=== PATIENT | male | born 1940 | race Caucasian/White ===

== ENCOUNTER 2017-05-05 13:58 | Inpatient (IN) | payer MEDICARE ==
[2017-05-05] MEDS ORDERED: NS 0.9% 1000 ML* 1,000 ML IV ONE (14:25)
[2017-05-05 14:56] LABS: Urine Bilirubin Negative (Negative); Urine Glucose Negative (Negative); Urine Nitrite Negative (Negative)
--- NOTE | 2017-05-05 15:01 | RAD ---
INDICATION: Dizziness, CHF. COMPARISON: Comparison is made with a prior study from July 19, 2016. TECHNIQUE: A portable view of the chest was obtained. FINDINGS: The heart appears mildly enlarged and unchanged. The lungs appear hyperinflated and grossly clear. No pleural effusion is seen. IMPRESSION: NO EVIDENCE FOR ACUTE FINDING.
[2017-05-05] MEDS ORDERED: diPHENhydraMINE IV* 50 MG/ML 1 ml VIAL (BENADRYL) IV ONE (15:12)
[2017-05-05 15:56] LABS: Hematocrit 41 % (42-52); Hemoglobin 13.8 g/dl (14.0-18.0); Mean Corpuscular HGB Conc 33 g/dl (31-36); Mean Corpuscular Hemoglobin 31 pg (27-31); Mean Corpuscular Volume 94 fL (80-94); Mean Platelet Volume 7 um3 (7.4-10.4); Red Blood Count 4.41 10^6/ul (4.0-5.4); Red Cell Distribution Width 14 % (10.5-15); White Blood Count 11.6 10^3/ul (3.5-10.8)
[2017-05-05 16:06] LABS: Comments Flag Yes
[2017-05-05 16:08] LABS: Add Diff/Slide Review? Slide Review Added
[2017-05-05 16:16] LABS: Troponin I 0.02 ng/mL (<0.04)
[2017-05-05 16:18] LABS: Albumin 3.8 g/dL (3.2-5.2); C Reactive Protein 2.75 mg/L (< 5.00); Calcium 9.4 mg/dL (8.6-10.3); EGFR African American 103.4 (>60); EGFR Non-African American 80.4 (>60); Globulin 2.7 g/dL (2-4); Magnesium 2.2 mg/dL (1.9-2.7); Potassium 3.7 mmol/L (3.5-5.0); Total Bilirubin 0.6 mg/dL (0.2-1.0); Total Protein 6.5 g/dL (6.4-8.9)
[2017-05-05 16:22] LABS: TSH (Thyroid Stimulating Horm) 1.72 mcIU/mL (0.34-5.60)
[2017-05-05] MEDS ORDERED: Acetaminophen TAB* 325 MG PO PRN (17:51)
[2017-05-05] MEDS ORDERED: Ondansetron INJ* 2 MG/ML VIAL IV PRN (17:54)
[2017-05-05] MEDS ORDERED: NS 0.9% 1000 ML* 1,000 ML IV SCH (18:00)
[2017-05-05] MEDS ORDERED: Albuterol 2.5 MG/3 ML NEB.SOL* (0.083%) INH PRN (18:06)
[2017-05-05] MEDS ORDERED: Dextrose 50% Syringe 50 ML* 25 GM/50 ML SYRINGE IV PUSH PRN (18:08)
[2017-05-05] MEDS ORDERED: Potassium Chlor TAB* 20 MEQ TAB.ER PO ONE (18:11)
[2017-05-05] MEDS: NS 0.9% 1000 ML* 2,000 ML IV ONE ×2 (18:19→18:20)
--- NOTE | 2017-05-05 20:19 | ED ---
Karla Cuba Alok, scribed for Ruiz Ornelas MD on 05/05/17 at 1522 . Shortness of Breath - HPI Summary HPI Summary: 76M presents to the ED BIBA for SOB accompanied by dizziness. Pt states that his dizziness has been on and off for the past 2 months, worsening today, and is described as a room-spinning. Pt states that his dizziness has improved significantly since EMS administered 20 mg Cardiosom. His dizziness worsens with standing and improves while in supine position. Pt also notes a chest discomfort since this morning as well as nausea and unsteady gait. Pt also notes a rash on his abd for the last 2 months with pruritus. Pt also notes diplopia of the left eye with h/o a left eye cataract. Pt denies GREENE. PMHx includes arthritis and DM. Pt denies anti-coagulant use. - History of Current Complaint Chief Complaint: EDShortnessOfBreath Time Seen by Provider: 05/05/17 14:02 Hx Obtained From: Patient Onset/Duration: Lasting Weeks, Still Present, Worse Since - This morning Current Severity: Moderate Dyspnea At: Exertion Associated Signs & Symptoms: Chest Pain Unrelated to Cough, Diaphoresis, Dizzy - Allergy/Home Medications Allergies/Adverse Reactions: Allergies Allergy/AdvReac Type Severity Reaction Status Date / Time Horse Allergy Allergy Difficulty Verified 07/20/16 14:12 Breathing/Wheezing Peanut-derived Allergy Difficulty Verified 02/05/16 17:05 Breathing/Wheezing Penicillins [PCN] Allergy Difficulty Verified 02/05/16 17:05 Breathing/Wheezing HORSE HAIR Allergy Difficulty Uncoded 02/05/16 17:05 Breathing/Wheezing Home Medications: Home Medications Chlorhexidine MOUTHWASH 0.12%* [Peridex Mouth Wash 0.12%*] 15 ml PO BID [History Confirmed 05/05/17] Lisinopril TAB* [Prinivil TAB*] 10 mg PO DAILY 05/05/17 [History Confirmed 05/05] PMH/Surg Hx/FS Hx/Imm Hx Endocrine/Hematology History: Reports: Hx Diabetes Cardiovascular History: Reports: Hx Hypertension Denies: Hx Congestive Heart Failure, Hx Pacemaker/ICD Respiratory History: Reports: Hx Asthma, Hx Chronic Obstructive Pulmonary Disease (COPD), Hx Sleep Apnea - bipap at night GI History: Reports: Hx Gastroesophageal Reflux Disease History: Reports: Other Problems/Disorders - urinary retention & turp Denies: Hx Renal Disease Sensory History: Reports: Hx Contacts or Glasses - for reading Denies: Hx Hearing Aid Opthamlomology History: Reports: Hx Contacts or Glasses - for reading Neurological History: Reports: Other Neuro Impairments/Disorders - le neuropathy Psychiatric History: Denies: Hx Panic Disorder - Surgical History Surgery Procedure, Year, and Place: turp @ [facility] [place]; cataract right eye - Immunization History Date of Tetanus Vaccine: Within 10 years Date of Influenza Vaccine: 2011 Infectious Disease History: No Infectious Disease History: Reports: Hx Clostridium Difficile, Hx of Known/ Suspected MRSA - 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, not active, Hx Shingles - not active Denies: Traveled Outside the [place] in Last 30 Days - Family History Known Family History: Negative: Cardiac Disease, Diabetes Family History: R& n/C - Social History Occupation: Retired Lives: With Family Alcohol Use: None Hx Substance Use: No Substance Use Type: Reports: None Hx Tobacco Use: Yes Smoking Status (MU): Former Smoker Review of Systems Negative: Fever Positive: Diplopia Positive: Chest Pain Positive: Shortness Of Breath Positive: Nausea Positive: Rash Neurological: Other - Dizziness, unsteady gait Negative: Headache All Other Systems Reviewed And Are Negative: Yes Physical Exam - Summary Physical Exam Summary: The patient is well-nourished in no acute distress and in no acute pain. Patient has no symptoms when sitting up. The skin is warm and dry and skin color reflects adequate perfusion. Maculopapular rash on trunk and upper extremities which looks to represent hives. HEENT: There is a horizontal nystagmus evident.The head is normocephalic and atraumatic. The pupils are equal and reactive. The conjunctivae are clear and without drainage. Nares are patent and without drainage. Mouth reveals moist mucous membranes and the throat is without erythema and exudate. The external ears are intact. The ear canals are patent and without drainage. The tympanic membranes are intact. Neck is supple with full range of motion and non-tender. There are no carotid bruits. There is no neck vein distension. Respiratory: Chest is non-tender. Lungs are clear to auscultation and breath sounds are symmetrical and equal. Cardiovascular: Heart is irregular but controlled. There is no murmur or rub auscultated. There is no peripheral edema and pulses are symmetrical and equal. Abdomen: The abdomen is obese, soft and non-tender. There are normal bowel sounds heard in all four quadrants and there is no organomegaly palpated. Musculoskeletal: There is no back pain noted. Extremities are non-tender with full range of motion. There is good capillary refill. There is no peripheral edema or calf tenderness elicited. No motor weakness. Neurological: Patient is alert and oriented to person, place and time. The patient has symmetrical motor strength in all four extremities. Cranial nerves are grossly intact. Deep tendon reflexes are symmetrical and equal in all four extremities. Psychiatric: The patient has an appropriate affect and does not exhibit any anxiety or depression. Triage Information Reviewed: Yes Vital Signs On Initial Exam: Initial Vitals Temp Pulse Resp BP Pulse Ox 98.3 F 69 22 148/88 100 05/05/17 14:04 05/05/17 14:04 05/05/17 14:04 05/05/17 14:04 05/05/17 14:04 Vital Signs Reviewed: Yes - [place] Coma Scale Coma Scale Total: 15 Diagnostics - Vital Signs Vital Signs Temp Pulse Resp BP Pulse Ox 05/05/17 14:10 10 05/05/17 14:09 148/88 05/05/17 14:04 98.3 F 69 22 148/88 100 - Laboratory Lab Results: Lab Results 05/05/17 Range/Units 14:28 Urine Color Yellow Urine Appearance Clear Urine pH 7.0 (5-9) Ur Specific [place] 1.006 L (1.010-1.030) Urine Protein Negative (Negative) Urine Ketones Negative (Negative) Urine Blood Negative (Negative) Urine Nitrate Negative (Negative) Urine Bilirubin Negative (Negative) Urine Urobilinogen Negative (Negative) Ur Leukocyte Esterase Negative (Negative) Urine Glucose Negative (Negative) Result Diagrams: 05/05/17 15:35 05/05/17 15:35 Lab Statement: Any lab studies that have been ordered have been reviewed, and results considered in the medical decision making process. - Radiology CXR Xray Interpretation: Positive (See Comments) - IMPRESSION: NO EVIDENCE FOR ACUTE FINDING. Radiology Interpretation Completed By: Radiologist - EKG [id number] Cardiac Rate: NL - 72 bpm EKG Rhythm: Sinus Rhythm Ectopy: PACs EKG Interpretation: Poor R-wave progression. Left axis deviation Course/Dx - Diagnoses Differential Diagnosis/HQI/PQRI: Positive: DC, Pneumonia, Other - new onset atrial fibrillation Provider Diagnoses: Orthostatic hypertension, New onset a-fib - Physician Notifications Discussed Care of Patient With: Nazanin Hutchins - Will admit pt to [facility] [place] Time Discussed With Above Provider: 17:21 Discharge - Discharge Plan Condition: Stable Disposition: ADMITTED TO [facility] documentation as recorded by the Karla aiken Alok accurately reflects the service I personally performed and the decisions made by me, Ruiz Ornelas MD.
[2017-05-05] MEDS: Metoprolol Tartrate TAB* 25 MG PO SCH (20:49)
[2017-05-05] MEDS: Apixaban* 5 MG TAB PO SCH (20:49)
[2017-05-05] MEDS: Chlorhexidine MOUTHWASH 0.12%* 15 ML UDC SWISH SPIT SCH (20:51)
[2017-05-05] MEDS: diPHENhydraMINE PO* 25 MG PO PRN (20:54)
[2017-05-06] MEDS: Levothyroxine TAB* 112 MCG TAB PO SCH (05:59)
[2017-05-06] MEDS: diPHENhydraMINE PO* 25 MG PO PRN ×3 (06:02→20:55)
[2017-05-06 06:21] LABS: Hematocrit 40 % (42-52); Hemoglobin 13.3 g/dl (14.0-18.0); Mean Corpuscular HGB Conc 33 g/dl (31-36); Mean Corpuscular Hemoglobin 31 pg (27-31); Mean Corpuscular Volume 95 fL (80-94); Mean Platelet Volume 7 um3 (7.4-10.4); Red Blood Count 4.25 10^6/ul (4.0-5.4); Red Cell Distribution Width 14 % (10.5-15); White Blood Count 10.2 10^3/ul (3.5-10.8)
[2017-05-06 06:35] LABS: BUN/Creatinine Ratio 10.8 (8-20); Calcium 9.1 mg/dL (8.6-10.3); EGFR African American 102.1 (>60); EGFR Non-African American 79.4 (>60); Potassium 4.1 mmol/L (3.5-5.0)
[2017-05-06] MEDS ORDERED: Lisinopril TAB* 10 MG PO SCH (09:00)
[2017-05-06] MEDS: Chlorhexidine MOUTHWASH 0.12%* 15 ML UDC SWISH SPIT SCH ×2 (09:47→20:55)
[2017-05-06] MEDS: Insulin LISPRO* 1 UNITS UNIT SUBCUT SCH ×3 (09:47→17:32)
[2017-05-06] MEDS: Metoprolol Tartrate TAB* 25 MG PO SCH ×2 (09:48→20:55)
[2017-05-06] MEDS: Tamsulosin CAP* 0.4 MG PO SCH (09:48)
[2017-05-06] MEDS: Apixaban* 5 MG TAB PO SCH ×2 (09:48→20:55)
--- NOTE | 2017-05-06 10:54 | PN ---
Subjective Date of Service: 05/06/17 Interval History: This is a 76 yo gentleman with DM, ANTONIETA, HTN, morbid obesity and HLD who presented with h/o lightheadedness and nausea. Initial EMS strips were interpreted as afib with HR 170-200 bpm and patient was admitted for additional monitoring. Patient has been asx since admission. No changes on telemetry Objective Active Medications: Acetaminophen (Tylenol Tab*) 650 mg PO Q4H PRN PRN Reason: FEVER/PAIN Albuterol (Ventolin Hfa Inhaler*) 1 puff INH BID PRN PRN Reason: SHORTNESS OF BREATH Albuterol (Ventolin 2.5 Mg/3 Ml Neb.Sary*) 2.5 mg INH Q2H PRN PRN Reason: SOB/WHEEZING Last Admin: 05/05/17 22:04 Dose: 2.5 mg Apixaban (Eliquis*) 5 mg PO BID [facility] Last Admin: 05/06/17 09:48 Dose: 5 mg Chlorhexidine Gluconate (Peridex Mouth Wash 0.12%*) 15 ml SWISH SPIT BID [facility] Last Admin: 05/06/17 09:47 Dose: 15 ml Dextrose (D50w Syringe 50 Ml*) 12.5 gm IV PUSH .FOR FS < 60 - SS PRN PRN Reason: FS < 60 Diphenhydramine HCl (Benadryl Po*) 25 mg PO Q6H PRN PRN Reason: ITCHING Last Admin: 05/06/17 06:02 Dose: 25 mg Insulin Human Lispro (Humalog*) 0 units SUBCUT AC [facility] PRN Reason: Protocol Last Admin: 05/06/17 09:47 Dose: 2 units Levothyroxine Sodium (Synthroid Tab*) 112 mcg PO 0600 [facility] Last Admin: 05/06/17 05:59 Dose: 112 mcg Lisinopril (Prinivil Tab*) 10 mg PO DAILY [facility] Last Admin: 05/06/17 09:48 Dose: 10 mg Metoprolol Tartrate (Lopressor Tab*) 12.5 mg PO Q12HR [facility] Last Admin: 05/06/17 09:48 Dose: 12.5 mg Ondansetron HCl (Zofran Inj*) 4 mg IV Q6H PRN PRN Reason: NAUSEA Tamsulosin HCl (Flomax Cap*) 0.4 mg PO DAILY [facility] Last Admin: 05/06/17 09:48 Dose: 0.4 mg Vital Signs: Temp Pulse Resp BP Pulse Ox 98.8 F 65 16 205/78 99 05/06/17 07:47 05/06/17 08:11 05/06/17 08:02 05/06/17 08:11 05/06/17 07:47 Oxygen Devices in Use Now: Nasal Cannula Appearance: Well appearing and in NAD Respiratory: Symmetrical Chest Expansion and Respiratory Effort, Clear to Auscultation Cardiovascular: NL Sounds; No Murmurs; No JVD, RRR Abdominal: NL Sounds; No Tenderness; No Distention Extremities: No Edema Neurological: Alert and Oriented x 3 Result Diagrams: 05/06/17 06:13 05/06/17 06:13 Additional Lab and Data: . Diagnostic Imaging: EKG - sinus, 1st deg block CXR - NAD Assess/Plan/Problems-Billing Assessment: This a 76 yo gentleman with DM, ANTONIETA, morbid obesity, and HLD who presented with c/o lightheadedness and nausea. Admitted with possible new afib with RVR. - Patient Problems (1) Palpitations Comment: Patient had c/o lightheadedness and nausea, initial EMS strip interpreted as afib with rate 170-200 bpm Re-evaluated by funeral planning counselor, Dr La, who felt that intial strips demonstrating afib was more likely to be artifact Cont anticoagulation with Eliquis and BB Hold off on any antiarrythmics at this time Echo ordered for tomorrow (2) HTN (hypertension) Comment: Noted to be rather persistently hypertensive Increase lisinopril and add amlodipine (3) DM type 2 (diabetes mellitus, type 2) Comment: Cont SS Humalog coverage (4) ANTONIETA (obstructive sleep apnea) Comment: cont BIPAP at night Consider repeat sleep study as an outpatient Plan for continuous pulse ox tonight as his symptoms have been generally occurring in the am (5) Hypothyroidism Comment: TSH WNL Cont current levothyroxine dose (6) DVT prophylaxis Comment: Danitza (7) Full code status Status and Disposition: Transition to inpatient. Cont telemetry monitoring. Possible dc tomorrow
[2017-05-06] MEDS ORDERED: Lisinopril TAB* 10 MG PO ONE (11:06)
[2017-05-06] MEDS ORDERED: amLODIPine TAB* 5 MG PO ONE (11:06)
--- NOTE | 2017-05-06 12:01 | HP ---
CC: EUNICE Blackwell* HISTORY AND PHYSICAL: DATE OF ADMISSION: 05/05/17 PRIMARY CARE PROVIDER: EUNICE Blackwell. ATTENDING PHYSICIAN WHILE IN THE HOSPITAL: Rosendo Collins MD* (report is being dictated by Harsh Romero NP). CHIEF COMPLAINT: 1. Lightheadedness with position change. 2. Dizziness. 3. Nausea. HISTORY OF PRESENT ILLNESS: Mr. Pierce is a 76-year-old male patient with morbid obesity, history of diabetes, COPD, hypertension, hyperlipidemia, ANTONIETA, asthma, and history of osteomyelitis in the past. He comes in today stating that over the last couple of weeks to two weeks he has noticed particularly when he wakes up in the morning he feels lightheaded, he feels dizzy, he feels nauseated. Typically these symptoms resolve after he sits down for a while, but he noticed today that when he got up the symptoms did not resolve. He kept feeling dizzy, he kept feeling lightheaded. He denied having any palpitations or chest pain. He denied having any orthopnea. He denied feeling short of breath. He did admit having fullness in his chest but he was concerned because his symptoms were not going away like they used to. He called 911 around noon time and it was noted when he got into ambulance heart rate was in 200s, they gave him diltiazem and his heart rate got down into the 60s and 70s with this and he appeared to be in AFib which was new for him. He denied any recent fevers. No recent change in medications. Denies having any abdominal pain or any nausea, vomiting or diarrhea. He was evaluated in the ER, rate was controlled all time, however it was noted that he was appeared to be orthostatic , because of this the hospitalist service was asked to evaluate for admission. PAST MEDICAL HISTORY: Significant for: 1. Diabetes. 2. Obesity. 3. COPD. 4. Hypertension. 5. Hyperlipidemia. 6. ANTONIETA. 7. Asthma. 8. Osteomyelitis. PAST SURGICAL HISTORY: 1. He has had a heart catheterization. 2. Toe amputation. 3. Prostatectomy. HOME MEDICATIONS: Include: 1. Flomax 0.4 mg daily. 2. Singulair 10 mg daily. 3. Metformin 1500 mg p.o. daily. 4. Lisinopril 10 mg daily. 5. Synthroid 112 mcg daily. 6. Lasix 40 mg daily. 7. Peridex mouthwash 15 cc p.o. b.i.d. 8. Ventolin one puff inhaled b.i.d. as needed. 9. Tylenol 650 mg p.o. every 4 hours as needed. ALLERGIES TO MEDICATIONS: Include PENICILLIN. FAMILY HISTORY: Mother had a history of liver cancer. Father had a history of aneurysm. SOCIAL HISTORY: He is a former smoker. He does not drink alcohol. Surrogate decision maker is his . REVIEW OF SYSTEMS: There is no documented fever. He denied having any significant weight change. There was no double vision. There was no ear discharge. He denied having any rhinorrhea, no sore throat, no thyroid enlargement. He denies having any chest pain. There was no orthopnea. No nocturnal dyspnea. There was no abdominal pain. No nausea. No vomiting. No dysuria. No frequency. No loss of consciousness. No pruritus and no skin ulcerations. Review of 14 systems completed, all others negative. PHYSICAL EXAMINATION GENERAL: At this time, Mr. Pierce is a 76-year-old male patient. He is sitting in the ER stretcher. Does not appear to be in acute distress. VITAL SIGNS: Blood pressure 145/81, pulse 64, respirations 16, O2 saturation 100% on 2 L, temperature 98.3. HEENT: Head atraumatic, normocephalic. Eyes: EOMs are intact. Sclerae anicteric and not pale. Throat: Oral mucosa appears to be moist. No oropharyngeal erythema. NECK: Supple. HEART: Heart sounds S1 and S2. Irregularly irregular rate. No murmurs, rubs, or gallops. LUNGS: Clear to auscultation. No wheezes, rales, or rhonchi. ABDOMEN: Soft, flat, nontender. Bowel sounds present. EXTREMITIES: Pulses 2+ throughout. He is able to move all 4 extremities with 5 /5 strength. NEUROLOGIC: He is awake, alert, oriented x3. Tongue is midline. Rn Quality are equal. No gross focal deficits. SKIN: Intact. LABORATORY DATA/DIAGNOSTIC DATA: Today revealed, WBC 11.6, RBC 4.41, hemoglobin 13.8, hematocrit 41, platelet count 295. INR 0.98. Sodium 137, potassium 3.7, chloride 105, bicarbonate 25, BUN 12, creatinine 0.92, glucose 121, lactic 1.8, calcium 9.4, magnesium 2.2. Total bilirubin 0.6, AST 18, ALT 16, alk phos 35, CK 104, troponin 0.02. CRP at 2.75. BNP of 45. Albumin 3.8. TSH normal. Urine was negative. He did have a chest x-ray obtained today, which reveals no evidence for acute finding. He had an EKG obtained today, which showed atrial fibrillation, rate of 72, no ST elevation or T wave inversions were noted. Old medical records were reviewed. ASSESSMENT AND PLAN: Mr. Pierce is a 76-year-old male patient, coming in to the ER today with complaints of an irregular heartbeat and feeling dizzy and just not feeling well, feeling nauseated in the morning. On evaluation in the ambulance, it was noted that he appeared to be in AFib with RVR, heart rate in the 200s. He was given a dose of diltiazem, he broke down into atrial fibrillation. On evaluation in the ED he was noted that he appeared to be orthostatic, when he stood up heart rate was 60 to 117, in addition his systolic went from 117 to 150s. We were asked to evaluate for admission, he will be admitted under observation status for: 1. Atrial fibrillation, at this point his rate is controlled. I will place him on Eliquis. We will continue him on Lopressor per the recommendation of Dr. La on 12.5 b.i.d. and titrate to effect. We will also get an echo tomorrow. I will not as he is clearly not having any chest pain and for the time being we will go ahead and try to get his potassium right or near 4. I am going to give him 40 mEq of K. 2. ANTONIETA. We will go ahead and place him on CPAP. 3. Diabetes, place him on a sliding scale. 4. COPD, I have ordered p.r.n. albuterol. 5. Hyperlipidemia, continue medications as described. 6. Asthma, p.r.n. albuterol has been ordered. 7. DVT prophylaxis, he will be on Eliquis. 8. Code status. Full code. 9. Fluids, nutrition. He can have a heart-healthy diet. TIME SPENT: Time spent on the admission was approximately 60 minutes, greater than half the time was spent [id number] with the patient obtaining my history and physical; other half the time spent going over the plan of care with the patient and implementing plan of care. I did discuss the plan of care with my attending, Dr. Collins, he is in agreement. HARSH ROMERO, CINETECHNICIAN [id number]/[facility] #: [id number] [facility]
[2017-05-06] MEDS: Albuterol HFA INHALER* 8 gm MDI INH PRN (14:47)
--- NOTE | 2017-05-07 00:47 | CONS ---
CARDIOLOGY CONSULTATION: DATE OF CONSULT: 05/06/17. INDICATION FOR CONSULTATION: Tachycardia, lightheadedness. HISTORY OF PRESENT ILLNESS: The patient was transported to the hospital after having an episode of feeling lightheaded and dizzy and near syncopal at home. The patient states that for the past coupl e of months, he has had these episodes in the morning where he gets up in the morning, he feels unco mfortable and unsteady on his feet. He feels like he is going to pass out. He states he rests afte r breakfast and these symptoms resolve. He does not have those symptoms the rest of the day. The pa joaquin states that over the last couple of months, he has taken his heart rate and blood pressure dur ing these episodes. Occasionally, his blood pressure will be elevated, systolic blood pressures to the 170s, diastolic pressures in the 80s. His heart rates have generally been below 100 beats a tri te. Yesterday morning, the patient had another one of these episodes. He felt like he was going to pass out and called the ambulance. On arrival of the ambulance, the patient was in tachycardia, registered up 190 beats a minute. The patient was given IV diltiazem in the ambulance on his route to the hospital. On arrival to [facility], he was in normal sinus rhythm with normal blood pressure. Overnight, the patient was in norm al sinus rhythm. He was started on Eliquis here in the hospital. I personally reviewed the EKG strips from the ambulance run and did not see any episodes of atrial f ibrillation. There was a tremendous amount of artifact on the telemetry strips, but no clear eviden ce of atrial fibrillation or atrial flutter. Each of the rhythms that had a clear baseline were in n ormal sinus rhythm with frequent PACs. Overnight, the patient has had no symptoms. PAST MEDICAL HISTORY: Significant for diabetes, morbid obesity, asthma, COPD, hypertension, hyperl ipidemia, obstructive sleep apnea, he does wear a CPAP machine, BPH. OUTPATIENT MEDICATIONS: 1. Singulair 5 mg a day. 2. Lasix 40 mg a day. 3. Levothyroxine 112 mcg a day. 4. Flomax 0.4 mg a day. 5. Albuterol inhaler. 6. Metformin 1500 mg a day. 7. Lisinopril 10 mg a day. ALLERGIES: PENICILLIN, TETANUS, HORSE SERUM. FAMILY HISTORY: No family history of early coronary artery disease or arrhythmias. SOCIAL HISTORY: He has used tobacco in the past, but has quit many years ago. Rare alcohol intake. He lives with his . He is retired. He does not get any regular exercise. He has severe arthr itis. PHYSICAL EXAM: Height is 5 feet 11 inches, weight is 320 pounds, temperature 98.8, heart rate is 50 , blood pressure 148/65, respiratory rate is 16, oxygen saturation 99% on room air. Sclerae are ani cteric. Oropharynx is pink without erythema. Carotids are 2+ without bruits. JVD is normal. Thyro id is normal. Cardiac Exam: S1, S2, without any murmurs, rubs, or gallops. Lungs are clear to ausc ultation bilaterally. There is no dullness to percussion. Abdomen is obese, soft, nontender and no ndistended. Normoactive bowel sounds. Extremities show 1+ edema. He has 2+ pulses throughout. The patient is awake, alert, and oriented. He moves all four extremities equally. LABORATORY STUDIES: CBC within normal limits. His hemoglobin is 13, hematocrit 40, platelet count 282. Chemistries within normal limits. BUN 10, creatinine 0.93. Initial troponin level 0.02. TSH 1.72. AST and ALT are within normal limits. IMPRESSION: This is a 76-year-old gentleman who had the ambulance called to his house because of ne ar syncope. The patient was originally diagnosed with atrial fibrillation with rapid ventricular re sponse up to a heart rate of 193 beats per minute. In reviewing the strips from the ambulance run, I do not see any evidence of atrial fibrillation. There is a tremendous amount of the artifact on t he monitored strips. All the monitored strips with clear QRSs within normal sinus rhythm. I am not exactly sure what the cause of his overall symptoms are. It seems less likely that it was a significant arrhythmia causing his symptoms. It may be related to his blood pressure. For now, my recommendation is to observe him overnight again to see if there is any arrhythmias. Th e patient will get an echocardiogram in the morning. The patient will continue on Eliquis for now in case he has any true episodes of atrial fibrillation . I will reevaluate his anticoagulation in the morning. This was discussed with Jose Antonio Marzulla, nurse practitioner. [id number]/[facility] #: [id number]
[2017-05-07] MEDS: diPHENhydraMINE PO* 25 MG PO PRN (06:03)
[2017-05-07] MEDS: Levothyroxine TAB* 112 MCG TAB PO SCH (06:03)
[2017-05-07 08:13] VITALS: BP 164/82
[2017-05-07] MEDS: Tamsulosin CAP* 0.4 MG PO SCH (08:45)
[2017-05-07] MEDS: Apixaban* 5 MG TAB PO SCH (08:45)
[2017-05-07] MEDS: Chlorhexidine MOUTHWASH 0.12%* 15 ML UDC SWISH SPIT SCH (08:45)
[2017-05-07] MEDS: Insulin LISPRO* 1 UNITS UNIT SUBCUT SCH ×2 (08:46→13:24)
[2017-05-07] MEDS ORDERED: Lisinopril TAB* 10 MG PO SCH (09:00)
[2017-05-07] MEDS ORDERED: amLODIPine TAB* 5 MG PO SCH (09:00)
--- NOTE | 2017-05-07 09:34 | PN ---
Subjective Date of Service: 05/07/17 Interval History: Patient reports that he had 2 dizzy episodes yesterday afternoon that lasted less than 30 sec. He was seated at the time. He reports this was similar, but less severe than his similar episodes. Review of telemetry from that time was unremarkable. He also reports that he has poor vision out of the L eye and is wondering if that is contributing to his symptoms. Objective Active Medications: Acetaminophen (Tylenol Tab*) 650 mg PO Q4H PRN PRN Reason: FEVER/PAIN Albuterol (Ventolin Hfa Inhaler*) 1 puff INH BID PRN PRN Reason: SHORTNESS OF BREATH Last Admin: 05/06/17 14:47 Dose: 1 puff Albuterol (Ventolin 2.5 Mg/3 Ml Neb.Sary*) 2.5 mg INH Q2H PRN PRN Reason: SOB/WHEEZING Last Admin: 05/05/17 22:04 Dose: 2.5 mg Amlodipine Besylate (Norvasc Tab*) 5 mg PO DAILY [facility] Last Admin: 05/07/17 08:45 Dose: 5 mg Apixaban (Eliquis*) 5 mg PO BID [facility] Last Admin: 05/07/17 08:45 Dose: 5 mg Chlorhexidine Gluconate (Peridex Mouth Wash 0.12%*) 15 ml SWISH SPIT BID [facility] Last Admin: 05/07/17 08:45 Dose: 15 ml Dextrose (D50w Syringe 50 Ml*) 12.5 gm IV PUSH .FOR FS < 60 - SS PRN PRN Reason: FS < 60 Diphenhydramine HCl (Benadryl Po*) 25 mg PO Q6H PRN PRN Reason: ITCHING Last Admin: 05/07/17 06:03 Dose: 25 mg Insulin Human Lispro (Humalog*) 0 units SUBCUT AC [facility] PRN Reason: Protocol Last Admin: 05/07/17 08:46 Dose: 2 units Levothyroxine Sodium (Synthroid Tab*) 112 mcg PO 0600 [facility] Last Admin: 05/07/17 06:03 Dose: 112 mcg Lisinopril (Prinivil Tab*) 20 mg PO DAILY [facility] Last Admin: 05/07/17 08:45 Dose: 20 mg Ondansetron HCl (Zofran Inj*) 4 mg IV Q6H PRN PRN Reason: NAUSEA Tamsulosin HCl (Flomax Cap*) 0.4 mg PO DAILY [facility] Last Admin: 05/07/17 08:45 Dose: 0.4 mg Vital Signs: Temp Pulse Resp BP Pulse Ox 98.5 F 85 14 164/82 97 05/07/17 07:42 05/07/17 08:32 05/07/17 08:32 05/07/17 07:42 05/07/17 08:32 Oxygen Devices in Use Now: Nasal Cannula Appearance: Well appearing elderly gentleman in NAD, accompanied by his Respiratory: Symmetrical Chest Expansion and Respiratory Effort, Clear to Auscultation Cardiovascular: NL Sounds; No Murmurs; No JVD, RRR Abdominal: NL Sounds; No Tenderness; No Distention Extremities: - - trace edema Neurological: Alert and Oriented x 3 Result Diagrams: 05/06/17 06:13 05/06/17 06:13 Additional Lab and Data: . Diagnostic Imaging: EKG - sinus, 1st deg block CXR - NAD Overnight pulse ox - essential normal, one desaturation event to 86% for less than 10 sec Echo - pend Tele - sinus anastacio Assess/Plan/Problems-Billing Assessment: This a 76 yo gentleman with DM, ANTONIETA, morbid obesity, and HLD who presented with c/o lightheadedness and nausea. Admitted with possible new afib with RVR. - Patient Problems (1) Palpitations Comment: Patient had c/o lightheadedness and nausea, initial EMS strip interpreted as afib with rate 170-200 bpm and he reported symptomatic improvement with IV diltiazem EMS strips re-evaluated by legal entity controller, Dr La, who felt that intial strips demonstrating afib was more likely to be artifact Cont anticoagulation with Eliquis Noted persistent bradycardia so BB has been stopped Hold off on any antiarrythmics at this time Echo pending for today (2) HTN (hypertension) Comment: Noted to be rather persistently hypertensive Increased lisinopril and added amlodipine (3) DM type 2 (diabetes mellitus, type 2) Comment: Cont SS Humalog coverage (4) ANTONIETA (obstructive sleep apnea) Comment: cont BIPAP at night Cont pulse ox overnight shows good oxygenation, this is unlikely to be contributing to his acute symptoms (5) Hypothyroidism Comment: TSH WNL Cont current levothyroxine dose (6) DVT prophylaxis Comment: Eliquis (7) Full code status Status and Disposition: Inpatient. Pending echo, possible discharge later today.
[2017-05-07] MEDS: Albuterol HFA INHALER* 8 gm MDI INH PRN (14:08)
--- NOTE | 2017-05-07 14:28 | ECHO ---
Patient: TAVO MCKEON [facility] Rec#: [id number] : 1940 Date: 05/07/2017 Age: 76y Height: 180.3 cm / 71.0 in Weight: 145.2 kg / 320.0 lbs Sex: M BSA: 2.6 Room#: 435 Admit Date#: 05/06/2017 Type: Inpatient Referring: Harsh Romero NP Reading: Benjamín La MD Cleat Feeder: Damaris Santana RN RDCS CC: EUNICE Blackewll Transthoracic Echocardiogram Indication: A. fib, SOB BP: 149/69 HR: 56 Rhythm: Bradycardia Findings History: HTN, DM, HLD, ANTONIETA, COPD, former smoker, asthma, morbid obesity Technical Comments: The study quality is fair. The study is technically limited due to patient body habitus. The study is technically limited due to the patient's history of COPD. The study is technically limited due to the patient's smoking history. Completed at 1205. Left Ventricle: The left ventricular chamber size is mildly dilated. Moderate concentric left ventricular hypertrophy is observed. Global left ventricular wall motion and contractility are within normal limits. Left ventricular systolic function is at the lower limits of normal. The estimated ejection fraction is 50-55%. There is an E to A reversal in the mitral valve flow pattern suggestive of diastolic dysfunction. Left Atrium: The left atrium is mildly dilated. Right Ventricle: The right ventricular cavity size is normal. The right ventricular global systolic function is low normal. Right Atrium: The right atrium is mildly dilated. Aortic Valve: The aortic valve is trileaflet. The aortic valve leaflets are mildly thickened. There is no evidence of aortic regurgitation. There is no evidence of aortic stenosis. Mitral Valve: The mitral valve leaflets are mildly thickened. There is trace to mild mitral regurgitation. There is no evidence of mitral stenosis. Tricuspid Valve: The tricuspid valve leaflets are normal. There is trace to mild tricuspid regurgitation. No pulmonary hypertension is noted. Pulmonic Valve: The pulmonic valve structure is not well visualized. There is a trace pulmonic regurgitation. There is no pulmonic stenosis. Pericardium: There is no significant pericardial effusion. A pericardial fat pad is visualized. Aorta: There is mild dilatation of the ascending aorta. There is no dilatation of the aortic arch. There is mild dilatation of the aortic root. Pulmonary Artery: The main pulmonary artery is not well visualized. Venous: The inferior vena cava is not visualized. Conclusions Global left ventricular wall motion and contractility are within normal limits. Left ventricular systolic function is at the lower limits of normal. The estimated ejection fraction is 50-55%. The right ventricular global systolic function is low normal. There is no evidence of aortic stenosis. There is trace to mild mitral regurgitation. There is trace to mild tricuspid regurgitation. No pulmonary hypertension is noted. There is no significant pericardial effusion. Measurements Name Value Normal Range RVDdMajor (2D) 3.8 cm (2.2 - 4.4) RAd ISD 4CH 5.3 cm (3.4 - 4.9) RA (A4C)W 4.7 cm (2.9 - 4.6) IVSd (2D) 1.4 cm (0.6 - 1) LVPWd (2D) 1.4 cm (0.6 - 1) LVIDd (2D) 5.6 cm (3.6 - 5.4) LVIDs (2D) 4 cm - LV FS (2D) 29 % (25 - 45) Aortic Annulus 2.3 cm (1.4 - 2.6) Ao root diameter (2D) 3.7 cm (2.1 - 3.5) Ascending Ao 4.2 cm (2.1 - 3.4) Aortic arch 1.8 cm (1.8 - 3.4) LA dimension (AP) 2D 4 cm (2.3 - 3.8) LAd ISD 4CH 4.9 cm (2.9 - 5.3) LA ISD 4CH W 4.5 cm (2.5 - 4.5) Name Value Normal Range LA ESV SP 4CH (A/L) 46 ml - LA ESV SP 2CH (A/L) 51 ml - LA ESV BP (A/L) 51 ml - LA ESV BP (A/L) index 20 ml/m2 - LA ESV SP 4CH (MOD) 41 ml - LA ESV SP 2CH (MOD) 48 ml - Name Value Normal Range MV E-wave Vmax 0.67 m/sec - MV deceleration time 251 msec - MV A-wave Vmax 0.86 m/sec - MV E:A ratio 0.78 ratio - LV septal e' Vmax 0.1 m/sec - LV lateral e' Vmax 0.09 m/sec - LV E:e' septal ratio 6.7 ratio - LV E:e' lateral ratio 7.4 ratio - Name Value Normal Range AV Vmax 1.7 m/sec - AV VTI 37.9 cm - AV peak gradient 11 mmHg - AV mean gradient 7 mmHg - LVOT Vmax 1.3 m/sec - LVOT VTI 29.7 cm - LVOT peak gradient 7 mmHg - LVOT mean gradient 4 mmHg - ISAIAS Vmax 0.43 m/sec - Name Value Normal Range TR Vmax 2.5 m/sec - TR peak gradient 25 mmHg - RAP 8 mmHg - RVSP 33 mmHg - Name Value Normal Range PV Vmax 0.91 m/sec -
--- NOTE | 2017-05-08 09:05 | DS ---
CC: EUNICE Blackwell; Dr. Denny* DISCHARGE SUMMARY: DATE OF ADMISSION: 05/05/17 DATE OF DISCHARGE: 05/07/17 PRIMARY CARE PROVIDER: EUNICE Blackwell. CONSULTING SUPERINTENDENT OIL FIELD DRILLING: Dr. La. PRIMARY SUPERINTENDENT OIL FIELD DRILLING: Dr. Denny DISCHARGING PROVIDER: EUNICE Lew. SUPERVISING PHYSICIAN: Dr. Madelyn Hale* (dictated by EUNICE Lew) PRIMARY DISCHARGE DIAGNOSES: 1. Dizziness of unclear etiology. 2. Hypertension. SECONDARY DISCHARGE DIAGNOSES: 1. Obstructive sleep apnea - overnight pulse ox on his BiPAP machine does show good oxygenation. 2. Non-insulin dependent diabetes. 3. Hypothyroidism. DISCHARGE MEDICATIONS: 1. Albuterol inhaler 1 puff inhaled twice daily as needed for shortness of breath. 2. Chlorhexidine mouth wash 15 mL p.o. twice daily. 3. Lasix 40 mg p.o. daily. 4. Levothyroxine 112 mcg p.o. daily. 5. Lisinopril 20 mg p.o. daily. 6. Metformin 1500 mg p.o. daily. 7. Singulair 10 mg p.o. daily. 8. Flomax 0.4 mg p.o. daily. 9. Amlodipine 5 mg p.o. daily. Medication changes: 1. Increase lisinopril. 2. Start amlodipine. HOSPITAL IMAGIN. Chest x-ray shows no acute findings. 2. Transthoracic echocardiogram shows left ventricular ejection fraction of 50 % to 55%, mild reduced right ventricular function without valvular abnormalities. 3. Overnight pulse oximetry shows just one desaturation event to 86% lasting less than 10 seconds, but otherwise saturations remained above 90% overnight. HOSPITAL COURSE: This is a pleasant 76-year-old gentleman with history of diabetes, obstructive sleep apnea, morbid obesity, hypertension and hyperlipidemia, who presented to the emergency department with complaints of dizziness. The patient had been having similar symptoms for the last few weeks that occurred in the mornings, but resolved spontaneously. When his symptoms became persistent and more severe, he contacted EMS. EMS had telemetry strip that was initially interpreted as atrial fibrillation with a rapid ventricular rate and the patient was subsequently admitted for further evaluation and appropriate treatment. He was started on Eliquis and a beta-grupo. The patient was evaluated by Dr. La who reviewed initial EMS telemetry strips and felt that it likely represented artifact rather than atrial fibrillation with rapid rate. The patient did receive a bolus of diltiazem in the ambulance and states that he did respond positively to this. The patient was maintained on continuous telemetry during his hospital stay and did not have any significant dysrhythmias. He did become bradycardic with the beta- grupo, which was subsequently discontinued. Echocardiogram was completed, which was essentially normal. No significant reduced ejection fraction, wall motion abnormalities or valvular abnormalities that would explain his symptoms. Overnight pulse ox was also completed thinking that perhaps incompletely treated obstructive sleep apnea may explain some of his symptoms, but his overnight study was unremarkable showing saturations above 90 % for the majority of the night and one desaturation event lasting less than 10 seconds. The patient had 2 brief fleeting episodes of dizziness, that were similar, but less severe to have brought him in during his hospital stay and there was no associated changes on telemetry. He was noted to be hypertensive throughout the majority of his stay and his lisinopril is increased since he was also started on amlodipine with some positive effect. DISPOSITION AND FOLLOWUP PLAN: The patient is being discharged to home. Exact etiology of his presenting symptoms are not entirely clear. He does require additional followup with his primary care provider and if he remains symptomatic , could consider Holter monitoring or longer term event monitor if deemed appropriate. The patient has previously established care with Dr. Denny if he requires further cardiology followup. EUNICE LEW [id number]/[facility] #: [id number] CHAZ
== END 2017-05-07 15:25 | disposition home or self-care (01) | DRG 149 ==
LOC: ED 13:58 → MEDTELE 17:42 → OBSVTOIN 05-06 15:40
PROVIDERS: ADMIT Hospitalist; ATTEND Internal Medicine
DX: R42 Dizziness and giddiness (principal); J44.9 Chronic obstructive pulmonary disease, unspecified; Z68.41 Body mass index [BMI] 40.0-44.9, adult; R00.1 Bradycardia, unspecified; E11.9 Type 2 diabetes mellitus without complications; M19.90 Unspecified osteoarthritis, unspecified site; H53.2 Diplopia; Z88.0 Allergy status to penicillin; L29.8 Other pruritus; Z91.010 Allergy to peanuts; I10 Essential (primary) hypertension; K21.9 Gastro-esophageal reflux disease without esophagitis; Z98.41 Cataract extraction status, right eye; Z86.14 Personal history of Methicillin resistant Staphylococcus aureus infection; Z87.891 Personal history of nicotine dependence; E66.01 Morbid (severe) obesity due to excess calories; G47.33 Obstructive sleep apnea (adult) (pediatric); E78.5 Hyperlipidemia, unspecified; Z89.429 Acquired absence of other toe(s), unspecified side; Z90.79 Acquired absence of other genital organ(s); Z80.0 Family history of malignant neoplasm of digestive organs; Z82.49 Family history of ischemic heart disease and other diseases of the circulatory system; I95.1 Orthostatic hypotension; E03.9 Hypothyroidism, unspecified; N40.0 Benign prostatic hyperplasia without lower urinary tract symptoms; Z88.7 Allergy status to serum and vaccine; Z79.84 Long term (current) use of oral hypoglycemic drugs; T44.7X5A Adverse effect of beta-adrenoreceptor antagonists, initial encounter
CPT/HCPCS: 36415; 71010; 80048; 80053; 81003; 82550; 83605; 83735; 83880; 84443; 84484; 85025; 85379; 85610; 86140; 93005; 93306; 94640; 94760; 94762; A9270-GY; J1200

== ENCOUNTER → 2017-08-17 02:26 | Emergency (ER) | payer MEDICARE ==
[~2017-08-17 02:26] MED LIST: NS 0.9% 1000 ML* 1,000 ML IV SCH; methylPREDNISolone 125 MG* 2 ML VIAL IV ONE
[2017-08-17 04:38] LABS: Hematocrit 42 % (42-52); Mean Corpuscular HGB Conc 33 g/dl (31-36); Mean Corpuscular Hemoglobin 31 pg (27-31); Mean Corpuscular Volume 93 fL (80-94); Mean Platelet Volume 8 um3 (7.4-10.4); Red Blood Count 4.56 10^6/ul (4.0-5.4); Red Cell Distribution Width 15 % (10.5-15); White Blood Count 15.8 10^3/ul (3.5-10.8)
[2017-08-17 04:42] LABS: Comments Flag Yes
[2017-08-17 04:43] LABS: Add Diff/Slide Review? Slide Review Added
[2017-08-17 04:52] LABS: Albumin 3.9 g/dL (3.2-5.2); BUN/Creatinine Ratio 15.2 (8-20); C Reactive Protein 10.41 mg/L (< 5.00); Calcium 9.3 mg/dL (8.6-10.3); EGFR African American 88.6 (>60); EGFR Non-African American 68.9 (>60); Globulin 3.1 g/dL (2-4); Potassium 4.1 mmol/L (3.5-5.0); Total Bilirubin 0.4 mg/dL (0.2-1.0)
[2017-08-17 05:16] LABS: TSH (Thyroid Stimulating Horm) 1.92 mcIU/mL (0.34-5.60)
--- NOTE | 2017-08-17 07:35 | ED ---
Marcia Cuba Abhishek, scribed for Dev Collins MD on 08/17/17 at 0554 . Skin Complaint - HPI Summary HPI Summary: This patient is a 77 year old M presenting to [facility] with a chief complaint of rash since 3 months ago. The CC is described as constant. The patient rates the pain 8/10 in severity. Symptoms aggravated by nothing. Symptoms alleviated by palpitation. Patient reports back pain In the upper medial region, right pedal infection, right pedal numbness. Patient denies decreased appetite, and dehydration. Pt states the pedal infection oozes. - History of Current Complaint Chief Complaint: EDRashSkinAbscess Stated Complaint: RASH Hx Obtained From: Patient Onset/Duration: Started Weeks Ago - 3 months ago, Still Present Skin Exposure Onset/Duration: Weeks Ago - 3 months ago Timing: Constant Onset Severity: Severe Current Severity: Severe Pain Intensity: 8 Pain Scale Used: 0-10 Numeric Character: Pain Aggravating Symptom(s): Nothing Alleviating Symptom(s): Other: - Palpation Associated Signs & Symptoms: Drainage - Additional Pertinent History Primary Care Physician: BALA - Allergy/Home Medications Allergies/Adverse Reactions: Allergies Allergy/AdvReac Type Severity Reaction Status Date / Time Horse Allergy Allergy Difficulty Verified 07/20/16 14:12 Breathing/Wheezing Peanut-derived Allergy Difficulty Verified 02/05/16 17:05 Breathing/Wheezing Penicillins [PCN] Allergy Difficulty Verified 02/05/16 17:05 Breathing/Wheezing HORSE HAIR Allergy Difficulty Uncoded 02/05/16 17:05 Breathing/Wheezing PMH/Surg Hx/FS Hx/Imm Hx Endocrine/Hematology History: Reports: Hx Diabetes Cardiovascular History: Reports: Hx Hypertension Denies: Hx Congestive Heart Failure, Hx Pacemaker/ICD Respiratory History: Reports: Hx Asthma, Hx Chronic Obstructive Pulmonary Disease (COPD), Hx Sleep Apnea - bipap at night GI History: Reports: Hx Gastroesophageal Reflux Disease History: Reports: Other Problems/Disorders - urinary retention & turp Denies: Hx Renal Disease Sensory History: Reports: Hx Contacts or Glasses - for reading Denies: Hx Hearing Aid Opthamlomology History: Reports: Hx Contacts or Glasses - for reading Neurological History: Reports: Other Neuro Impairments/Disorders - le neuropathy Psychiatric History: Denies: Hx Panic Disorder - Surgical History Surgery Procedure, Year, and Place: turp @ [facility] – [place] 2013; cataract right eye - Immunization History Date of Tetanus Vaccine: Within 10 years Date of Influenza Vaccine: 2011 Infectious Disease History: No Infectious Disease History: Reports: Hx Clostridium Difficile, Hx of Known/ Suspected MRSA - 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, not active, Hx Shingles - not active Denies: Traveled Outside the [place] in Last 30 Days - Family History Known Family History: Negative: Cardiac Disease, Diabetes - Social History Alcohol Use: None Hx Substance Use: No Substance Use Type: Reports: None Hx Tobacco Use: Yes Smoking Status (MU): Former Smoker Review of Systems Constitutional: Negative Eyes: Negative ENT: Negative Cardiovascular: Negative Respiratory: Negative Positive: Other - Negative decreased appetite and dehydration Genitourinary: Negative Positive: Other - back pain in the upper medial region, right pedal numbness Positive: Other - right pedal infection Neurological: Negative Psychological: Normal All Other Systems Reviewed And Are Negative: Yes Physical Exam - Summary Physical Exam Summary: General: well-appearing, no pain distress Skin: Right great toe distal aspect open skin 2 cm by 2 cm no drainage, diffused flanking erythematous rash over his body contiguous in his upper back and lateral legs and arms. Head: normal Eyes: EOMI, JONATHON ENT: normal Neck: supple, nontender Respiratory: CTA, breath sounds present Cardiovascular: RRR Abdomen: soft, nontender Bowel: present Musculoskeletal: normal, strength/ROM intact Neurological: normal, sensory/motor intact, A&O x3 Psychological: affect/mood appropriate Triage Information Reviewed: Yes Vital Signs On Initial Exam: Initial Vitals Temp Pulse Resp BP Pulse Ox 97.7 F 64 20 142/49 100 08/17/17 02:31 08/17/17 02:31 08/17/17 02:31 08/17/17 02:31 08/17/17 02:31 Vital Signs Reviewed: Yes - Pollock Coma Scale Coma Scale Total: 15 Diagnostics - Vital Signs Vital Signs Temp Pulse Resp BP Pulse Ox 08/17/17 02:31 97.7 F 64 20 142/49 100 - Laboratory Lab Results: Lab Results 08/17/17 08/17/17 08/17/17 Range/Units 04:15 04:15 04:15 WBC 15.8 H (3.5-10.8) 10^3/ul RBC 4.56 (4.0-5.4) 10^6/ul Hgb 14.0 (14.0-18.0) g/dl Hct 42 (42-52) % MCV 93 (80-94) fL MCH 31 (27-31) pg MCHC 33 (31-36) g/dl RDW 15 (10.5-15) % Plt Count 352 (150-450) 10^3/ul MPV 8 (7.4-10.4) um3 Neut % (Auto) 70.3 (38-83) % Lymph % (Auto) 6.7 L (25-47) % Costilla % (Auto) 10.9 H (1-9) % Eos % (Auto) 11.3 H (0-6) % Baso % (Auto) 0.8 (0-2) % Absolute Neuts (auto) 11.1 H (1.5-7.7) 10^3/ul Absolute Lymphs (auto) 1.1 (1.0-4.8) 10^3/ul Absolute Monos (auto) 1.7 H (0-0.8) 10^3/ul Absolute Eos (auto) 1.8 H (0-0.6) 10^3/ul Absolute Basos (auto) 0.1 (0-0.2) 10^3/ul Absolute Nucleated RBC 0.01 10^3/ul Nucleated RBC % 0 INR (Anticoag Therapy) 0.91 (0.89-1.11) APTT 31.0 (26.0-36.3) seconds Sodium 135 (133-145) mmol/L Potassium 4.1 (3.5-5.0) mmol/L Chloride 103 (101-111) mmol/L Carbon Dioxide 23 (22-32) mmol/L Anion Gap 9 (2-11) mmol/L BUN 16 (6-24) mg/dL Creatinine 1.05 (0.67-1.17) mg/dL Est GFR ( Amer) 88.6 (>60) Est GFR (Non-Af Amer) 68.9 (>60) BUN/Creatinine Ratio 15.2 (8-20) Glucose 132 H (70-100) mg/dL Lactic Acid (0.5-2.0) mmol/L Calcium 9.3 (8.6-10.3) mg/dL Total Bilirubin 0.40 (0.2-1.0) mg/dL AST 25 (13-39) U/L ALT 22 (7-52) U/L Alkaline Phosphatase 49 (34-104) U/L C-Reactive Protein 10.41 H (< 5.00) mg/L Total Protein 7.0 (6.4-8.9) g/dL Albumin 3.9 (3.2-5.2) g/dL Globulin 3.1 (2-4) g/dL Albumin/Globulin Ratio 1.3 (1-3) TSH 1.92 (0.34-5.60) mcIU/mL 08/17/17 Range/Units 04:15 WBC (3.5-10.8) 10^3/ul RBC (4.0-5.4) 10^6/ul Hgb (14.0-18.0) g/dl Hct (42-52) % MCV (80-94) fL MCH (27-31) pg MCHC (31-36) g/dl RDW (10.5-15) % Plt Count (150-450) 10^3/ul MPV (7.4-10.4) um3 Neut % (Auto) (38-83) % Lymph % (Auto) (25-47) % Costilla % (Auto) (1-9) % Eos % (Auto) (0-6) % Baso % (Auto) (0-2) % Absolute Neuts (auto) (1.5-7.7) 10^3/ul Absolute Lymphs (auto) (1.0-4.8) 10^3/ul Absolute Monos (auto) (0-0.8) 10^3/ul Absolute Eos (auto) (0-0.6) 10^3/ul Absolute Basos (auto) (0-0.2) 10^3/ul Absolute Nucleated RBC 10^3/ul Nucleated RBC % INR (Anticoag Therapy) (0.89-1.11) APTT (26.0-36.3) seconds Sodium (133-145) mmol/L Potassium (3.5-5.0) mmol/L Chloride (101-111) mmol/L Carbon Dioxide (22-32) mmol/L Anion Gap (2-11) mmol/L BUN (6-24) mg/dL Creatinine (0.67-1.17) mg/dL Est GFR ( Amer) (>60) Est GFR (Non-Af Amer) (>60) BUN/Creatinine Ratio (8-20) Glucose (70-100) mg/dL Lactic Acid 3.0 H* (0.5-2.0) mmol/L Calcium (8.6-10.3) mg/dL Total Bilirubin (0.2-1.0) mg/dL AST (13-39) U/L ALT (7-52) U/L Alkaline Phosphatase (34-104) U/L C-Reactive Protein (< 5.00) mg/L Total Protein (6.4-8.9) g/dL Albumin (3.2-5.2) g/dL Globulin (2-4) g/dL Albumin/Globulin Ratio (1-3) TSH (0.34-5.60) mcIU/mL Result Diagrams: 08/17/17 04:15 08/17/17 04:15 Lab Statement: Any lab studies that have been ordered have been reviewed, and results considered in the medical decision making process. Course/Dx - Course Course Of Treatment: Allergies noted, medication reviewed and elevated blood pressure noted. RX PREDNISONE. F/U PMD. REFERRED TO DERM. RETURN IF WORSE. - Diagnoses Provider Diagnoses: Rash Discharge - Discharge Plan Condition: Stable Disposition: HOME Prescriptions: predniSONE TAB* [Deltasone TAB*] 40 mg PO DAILY #8 tab Patient Education Materials: Acute Rash (ED) Referrals: Amador Elliott MD [Medical Doctor] - Session Norbert CHAND [Primary Care Provider] - Additional Instructions: FOLLOW UP WITH YOUR PRIMARY CARE DOCTOR AND DERMATOLOGY, DR ELLIOTT. CALL TODAY FOR FOLLOW UP. RETURN TO THE EMERGENCY DEPARTMENT FOR ANY WORSENING OF YOUR CONDITION OR QUESTIONS OR CONCERNS. The documentation as recorded by the Marcia aiken Abhishek accurately reflects the service I personally performed and the decisions made by me, Dev Collins MD.
[2017-08-17 08:02] VITALS: BP 139/56
== END | disposition home or self-care (01) ==
LOC: ED 02:26
DX: R21 Rash and other nonspecific skin eruption (principal); M54.9 Dorsalgia, unspecified
CPT/HCPCS: 36415; 80053; 83605; 84443; 85025; 85610; 85730; 86140; 96374; 99282; J2930

== ENCOUNTER 2018-01-14 13:17 | Inpatient (IN) | payer MEDICARE ==
[2018-01-14 14:12] LABS: ABS Basophils 0.1 10^3/ul (0-0.2); ABS Eosinophils 1.6 10^3/ul (0-0.6); ABS Lymphocytes 1.5 10^3/ul (1.0-4.8); ABS Monocytes 1.9 10^3/ul (0-0.8); ABS Neutrophils 12.8 10^3/ul (1.5-7.7); ABS Nucleated RBC 0 10^3/ul; Eosinophil % 9.1 % (0-6); Hematocrit 43 % (42-52); Hemoglobin 14.2 g/dl (14.0-18.0); Lymphocyte % 8.6 % (25-47); Mean Corpuscular HGB Conc 33 g/dl (31-36); Mean Corpuscular Hemoglobin 30 pg (27-31); Mean Corpuscular Volume 91 fL (80-94); Mean Platelet Volume 7 um3 (7.4-10.4); Nucleated Red Blood Cells % 0.1; Platelet Count 423 10^3/ul (150-450); Red Blood Count 4.68 10^6/ul (4.0-5.4); Red Cell Distribution Width 16 % (10.5-15); White Blood Count 17.9 10^3/ul (3.5-10.8)
[2018-01-14 14:15] LABS: INR 0.99 (0.77-1.02)
--- NOTE | 2018-01-14 14:15 | RAD ---
HISTORY: Shortness of breath COMPARISONS: May 05, 2017 VIEWS: 1: frontal portable view of the chest at 1:50 PM FINDINGS: LINES AND TUBES: None. CARDIOMEDIASTINAL SILHOUETTE: The cardiomediastinal silhouette is normal for portable technique. PLEURA: The costophrenic angles are sharp. No pleural abnormalities are noted. LUNG PARENCHYMA: The lungs are clear. ABDOMEN: The upper abdomen is clear. There is no subphrenic gas. BONES AND SOFT TISSUES: No bone or soft tissue abnormalities are noted. IMPRESSION: NO ACTIVE CARDIOPULMONARY DISEASE.
[2018-01-14 14:25] LABS: EGFR Non-African American 74.6 (>60)
[2018-01-14] MEDS ORDERED: Iodixanol* (CONTRAST) 320 MG/ML 100 ML SDV IV ONE (14:41)
--- NOTE | 2018-01-14 15:17 | RAD ---
HISTORY: Shortness of breath COMPARISONS: November 08, 2015 TECHNIQUE: Multiple contiguous axial CT scans of the chest were obtained after the administration of nonionic intravenous contrast, timed to the pulmonary arterial phase of contrast enhancement.. Coronal and sagittal multiplanar reformations are also submitted for review. FINDINGS: Evaluation limited by suboptimal contrast opacification. Attenuation of the main pulmonary artery is between 200-150 Hounsfield units which is of diagnostic, but borderline quality for the detection of pulmonary embolism. NECK AND THYROID: The lower neck and thyroid are unremarkable. CHEST WALL: There is no lower cervical, axillary, or supraclavicular lymphadenopathy by size criteria. There are subcentimeter short axis axillary lymph nodes bilaterally. HEART AND PERICARDIUM: Coronary and valvular cardiac calcifications are noted. AORTA AND PULMONARY VASCULATURE: There is no pulmonary arterial filling defect to suggest pulmonary embolism. There is no linear filling defect within the aorta to suggest aortic dissection. There is stable mild ectasia of the ascending thoracic aorta. MEDIASTINUM: There is no mediastinal lymphadenopathy by size criteria. CAT: There is no hilar lymphadenopathy by size criteria. AIRWAY AND ESOPHAGUS: The airway is unremarkable, without endobronchial filling defect. The esophagus is grossly normal. LUNG PARENCHYMA: The lungs are clear. PLEURA: No pleural abnormalities are noted. UPPER ABDOMEN: Gallstones are noted. There is fatty infiltration of the liver. BONES AND SOFT TISSUES: Degenerative changes are noted of the spine OTHER: None. IMPRESSION: NO PULMONARY ARTERIAL FILLING DEFECT TO SUGGEST PULMONARY EMBOLISM.
[2018-01-14] MEDS ORDERED: Senna TAB PO PRN (15:58)
[2018-01-14] MEDS ORDERED: Docusate CAP* 100 MG PO PRN (15:58)
[2018-01-14] MEDS ORDERED: Al Hydrox/Mg Hydrox/Simet LIQ* 30 ML UDC PO PRN (15:58)
[2018-01-14] MEDS ORDERED: Ondansetron INJ* 2 MG/ML VIAL IV PRN (15:58)
[2018-01-14] MEDS ORDERED: oxyCODONE/Acetamin 5/325 MG* TAB PO PRN (15:58)
[2018-01-14] MEDS ORDERED: Vancomycin(*) 1,000 MG in NS 0.9% 250 ML* 250 ML IVPB ONE (16:06)
[2018-01-14] MEDS ORDERED: Dextrose 50% Syringe 50 ML* 25 GM/50 ML SYRINGE IV PUSH PRN (16:08)
[2018-01-14] MEDS ORDERED: Albuterol HFA INHALER* 8 gm MDI INH PRN (16:14)
[2018-01-14] MEDS ORDERED: Meclizine TAB* 12.5 MG PO PRN (16:33)
[2018-01-14] MEDS ORDERED: Vancomycin per Pharmacy* NOTE FOLLOW UP SCH (17:00)
[2018-01-14] MEDS ORDERED: Vancomycin 1500 MG IV - x ONCE IVPB ONE ×2 (17:00)
--- NOTE | 2018-01-14 18:16 | ED ---
Erica Cuba Jason, scribed for Francisco Bhatti MD on 01/14/18 at 1429 . Shortness of Breath - HPI Summary HPI Summary: This patient is a 77 year old M presenting to [facility] accompanied by with a chief complaint of SOB since this morning. The patient states that he was SOB, shivering and saw that his O2 Saturation was 88. Additionally, he states he has had a full body rash since several months ago. He has been itching on his skin for several months, and the skin looked like a case of hives and pimples. The patient had seen a health actuary and did not find a direct cause, and the rash was thought to be due to exposure to an outside agent. The patient rates the pain 0/10 in severity. Symptoms aggravated by nothing. Symptoms alleviated by nothing. Patient reports SOB, and chills. - History of Current Complaint Chief Complaint: EDShortnessOfBreath Time Seen by Provider: 01/14/18 13:35 Hx Obtained From: Patient, Family/Care Asst - Onset/Duration: Sudden Onset, Still Present Associated Signs & Symptoms: Chills - Allergy/Home Medications Allergies/Adverse Reactions: Allergies Allergy/AdvReac Type Severity Reaction Status Date / Time horse dander Allergy Difficulty Verified 01/14/18 16:44 Breathing/Wheezing Horse/Equine Containing Allergy Difficulty Verified 01/14/18 16:44 Products Breathing/Wheezing peanut Allergy Difficulty Verified 01/14/18 16:44 Breathing/Wheezing peanut oil Allergy Difficulty Verified 01/14/18 16:44 Breathing/Wheezing Penicillins Allergy Difficulty Verified 01/14/18 16:44 Breathing/Wheezing Home Medications: Home Medications Meclizine TAB* [Antivert 12.5 TAB*] 25 mg PO DAILY 01/14/18 [History Confirmed 01/14/18] diPHENhydraMINE PO* [Benadryl PO 25 MG TAB*] 25 mg PO DAILY PRN 01/14/18 [ History Confirmed 01/14/18] PMH/Surg Hx/FS Hx/Imm Hx Previously Healthy: No Endocrine/Hematology History: Reports: Hx Diabetes Cardiovascular History: Reports: Hx Hypertension Denies: Hx Congestive Heart Failure, Hx Pacemaker/ICD Respiratory History: Reports: Hx Asthma, Hx Chronic Obstructive Pulmonary Disease (COPD), Hx Sleep Apnea - bipap at night GI History: Reports: Hx Gastroesophageal Reflux Disease History: Reports: Other Problems/Disorders - urinary retention & turp Denies: Hx Renal Disease Sensory History: Reports: Hx Contacts or Glasses - for reading Denies: Hx Hearing Aid Opthamlomology History: Reports: Hx Contacts or Glasses - for reading Neurological History: Reports: Other Neuro Impairments/Disorders - le neuropathy Psychiatric History: Denies: Hx Panic Disorder - Surgical History Surgery Procedure, Year, and Place: turp @ [facility] [place] 2012; cataract right eye - Immunization History Date of Tetanus Vaccine: Within 10 years Date of Influenza Vaccine: 2011 Infectious Disease History: No Infectious Disease History: Reports: Hx Clostridium Difficile, Hx of Known/ Suspected MRSA - 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, not active, Hx Shingles - not active Denies: Traveled Outside the [place] in Last 30 Days - Family History Known Family History: Negative: Cardiac Disease, Diabetes Family History: R& n/C - Social History Alcohol Use: None Hx Substance Use: No Substance Use Type: Reports: None Hx Tobacco Use: Yes Smoking Status (MU): Former Smoker Review of Systems Positive: Chills Positive: Shortness Of Breath Positive: Rash - torso and legs and face All Other Systems Reviewed And Are Negative: Yes Physical Exam - Summary Physical Exam Summary: Appearance: The patient is Morbidly obese and in no acute distress and in no acute pain. Skin: Diffuse erythema confluent raised rash over torso and sparsely on legs and face. HEENT: ~The head is normocephalic and atraumatic. The pupils are equal and reactive. The conjunctivae are clear and without drainage. ~Nares are patent and without drainage. Mouth reveals moist mucous membranes and the throat is without erythema and exudate. The external ears are intact. The ear canals are patent and without drainage. The tympanic membranes are intact. Neck: the neck is supple with full range of motion and non-tender. There are no carotid bruits. ~There is no neck vein distension. Respiratory: Chest is non-tender. ~Lungs are clear to auscultation and breath sounds are symmetrical and equal. Cardiovascular: Heart is regular rate and rhythm. ~There is no murmur or rub auscultated. ~~There is no peripheral edema and pulses are symmetrical and equal. Abdomen: The abdomen is soft and non-tender. ~There are normal bowel sounds heard in all four quadrants and there is no organomegaly palpated. Musculoskeletal: There is no back tenderness noted. ~Extremities are non-tender with full range of motion. ~There is good capillary refill. There is no peripheral edema or calf tenderness elicited. Ulcer on his right great toe that is clean and looks non-infected Neurological: Patient is alert and oriented to person, place and time. ~The patient has symmetrical motor strength in all four extremities. ~Cranial nerves are grossly intact. Deep tendon reflexes are symmetrical and equal in all four extremities. Psychiatric: The patient has an appropriate affect and does not exhibit any anxiety or depression. Triage Information Reviewed: Yes Vital Signs On Initial Exam: Initial Vitals Temp Pulse Resp BP Pulse Ox 98.2 F 72 16 129/52 98 01/14/18 13:29 01/14/18 13:29 01/14/18 13:29 01/14/18 13:29 01/14/18 13:29 Vital Signs Reviewed: Yes Diagnostics - Vital Signs Vital Signs Temp Pulse Resp BP Pulse Ox 01/14/18 13:42 90 18 92 01/14/18 13:29 98.2 F 72 16 129/52 98 - Laboratory Lab Results: Lab Results 01/14/18 01/14/18 01/14/18 Range/Units 13:58 13:58 13:58 WBC 17.9 H (3.5-10.8) 10^3/ul RBC 4.68 (4.0-5.4) 10^6/ul Hgb 14.2 (14.0-18.0) g/dl Hct 43 (42-52) % MCV 91 (80-94) fL MCH 30 (27-31) pg MCHC 33 (31-36) g/dl RDW 16 H (10.5-15) % Plt Count 423 (150-450) 10^3/ul MPV 7 L (7.4-10.4) um3 Neut % (Auto) 71.2 (38-83) % Lymph % (Auto) 8.6 L (25-47) % Hubbard % (Auto) 10.5 H (0-7) % Eos % (Auto) 9.1 H (0-6) % Baso % (Auto) 0.6 (0-2) % Absolute Neuts (auto) 12.8 H (1.5-7.7) 10^3/ul Absolute Lymphs (auto) 1.5 (1.0-4.8) 10^3/ul Absolute Monos (auto) 1.9 H (0-0.8) 10^3/ul Absolute Eos (auto) 1.6 H (0-0.6) 10^3/ul Absolute Basos (auto) 0.1 (0-0.2) 10^3/ul Absolute Nucleated RBC 0 10^3/ul Nucleated RBC % 0.1 INR (Anticoag Therapy) 0.99 (0.77-1.02) D-Dimer, Quantitative 717 H (Less Than 230) ng/mL Sodium 138 (133-145) mmol/L Potassium 4.1 (3.5-5.0) mmol/L Chloride 107 (101-111) mmol/L Carbon Dioxide 22 (22-32) mmol/L Anion Gap 9 (2-11) mmol/L BUN 17 (6-24) mg/dL Creatinine 0.98 (0.67-1.17) mg/dL Est GFR ( Amer) 95.9 (>60) Est GFR (Non-Af Amer) 74.6 (>60) BUN/Creatinine Ratio 17.3 (8-20) Glucose 115 H (70-100) mg/dL Lactic Acid (0.5-2.0) mmol/L Calcium 9.5 (8.6-10.3) mg/dL Total Bilirubin 0.60 (0.2-1.0) mg/dL AST 19 (13-39) U/L ALT 16 (7-52) U/L Alkaline Phosphatase 54 (34-104) U/L Troponin I 0.01 (<0.04) ng/mL C-Reactive Protein 25.62 H (< 5.00) mg/L Total Protein 7.3 (6.4-8.9) g/dL Albumin 3.6 (3.2-5.2) g/dL Globulin 3.7 (2-4) g/dL Albumin/Globulin Ratio 1.0 (1-3) 01/14/18 Range/Units 13:58 WBC (3.5-10.8) 10^3/ul RBC (4.0-5.4) 10^6/ul Hgb (14.0-18.0) g/dl Hct (42-52) % MCV (80-94) fL MCH (27-31) pg MCHC (31-36) g/dl RDW (10.5-15) % Plt Count (150-450) 10^3/ul MPV (7.4-10.4) um3 Neut % (Auto) (38-83) % Lymph % (Auto) (25-47) % Hubbard % (Auto) (0-7) % Eos % (Auto) (0-6) % Baso % (Auto) (0-2) % Absolute Neuts (auto) (1.5-7.7) 10^3/ul Absolute Lymphs (auto) (1.0-4.8) 10^3/ul Absolute Monos (auto) (0-0.8) 10^3/ul Absolute Eos (auto) (0-0.6) 10^3/ul Absolute Basos (auto) (0-0.2) 10^3/ul Absolute Nucleated RBC 10^3/ul Nucleated RBC % INR (Anticoag Therapy) (0.77-1.02) D-Dimer, Quantitative (Less Than 230) ng/mL Sodium (133-145) mmol/L Potassium (3.5-5.0) mmol/L Chloride (101-111) mmol/L Carbon Dioxide (22-32) mmol/L Anion Gap (2-11) mmol/L BUN (6-24) mg/dL Creatinine (0.67-1.17) mg/dL Est GFR ( Amer) (>60) Est GFR (Non-Af Amer) (>60) BUN/Creatinine Ratio (8-20) Glucose (70-100) mg/dL Lactic Acid 2.4 H* (0.5-2.0) mmol/L Calcium (8.6-10.3) mg/dL Total Bilirubin (0.2-1.0) mg/dL AST (13-39) U/L ALT (7-52) U/L Alkaline Phosphatase (34-104) U/L Troponin I (<0.04) ng/mL C-Reactive Protein (< 5.00) mg/L Total Protein (6.4-8.9) g/dL Albumin (3.2-5.2) g/dL Globulin (2-4) g/dL Albumin/Globulin Ratio (1-3) Result Diagrams: 01/14/18 13:58 01/14/18 13:58 Lab Statement: Any lab studies that have been ordered have been reviewed, and results considered in the medical decision making process. - Radiology CXR Radiology Interpretation Completed By: Radiologist - CXR reveals, per radiologist, NO ACTIVE CARDIOPULMONARY DISEASE. ED physician has reviewed this radiology report. - CT chest CT Interpretation Completed By: Radiologist - NO PULMONARY ARTERIAL FILLING DEFECT TO SUGGEST PULMONARY EMBOLISM.ED physician has reviewed this radiology report. - EKG 1325 Cardiac Rate: NL EKG Interpretation: indeterminate rhythm with a left axis deviation Course/Dx - Course Course Of Treatment: Mr. Pierce presented with his with the C/O that he couldn't breathe. He was very erythematous diffusely with a confluent raised rash over most of his body. There was no desquamation. He had a leukocytosis of 17 with an elevated ANC. I'm not sure what the etiology is but am concerned for his safety. I have asked the hospitalist to seen him. - Diagnoses Provider Diagnoses: Dyspnea, Rash and nonspecific skin eruption Discharge - Discharge Plan Condition: Stable Disposition: ADMITTED TO [facility] documentation as recorded by the Erica aiken Jason accurately reflects the service I personally performed and the decisions made by me, Francisco Bhatti MD.
[2018-01-14] MEDS: Insulin LISPRO* 1 UNITS UNIT SUBCUT SCH (20:33)
[2018-01-14] MEDS: Heparin VIAL(*) 5000 UNITS/ML VIAL (FIVE THOUSAND) SUBCUT SCH (21:38)
--- NOTE | 2018-01-14 22:57 | HP ---
CC: EUNICE Blackwell * HISTORY AND PHYSICAL: DATE OF ADMISSION: 01/14/18 TIME OF EVALUATION: 1600. PRIMARY CARE PHYSICIAN: EUNICE Blackwell CHIEF COMPLAINT: Shaking and shortness of breath. HISTORY OF PRESENT ILLNESS: This is a 77-year-old male with a past medical history of diabetes, obstructive sleep apnea, has had ongoing issues with persistent pruritic rash who presents to the emergency room with frequent shaking spells. Today, he was having a cold spell. He states he has been getting these off and on for the past few weeks. When he gets the shaking spell , he gets short of breath. His blood pressure goes down to 90/60, oxygen saturation was 88%, and his temperature was low at 96.7. He came into the emergency room for further evaluation. He states he has had ongoing issues with this diffuse rash all over his body, pruritic scalp with redness. The and him think it started about a few months ago. It started off as hives and bumps and a few pimples on his back. He was seen by Dermatology, Dr. Dickersno through [place]. They did a culture, he states it was not cancer and it was not fungal and he has just been taking Benadryl up to 3 pills a day for it. He states he feels that the rash has improved, but still he has significant pruritus, dry skin, and peeling. His states he has also lost appetite. He has lost 50 pounds over the past 3 to 4 months. He denies any nausea, vomiting, diarrhea. No abdominal pain. No urinary symptoms. He states he has back pain that has been ongoing his entire back. No loss of bowel or bladder. Earlier today, he had some chest pressure, which has since resolved. He has not really had a cough or fever. Just as mentioned, a low temperature. In the emergency room, the patient had labs and imaging and was referred to the hospitalist service for further evaluation. PAST MEDICAL HISTORY: 1. History of staph aureus bacteremia in 2016. 2. History of obstructive sleep apnea. 3. Diabetes. 4. BPH. 5. Chronic back pain. 6. Arthritis. 7. Vertigo. 8. Hypertension. 9. Hypothyroidism. 10. Asthma. 11. BPH. 12. Diabetes. 13. Hypertension. 14. History of osteomyelitis. PAST SURGICAL HISTORY: 1. 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 2. History of prostatectomy. MEDICATIONS: 1. Benadryl as needed for itching. 2. Meclizine 25 mg p.o. daily in the morning as needed. 3. Singulair 10 mg p.o. daily. 4. Synthroid 112 mcg p.o. daily. 5. Chlorhexidine wash 15 mL p.o. b.i.d. as needed for tooth pain, has not needed it recently. 6. Flomax 0.4 mg p.o. daily. 7. Metformin 1500 mg p.o. daily. 8. Lisinopril 20 mg p.o. daily. 9. Lasix 40 mg p.o. daily. 10. Albuterol 1 puff inhaled b.i.d. as needed. ALLERGIES: HORSE allergy, PEANUT allergy, PENICILLIN, HORSE HAIR. FAMILY HISTORY: Mother from liver cancer. Father from a AAA. The patient states that he has been screened. SOCIAL HISTORY: The patient is independent of his ADLs. He ambulates with a cane. No history of tobacco, alcohol, or illicit drug use. His healthcare proxy is his , Dede. CODE STATUS: Full code. REVIEW OF SYSTEMS: A 14-point review of systems as mentioned in the HPI, otherwise negative. PHYSICAL EXAMINATION GENERAL: No acute distress, but he does have a resting tremor noted. His is at the bedside. VITAL SIGNS: Temp 98.2, pulse rate 80, respiratory rate is 15, oxygen saturation 99% on room air, and blood pressure 118/78. HEENT: Head is normocephalic. Pupils equal and reactive. Oropharynx, mucous membranes are dry. NECK: Supple. No lymphadenopathy. RESPIRATORY: Diminished breath sounds. No wheezes, rhonchi or rales. CARDIAC: Regular rate and rhythm with soft systolic murmur heard throughout. ABDOMEN: Soft, nontender, nondistended. EXTREMITIES: The patient with no edema, +1 DPs bilateral. DERM: The patient with a confluent erythematous rash mostly over his torso. It extends into his scalp. It spares his face. He has dry scaling scalp and then in his extremities, he has more of urticarial type lesions in his upper and lower extremities. He has prominent erythema in the right great toe with a necrotic wound. Per patient, that is improving. NEUROLOGIC: Alert and oriented x3. No focal neurologic deficits. DIAGNOSTIC STUDIES/LAB DATA: White count 17.9, hemoglobin 14, hematocrit 43, platelets 423. Eosinophils is 1.6. INR is 0.99. D-dimer is 717. Sodium 138, potassium 4.1, chloride 107, bicarb 22, BUN 17, creatinine 0.98, glucose 115, lactic acid 2.4. CRP 25. Urine is negative. RADIOGRAPHIC DATA: Chest CTA: No pulmonary or arterial filling defects to suggest pulmonary embolism. Chest x-ray: No active cardiopulmonary disease. EKG: Appears normal sinus with PACs, but a loss of artifact, so we will repeat this EKG. ASSESSMENT AND PLAN: This is a 77-year-old male with a past medical history of diabetes, history of bacteremia, hypertension, hyperlipidemia, who presents to the emergency room with shaking cold spells in the setting of a chronic rash. 1. Shaking cold spells with hypothermia. Assessment: Certainly concerning for systemic inflammatory response syndrome. He does have an elevated white count. He does have a history of Staph aureus bacteremia. It is possible that this rash is erysipelas cellulitis contributing to his presentation. There is also concern for possibility of osteomyelitis with his toe; although per patient, it is healing. Plan: We will order blood cultures, start him on vancomycin, and then follow up accordingly, repeat his labs. 2. Rash. Assessment. This appears to be chronic, but not improving and is quite significant with pruritus in appearance. He has been seen by Dermatology. He has been taking a lot of Benadryl, which may be contributing to part of his anticholinergic appearance of erythema, dry mouth, and per , he has had some episodes of disorientation. Plan: We will discontinue the Benadryl, order Atarax as needed. I suspect this is a drug reaction to one of his medications. I am going to hold his Lasix , metformin, and start from there. 3. Shortness of breath. Assessment: As above, I suspect this is related to possibility of rigors. His CTA was unremarkable. He does have some chest pressure. We will continue to trend his troponins. We will keep him on the monitor and repeat his EKG in the setting of an abnormal one initially with some artifact. CHRONIC MEDICAL PROBLEMS: 1. Vertigo. Continue his meclizine as needed. 2. Asthma. Continue his Singulair and albuterol as needed. 3. Hypothyroidism. Continue his Synthroid. 4. BPH. Continue his Flomax. 5. Diabetes. Holding metformin. We will order lispro. 6. Hypertension. Continue lisinopril, hold Lasix. 7. FEN. Placed the patient on a diabetic diet. 8. DVT prophylaxis. The patient scores moderate risk. We will place on heparin subcu t.i.d. 9. Code status. The patient is full code. PATIENT TIME: Greater than 60 minutes spent doing the history and physical, more than half time spent in direct [id number] contact. [id number]/CPS #: [id number] CHAZ
[2018-01-15] MEDS: hydrOXYzine HCL TAB* 25 MG PO PRN (00:37)
[2018-01-15] MEDS: Acetaminophen TAB* 325 MG PO PRN ×2 (00:37→21:40)
[2018-01-15] MEDS: CMCS:Melatonin (NF) 3 MG TAB PO PRN ×2 (00:39→21:40)
[2018-01-15] MEDS: Vancomycin(*) 1,000 MG in NS 0.9% 250 ML* 250 ML IVPB SCH ×3 (00:47→17:33)
[2018-01-15] MEDS: Heparin VIAL(*) 5000 UNITS/ML VIAL (FIVE THOUSAND) SUBCUT SCH ×3 (05:40→21:41)
[2018-01-15 06:11] LABS: Hematocrit 41 % (42-52); Hemoglobin 13.6 g/dl (14.0-18.0); Mean Corpuscular HGB Conc 33 g/dl (31-36); Mean Corpuscular Hemoglobin 30 pg (27-31); Mean Corpuscular Volume 92 fL (80-94); Mean Platelet Volume 7 um3 (7.4-10.4); Platelet Count 419 10^3/ul (150-450); Red Blood Count 4.47 10^6/ul (4.0-5.4); Red Cell Distribution Width 16 % (10.5-15); White Blood Count 13.7 10^3/ul (3.5-10.8)
[2018-01-15 06:13] LABS: ABS Basophils 0.1 10^3/ul (0-0.2); ABS Eosinophils 2.4 10^3/ul (0-0.6); ABS Lymphocytes 1.5 10^3/ul (1.0-4.8); ABS Monocytes 1.5 10^3/ul (0-0.8); ABS Neutrophils 8.2 10^3/ul (1.5-7.7); ABS Nucleated RBC 0 10^3/ul; Eosinophil % 17.6 % (0-6); Lymphocyte % 10.8 % (25-47); Nucleated Red Blood Cells % 0.1
[2018-01-15 06:26] LABS: EGFR Non-African American 77.3 (>60)
[2018-01-15] MEDS ORDERED: NS 0.9% 250 ML* 250 ML ONE (08:33)
[2018-01-15] MEDS: Insulin LISPRO* 1 UNITS UNIT SUBCUT SCH ×3 (08:37→17:33)
[2018-01-15] MEDS: Tamsulosin CAP* 0.4 MG PO SCH (08:38)
[2018-01-15] MEDS ORDERED: Lisinopril TAB* 10 MG PO SCH (09:00)
[2018-01-15] MEDS: Levothyroxine TAB* 112 MCG TAB PO SCH (09:51)
[2018-01-15] MEDS: Montelukast Sodium TAB* 5 MG PO SCH ×2 (09:51→14:04)
--- NOTE | 2018-01-15 11:44 | ECHO ---
Patient: TAVO MCKEON [facility] Rec#: [id number] : 1940 Date: 01/15/2018 Age: 77y Height: 180.34 cm / 71.0 in Weight: 136.08 kg / 299.9 lbs Sex: M BSA: 2.51 Room#: 440 Admit Date#: 01/14/2018 Type: Inpatient Referring: Madelyn Hale MD Reading: Benjamín La MD Right Of Way Man: Mague Terry,DEVINCS,RDMS CC: TavoEUNICE Downs Transthoracic Echocardiogram Indication: SOB BP: 145/66 HR: 71 Rhythm: NSR with PVCs Findings History: HTN, HLD, DM, ANTONIETA, COPD, bacteremia Technical Comments: The study quality is good. Left Ventricle: The left ventricular chamber size is mildly dilated. Mild to moderate concentric left ventricular hypertrophy is observed. Global left ventricular wall motion and contractility are within normal limits. There is normal left ventricular systolic function. The estimated ejection fraction is 55-60%. Abnormal left ventricular diastolic function is observed. Left Atrium: The left atrium is mild to moderately dilated. Right Ventricle: The right ventricular chamber size and systolic function are within normal limits. Right Atrium: The right atrium is mild to moderately dilated. Aortic Valve: The aortic valve is trileaflet. The aortic valve leaflets are mildly thickened. There is no evidence of aortic regurgitation. There is no evidence of aortic stenosis. Mitral Valve: There is mitral annular calcification. The mitral valve leaflets are mildly thickened. There is no evidence of mitral regurgitation. There is no evidence of mitral stenosis. Tricuspid Valve: The tricuspid valve leaflets are normal. There is trace tricuspid regurgitation. Unable to estimate the right ventricular systolic pressure. Pulmonic Valve: The pulmonic valve appears normal. There is a trace pulmonic regurgitation. Pericardium: There is no significant pericardial effusion. Aorta: There is mild dilatation of the ascending aorta. There is mild dilatation of the aortic arch. There is mild dilatation of the aortic root. Pulmonary Artery: The main pulmonary artery appears normal. Venous: The inferior vena cava appears normal. There is a greater than 50% respiratory change in the inferior vena cava dimension. Summary: There are no significant changes when compared to the previous study done on 05/07/17 Conclusions Global left ventricular wall motion and contractility are within normal limits. There is normal left ventricular systolic function. The estimated ejection fraction is 55-60%. The right ventricular chamber size and systolic function are within normal limits. There is no evidence of aortic stenosis. There is no evidence of mitral regurgitation. There is trace tricuspid regurgitation. Unable to estimate the right ventricular systolic pressure. There is no significant pericardial effusion. There are no significant changes when compared to the previous study done on 05/07/17 Image quality can not rule out valve vegetations If continued concern for endocarditis then ANTHONY might be helpful Measurements Name Value Normal Range RVIDd (AP) 2D 3.2 cm (0.9 - 2.6) RVDdMajor (2D) 3.7 cm (2.2 - 4.4) RAd ISD 4CH 6.3 cm (3.4 - 4.9) RA (A4C)W 4.9 cm (2.9 - 4.6) IVSd (2D) 1.4 cm (0.6 - 1) LVPWd (2D) 1.4 cm (0.6 - 1) LVIDd (2D) 5.5 cm (3.6 - 5.4) LVIDs (2D) 3.6 cm - LV FS (2D) 34 % (25 - 45) Aortic Annulus 2.5 cm (1.4 - 2.6) Ao root diameter (2D) 3.7 cm (2.1 - 3.5) Ascending Ao 4.1 cm (2.1 - 3.4) Aortic arch 3.6 cm (1.8 - 3.4) LA dimension (AP) 2D 3.6 cm (2.3 - 3.8) LAd ISD 4CH 6.8 cm (2.9 - 5.3) LA ISD 4CH W 5.3 cm (2.5 - 4.5) Name Value Normal Range LA ESV SP 4CH (A/L) 128.56 ml - LA ESV SP 2CH (A/L) 67.51 ml - LA ESV BP (A/L) 102.4 ml - LA ESV BP (A/L) index 41 ml/m2 - LA ESV SP 4CH (MOD) 116.53 ml - LA ESV SP 2CH (MOD) 65.67 ml - Name Value Normal Range MV E-wave Vmax 0.9 m/sec - MV deceleration time 202 msec - MV A-wave Vmax 0.6 m/sec - MV E:A ratio 1.5 ratio - LV septal e' Vmax 0.09 m/sec - LV lateral e' Vmax 0.08 m/sec - LV E:e' septal ratio 10 ratio - LV E:e' lateral ratio 11 ratio - Name Value Normal Range AV Vmax 1.7 m/sec - AV VTI 37 cm - AV peak gradient 10 mmHg - AV mean gradient 5.6 mmHg - LVOT Vmax 1.2 m/sec - LVOT VTI 27.1 cm - LVOT peak gradient 6 mmHg - LVOT mean gradient 3.9 mmHg - ISAIAS Vmax 0.5 m/sec - Name Value Normal Range RAP 8 mmHg - IVC diameter 1.8 cm - Name Value Normal Range PV Vmax 0.6 m/sec - PV peak gradient 1.4 mmHg -
--- NOTE | 2018-01-15 14:13 | CONS ---
CONSULTATION REPORT: DATE OF CONSULT: 01/15/18 REQUESTING PHYSICIAN: Dr. Hale. CONSULTING SERVICE: Infectious Disease. REASON FOR CONSULT: Elevated C-reactive protein and rash. IMPRESSION: 1. Six months of rash, now with chills and mildly elevated C-reactive protein. He has erythroderma. He had a biopsy as an outpatient which apparently was unrevealing. The differential includes a drug reaction which I think is most likely, psoriasis, cutaneous lymphoma which apparently was not seen by biopsy. 2. 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 3. Diabetes with ulceration, no associated cellulitis. 4. Morbid obesity. RECOMMENDATIONS: 1. Agree with removal of his medications and follow his rash symptoms. Consider biopsy if nothing is improving. 2. Vancomycin while awaiting his blood cultures; if they are negative, they can stop. 3. Wound clinic referral for the great toe wound which right now does not appear to be grossly infected. 4. Check urinalysis and urine culture. HISTORY OF PRESENT ILLNESS: This 77-year-old male with obesity and diabetes, admitted with a rash and chills. He has had the rash for 6 months, involves his whole body. It is itchy and painful. There are some more splotchy areas on his legs, otherwise it is pretty well distributed evenly he thinks. Nothing seems to help, but he has been taking a lot of Benadryl without much improvement. He had seen Dermatology as an outpatient, a biopsy he said showed no cancer. He is not sure if there are any new medications any time before the rash started. He has had a couple of days of cold sweats with a temperature that he felt was low in the 96 range, so he came to the hospital yesterday. He also had chest pain, he was admitted to telemetry unit, had serial troponins which are negative, a C-reactive protein of 25, lactic acid 2.5, hemoglobin A1c of 6.9. He had a low-grade fever of 37.8 degrees on admission, nothing since then. He was started on vancomycin. Blood cultures were sent as well as a chest x-ray which showed no active disease. A CT of the chest showed no pulmonary embolus. He has had no cough, abdominal pain, diarrhea, dysuria, urinary frequency. No headaches. His right great toe wound has been present for a couple of months. He is not exactly sure what is going on, whether he has not had it attended to. PAST MEDICAL HISTORY: 1. Diabetes with peripheral neuropathy. 2. Morbid obesity. 3. Obstructive sleep apnea. 4. Benign prostatic hypertrophy. 5. Chronic back pain. 6. Arthritis. 7. Vertigo. 8. Hypertension. 9. Hypothyroidism. 10. Asthma. 11. Osteomyelitis, right third toe, status post amputation. 12. Status post prostatectomy. MEDICATIONS: 1. Tylenol. 2. Albuterol. 3. Dextrose. 4. Heparin subcutaneous injection. 5. Hydroxyzine as needed. 6. Insulin lispro. 7. Levothyroxine. 8. Meclizine. 9. Melatonin. 10. Singulair. 11. Zofran. 12. Tamsulosin. 13. Vancomycin 1 g every 8 hours. ALLERGIES: PENICILLIN, HORSE HAIR, PEANUTS. FAMILY HISTORY: Mother from liver cancer, father from AAA rupture. SOCIAL HISTORY: Nonsmoker. No alcohol use. Lives with his outside of [place]. REVIEW OF SYSTEMS: A 14-point review of systems was negative except as noted above. PHYSICAL EXAM: Vital Signs: Temperature 37, heart rate 50, respiratory rate 16 , blood pressure 145/66, oxygen saturation 100% on room air. In general, he is awake, not in distress. Neurologic: He is oriented x3, follows all commands. Sensation is decreased to light touch in both feet. HEENT: There is no conjunctival hemorrhage. The teeth is in various states of disrepair. Neck: Supple without mass. Lymph Nodes: There is no cervical, supraclavicular, inguinal, axillary or epitrochlear lymphadenopathy. Heart: Regular rate and rhythm without murmurs, rubs or gallops. Lungs: Clear to auscultation bilaterally. Abdomen: Soft, nontender, nondistended. There are bowel sounds present. Skin: There is diffuse erythema with some superficial scaling. The erythema is blanching. It is more patchy on his legs and spares the face. Musculoskeletal: There is no spine tenderness to palpation of the right great toe. There is large callus medial elongated 3 mm wound with some bleeding. DIAGNOSTIC STUDIES/LAB DATA: Creatinine 0.9. White blood count 13, down from 18; hemoglobin 13; platelets 419,000. Please see impression and recommendations outlined above. Thank you for asking me to see Mr. Pierce in consultation. [id number]/[facility] #: [id number] CHAZ
--- NOTE | 2018-01-15 14:51 | PN ---
Subjective Date of Service: 01/15/18 Interval History: pt's rash had been going on x 6 months or so, Side Laster Staple from [place] "brushings", pt is unsure if bx was done. Had been treated for eczema In the past 2 weeks intermittent chills and temp at 95 noted at home. Objective Active Medications: Acetaminophen (Tylenol Tab*) 650 mg PO Q4H PRN PRN Reason: FEVER/PAIN Last Admin: 01/15/18 00:37 Dose: 650 mg Al Hydrox/Mg Hydrox/Simethicone (Maalox Plus*) 30 ml PO Q6H PRN PRN Reason: INDIGESTION Albuterol (Ventolin Hfa Inhaler*) 1 puff INH BID PRN PRN Reason: SHORTNESS OF BREATH Dextrose (D50w Syringe 50 Ml*) 12.5 gm IV PUSH .FOR FS < 60 - SS PRN PRN Reason: FS < 60 Docusate Sodium (Colace Cap*) 100 mg PO BID PRN PRN Reason: CONSTIPATION Heparin Sodium (Porcine) (Heparin Vial(*)) 5,000 units SUBCUT Q8HR [facility] Last Admin: 01/15/18 14:03 Dose: 5,000 units Hydroxyzine HCl (Atarax Tab*) 25 mg PO Q6H PRN PRN Reason: itching Last Admin: 01/15/18 00:37 Dose: 25 mg Vancomycin HCl 1,000 mg/ (Sodium Chloride) 250 mls @ 166.667 mls/hr IVPB Q8H [facility] Last Admin: 01/15/18 08:43 Dose: 166.667 mls/hr Insulin Human Lispro (Humalog*) 0 units SUBCUT AC [facility] PRN Reason: Protocol Last Admin: 01/15/18 12:27 Dose: 7 units Levothyroxine Sodium (Synthroid Tab*) 112 mcg PO DAILY [facility] Last Admin: 01/15/18 09:51 Dose: 112 mcg Meclizine HCl (Antivert Tab*) 25 mg PO DAILY PRN PRN Reason: VERTIGO Melatonin (Melatonin (Nf)) 3 mg PO BEDTIME PRN; Protocol PRN Reason: Sleep Last Admin: 01/15/18 00:39 Dose: 3 mg Montelukast Sodium (Singulair Tab*) 10 mg PO DAILY [facility] Ondansetron HCl (Zofran Inj*) 4 mg IV Q4H PRN PRN Reason: NAUSEA/VOMITING Oxycodone/Acetaminophen (Percocet 5/325 Tab*) 1 tab PO Q4H PRN PRN Reason: Pain Pharmacy Consult (Vancomycin Per Pharmacy*) 1 note FOLLOW UP .VANC PER PHARMACY [facility] Pharmacy Profile Note (Vancomycin Trough Check) 1 note FOLLOW UP .ENTER TIME ONE Stop: 01/16/18 08:31 Senna (Senokot Tab*) 1 tab PO BID PRN PRN Reason: CONSTIPATION Tamsulosin HCl (Flomax Cap*) 0.4 mg PO DAILY [facility] Last Admin: 01/15/18 08:38 Dose: 0.4 mg Vital Signs - 8 hr 01/15/18 01/15/18 01/15/18 07:31 08:00 11:25 Temperature 97.8 F 98.3 F Pulse Rate 35 63 Respiratory 16 18 16 Rate Blood Pressure 145/66 (mmHg) O2 Sat by Pulse 100 100 Oximetry 01/15/18 12:54 Temperature Pulse Rate Respiratory Rate Blood Pressure 126/54 (mmHg) O2 Sat by Pulse Oximetry Oxygen Devices in Use Now: None Appearance: 77 yo M in nAD, AAOx3 Eyes: No Scleral Icterus, PERRLA Ears/Nose/Mouth/Throat: NL Teeth, Lips, Gums, Mucous Membranes Moist Neck: NL Appearance and Movements; NL JVP, Trachea Midline Respiratory: Symmetrical Chest Expansion and Respiratory Effort, Clear to Auscultation Cardiovascular: NL Sounds; No Murmurs; No JVD, RRR Abdominal: NL Sounds; No Tenderness; No Distention, No Hepatosplenomegaly Lymphatic: No Cervical Adenopathy Extremities: No Edema, No Clubbing, Cyanosis, - - s/p remote R 3rd toe amputation Skin: - - confluent blanchable dry rash/erythrema on b/l UE's back and torso, patchy erythrema on b/l LE's. R great toe with ulceration on the tip at 2 cm in diam, not infected Neurological: Alert and Oriented x 3, NL Muscle Strength and Tone Result Diagrams: 01/15/18 05:59 01/15/18 05:59 Additional Lab and Data: Lab Results 01/14/18 01/14/18 01/14/18 Range/Units 13:58 13:58 13:58 WBC 17.9 H (3.5-10.8) 10^3/ul RBC 4.68 (4.0-5.4) 10^6/ul Hgb 14.2 (14.0-18.0) g/dl Hct 43 (42-52) % MCV 91 (80-94) fL MCH 30 (27-31) pg MCHC 33 (31-36) g/dl RDW 16 H (10.5-15) % Plt Count 423 (150-450) 10^3/ul MPV 7 L (7.4-10.4) um3 Neut % (Auto) 71.2 (38-83) % Lymph % (Auto) 8.6 L (25-47) % [place] % (Auto) 10.5 H (0-7) % Eos % (Auto) 9.1 H (0-6) % Baso % (Auto) 0.6 (0-2) % Absolute Neuts (auto) 12.8 H (1.5-7.7) 10^3/ul Absolute Lymphs (auto) 1.5 (1.0-4.8) 10^3/ul Absolute Monos (auto) 1.9 H (0-0.8) 10^3/ul Absolute Eos (auto) 1.6 H (0-0.6) 10^3/ul Absolute Basos (auto) 0.1 (0-0.2) 10^3/ul Absolute Nucleated RBC 0 10^3/ul Nucleated RBC % 0.1 INR (Anticoag Therapy) 0.99 (0.77-1.02) D-Dimer, Quantitative 717 H (Less Than 230) ng/mL Sodium 138 (133-145) mmol/L Potassium 4.1 (3.5-5.0) mmol/L Chloride 107 (101-111) mmol/L Carbon Dioxide 22 (22-32) mmol/L Anion Gap 9 (2-11) mmol/L BUN 17 (6-24) mg/dL Creatinine 0.98 (0.67-1.17) mg/dL Est GFR ( Amer) 95.9 (>60) Est GFR (Non-Af Amer) 74.6 (>60) BUN/Creatinine Ratio 17.3 (8-20) Glucose 115 H (70-100) mg/dL Lactic Acid (0.5-2.0) mmol/L Calcium 9.5 (8.6-10.3) mg/dL Total Bilirubin 0.60 (0.2-1.0) mg/dL AST 19 (13-39) U/L ALT 16 (7-52) U/L Alkaline Phosphatase 54 (34-104) U/L Troponin I 0.01 (<0.04) ng/mL C-Reactive Protein 25.62 H (< 5.00) mg/L Total Protein 7.3 (6.4-8.9) g/dL Albumin 3.6 (3.2-5.2) g/dL Globulin 3.7 (2-4) g/dL Albumin/Globulin Ratio 1.0 (1-3) 01/14/18 Range/Units 13:58 WBC (3.5-10.8) 10^3/ul RBC (4.0-5.4) 10^6/ul Hgb (14.0-18.0) g/dl Hct (42-52) % MCV (80-94) fL MCH (27-31) pg MCHC (31-36) g/dl RDW (10.5-15) % Plt Count (150-450) 10^3/ul MPV (7.4-10.4) um3 Neut % (Auto) (38-83) % Lymph % (Auto) (25-47) % [place] % (Auto) (0-7) % Eos % (Auto) (0-6) % Baso % (Auto) (0-2) % Absolute Neuts (auto) (1.5-7.7) 10^3/ul Absolute Lymphs (auto) (1.0-4.8) 10^3/ul Absolute Monos (auto) (0-0.8) 10^3/ul Absolute Eos (auto) (0-0.6) 10^3/ul Absolute Basos (auto) (0-0.2) 10^3/ul Absolute Nucleated RBC 10^3/ul Nucleated RBC % INR (Anticoag Therapy) (0.77-1.02) D-Dimer, Quantitative (Less Than 230) ng/mL Sodium (133-145) mmol/L Potassium (3.5-5.0) mmol/L Chloride (101-111) mmol/L Carbon Dioxide (22-32) mmol/L Anion Gap (2-11) mmol/L BUN (6-24) mg/dL Creatinine (0.67-1.17) mg/dL Est GFR ( Amer) (>60) Est GFR (Non-Af Amer) (>60) BUN/Creatinine Ratio (8-20) Glucose (70-100) mg/dL Lactic Acid 2.4 H* (0.5-2.0) mmol/L Calcium (8.6-10.3) mg/dL Total Bilirubin (0.2-1.0) mg/dL AST (13-39) U/L ALT (7-52) U/L Alkaline Phosphatase (34-104) U/L Troponin I (<0.04) ng/mL C-Reactive Protein (< 5.00) mg/L Total Protein (6.4-8.9) g/dL Albumin (3.2-5.2) g/dL Globulin (2-4) g/dL Albumin/Globulin Ratio (1-3) Microbiology and Other Data: Microbiology 01/14/18 19:53 Nasal Screen MRSA (PCR)([facility]) - Final Nasal Mrsa Detected Assess/Plan/Problems-Billing Assessment: 77 yo M with h/o prostate ca (prostatectomy), hypothyroidism, DM2, HTN, MSSA bacteremia x 2 in 2016 secondary to R 3rd toe oste(s/p amputation) presents with hypothermia documented at home, chills and rash (x6 mos) - Patient Problems (1) Rash Comment: Had "brushings" by a fitting room checker from [place]-requested medical records. Appears to be eczema like but aundrea to the duration will ask surgery for bx if possible. appreciate 's consult-cont Vancomycin till blood cx neg. (2) Toe ulcer Comment: appears not infected wound care consulted (3) BPH (benign prostatic hypertrophy) Comment: cont Flomax (4) DM type 2 (diabetes mellitus, type 2) Comment: Cont SS Humalog coverage (5) HTN (hypertension) Comment: controlled cont lisinopril , Lasix (6) Hypothyroidism Comment: Cont current levothyroxine dose (7) DVT prophylaxis Comment: heparin sc Status and Disposition: inpatient
[2018-01-16] MEDS: Vancomycin(*) 1,000 MG in NS 0.9% 250 ML* 250 ML IVPB SCH (00:43)
[2018-01-16] MEDS: Heparin VIAL(*) 5000 UNITS/ML VIAL (FIVE THOUSAND) SUBCUT SCH ×3 (05:44→20:32)
[2018-01-16 07:03] LABS: Hematocrit 41 % (42-52); Hemoglobin 13.4 g/dl (14.0-18.0); Mean Corpuscular HGB Conc 33 g/dl (31-36); Mean Corpuscular Hemoglobin 30 pg (27-31); Mean Corpuscular Volume 92 fL (80-94); Mean Platelet Volume 7 um3 (7.4-10.4); Platelet Count 404 10^3/ul (150-450); Red Blood Count 4.45 10^6/ul (4.0-5.4); Red Cell Distribution Width 15 % (10.5-15); White Blood Count 14.5 10^3/ul (3.5-10.8)
[2018-01-16 07:23] LABS: EGFR Non-African American 72.8 (>60)
[2018-01-16] MEDS ORDERED: Morphine INJ* 2 MG/ML 1 ML CARPUJECT IV PRN ×2 (08:05→08:08)
[2018-01-16] MEDS ORDERED: Vancomycin Trough Check NOTE FOLLOW UP ONE (08:30)
[2018-01-16] MEDS ORDERED: Al Hydrox/Mg Hydrox/Simet LIQ* 30 ML UDC PO ONE (08:36)
--- NOTE | 2018-01-16 08:41 | PN ---
Subjective Date of Service: 01/16/18 Interval History: pt developed CP, substernal after awakening, no SOB, diaphoresis, but actually feeling "cold". Pain radiating to the back of the neck, associated with some indigestion but not nausea, currently at 4/10, similar to previous episodes in the past 2 weeks Objective Active Medications: Acetaminophen (Tylenol Tab*) 650 mg PO Q4H PRN PRN Reason: FEVER/PAIN Last Admin: 01/15/18 21:40 Dose: 650 mg Al Hydrox/Mg Hydrox/Simethicone (Maalox Plus*) 30 ml PO Q6H PRN PRN Reason: INDIGESTION Albuterol (Ventolin Hfa Inhaler*) 1 puff INH BID PRN PRN Reason: SHORTNESS OF BREATH Dextrose (D50w Syringe 50 Ml*) 12.5 gm IV PUSH .FOR FS < 60 - SS PRN PRN Reason: FS < 60 Docusate Sodium (Colace Cap*) 100 mg PO BID PRN PRN Reason: CONSTIPATION Heparin Sodium (Porcine) (Heparin Vial(*)) 5,000 units SUBCUT Q8HR [facility] Last Admin: 01/16/18 05:44 Dose: 5,000 units Hydroxyzine HCl (Atarax Tab*) 25 mg PO Q6H PRN PRN Reason: itching Last Admin: 01/15/18 00:37 Dose: 25 mg Vancomycin HCl 1,000 mg/ (Sodium Chloride) 250 mls @ 166.667 mls/hr IVPB Q8H [facility] Last Admin: 01/16/18 00:43 Dose: 166.667 mls/hr Insulin Human Lispro (Humalog*) 0 units SUBCUT AC [facility] PRN Reason: Protocol Last Admin: 01/15/18 17:33 Dose: 7 units Levothyroxine Sodium (Synthroid Tab*) 112 mcg PO DAILY [facility] Last Admin: 01/15/18 09:51 Dose: 112 mcg Meclizine HCl (Antivert Tab*) 25 mg PO DAILY PRN PRN Reason: VERTIGO Melatonin (Melatonin (Nf)) 3 mg PO BEDTIME PRN; Protocol PRN Reason: Sleep Last Admin: 01/15/18 21:40 Dose: 3 mg Montelukast Sodium (Singulair Tab*) 10 mg PO DAILY [facility] Morphine Sulfate (Morphine Inj (Syringe)*) 2 mg IV Q4H PRN PRN Reason: PAIN Ondansetron HCl (Zofran Inj*) 4 mg IV Q4H PRN PRN Reason: NAUSEA/VOMITING Oxycodone/Acetaminophen (Percocet 5/325 Tab*) 1 tab PO Q4H PRN PRN Reason: Pain Pharmacy Consult (Vancomycin Per Pharmacy*) 1 note FOLLOW UP .VANC PER [facility]Y [facility] Senna (Senokot Tab*) 1 tab PO BID PRN PRN Reason: CONSTIPATION Tamsulosin HCl (Flomax Cap*) 0.4 mg PO DAILY [facility] Last Admin: 01/15/18 08:38 Dose: 0.4 mg Vital Signs - 8 hr 01/16/18 04:00 Temperature 98.7 F Pulse Rate 74 Respiratory 20 Rate Blood Pressure 137/56 (mmHg) O2 Sat by Pulse 99 Oximetry Oxygen Devices in Use Now: None, BiPAP Appearance: 77 yo M in NAD, AAOx3 Eyes: No Scleral Icterus, PERRLA Ears/Nose/Mouth/Throat: NL Teeth, Lips, Gums, Mucous Membranes Moist Neck: NL Appearance and Movements; NL JVP, Trachea Midline Respiratory: Symmetrical Chest Expansion and Respiratory Effort, Clear to Auscultation Cardiovascular: NL Sounds; No Murmurs; No JVD, RRR Abdominal: NL Sounds; No Tenderness; No Distention Lymphatic: No Cervical Adenopathy Extremities: No Clubbing, Cyanosis, - - trace pedal eedema b/l Skin: No Nodules or Sclerosis, - - generalized eczema like rash all over the body-unchanged from prior. R great toe ulcer at 2 cm -unchanged Neurological: Alert and Oriented x 3, NL Muscle Strength and Tone Result Diagrams: 01/16/18 06:51 01/16/18 06:51 Additional Lab and Data: Lab Results 01/14/18 01/14/18 01/14/18 Range/Units 13:58 13:58 13:58 WBC 17.9 H (3.5-10.8) 10^3/ul RBC 4.68 (4.0-5.4) 10^6/ul Hgb 14.2 (14.0-18.0) g/dl Hct 43 (42-52) % MCV 91 (80-94) fL MCH 30 (27-31) pg MCHC 33 (31-36) g/dl RDW 16 H (10.5-15) % Plt Count 423 (150-450) 10^3/ul MPV 7 L (7.4-10.4) um3 Neut % (Auto) 71.2 (38-83) % Lymph % (Auto) 8.6 L (25-47) % [place] % (Auto) 10.5 H (0-7) % Eos % (Auto) 9.1 H (0-6) % Baso % (Auto) 0.6 (0-2) % Absolute Neuts (auto) 12.8 H (1.5-7.7) 10^3/ul Absolute Lymphs (auto) 1.5 (1.0-4.8) 10^3/ul Absolute Monos (auto) 1.9 H (0-0.8) 10^3/ul Absolute Eos (auto) 1.6 H (0-0.6) 10^3/ul Absolute Basos (auto) 0.1 (0-0.2) 10^3/ul Absolute Nucleated RBC 0 10^3/ul Nucleated RBC % 0.1 INR (Anticoag Therapy) 0.99 (0.77-1.02) D-Dimer, Quantitative 717 H (Less Than 230) ng/mL Sodium 138 (133-145) mmol/L Potassium 4.1 (3.5-5.0) mmol/L Chloride 107 (101-111) mmol/L Carbon Dioxide 22 (22-32) mmol/L Anion Gap 9 (2-11) mmol/L BUN 17 (6-24) mg/dL Creatinine 0.98 (0.67-1.17) mg/dL Est GFR ( Amer) 95.9 (>60) Est GFR (Non-Af Amer) 74.6 (>60) BUN/Creatinine Ratio 17.3 (8-20) Glucose 115 H (70-100) mg/dL Lactic Acid (0.5-2.0) mmol/L Calcium 9.5 (8.6-10.3) mg/dL Total Bilirubin 0.60 (0.2-1.0) mg/dL AST 19 (13-39) U/L ALT 16 (7-52) U/L Alkaline Phosphatase 54 (34-104) U/L Troponin I 0.01 (<0.04) ng/mL C-Reactive Protein 25.62 H (< 5.00) mg/L Total Protein 7.3 (6.4-8.9) g/dL Albumin 3.6 (3.2-5.2) g/dL Globulin 3.7 (2-4) g/dL Albumin/Globulin Ratio 1.0 (1-3) /09/23 Range/Units 13:58 WBC (3.5-10.8) 10^3/ul RBC (4.0-5.4) 10^6/ul Hgb (14.0-18.0) g/dl Hct (42-52) % MCV (80-94) fL MCH (27-31) pg MCHC (31-36) g/dl RDW (10.5-15) % Plt Count (150-450) 10^3/ul MPV (7.4-10.4) um3 Neut % (Auto) (38-83) % Lymph % (Auto) (25-47) % [place] % (Auto) (0-7) % Eos % (Auto) (0-6) % Baso % (Auto) (0-2) % Absolute Neuts (auto) (1.5-7.7) 10^3/ul Absolute Lymphs (auto) (1.0-4.8) 10^3/ul Absolute Monos (auto) (0-0.8) 10^3/ul Absolute Eos (auto) (0-0.6) 10^3/ul Absolute Basos (auto) (0-0.2) 10^3/ul Absolute Nucleated RBC 10^3/ul Nucleated RBC % INR (Anticoag Therapy) (0.77-1.02) D-Dimer, Quantitative (Less Than 230) ng/mL Sodium (133-145) mmol/L Potassium (3.5-5.0) mmol/L Chloride (101-111) mmol/L Carbon Dioxide (22-32) mmol/L Anion Gap (2-11) mmol/L BUN (6-24) mg/dL Creatinine (0.67-1.17) mg/dL Est GFR ( Amer) (>60) Est GFR (Non-Af Amer) (>60) BUN/Creatinine Ratio (8-20) Glucose (70-100) mg/dL Lactic Acid 2.4 H* (0.5-2.0) mmol/L Calcium (8.6-10.3) mg/dL Total Bilirubin (0.2-1.0) mg/dL AST (13-39) U/L ALT (7-52) U/L Alkaline Phosphatase (34-104) U/L Troponin I (<0.04) ng/mL C-Reactive Protein (< 5.00) mg/L Total Protein (6.4-8.9) g/dL Albumin (3.2-5.2) g/dL Globulin (2-4) g/dL Albumin/Globulin Ratio (1-3) Microbiology and Other Data: Microbiology 01/14/18 19:53 Nasal Screen MRSA (PCR)([facility]) - Final Nasal Mrsa Detected Assess/Plan/Problems-Billing Assessment: 77 yo M with h/o prostate ca (prostatectomy), hypothyroidism, DM2, HTN, MSSA bacteremia x 2 in 2016 secondary to R 3rd toe osteo(s/p amputation) presents with hypothermia documented at home, chills and rash (x6 mos) - Patient Problems (1) Chest pain Comment: EKG with a lot of motion artifact, not in A. fib. Placed pt NPO, plan for pharmacologic stress test, pt could not do treadmill in the past. Last stress test in 2012 was intermediate troponin pending (2) Rash Comment: Had "brushings" by a broth setter from [place]-requested medical records. Appears to be eczema like but due to the duration surgery will bx today. appreciate 's consult-blood cx neg, will d/c Vancomycin (3) Toe ulcer Comment: appears not infected wound care consult appreciated (4) BPH (benign prostatic hypertrophy) Comment: cont Flomax (5) DM type 2 (diabetes mellitus, type 2) Comment: Cont SS Humalog coverage (6) HTN (hypertension) Comment: controlled cont lisinopril , Lasix (7) Hypothyroidism Comment: Cont current levothyroxine dose (8) Leukocytosis Comment: with episodes of chills, will check UA (9) DVT prophylaxis Comment: heparin sc Status and Disposition: inpatient
[2018-01-16] MEDS: Insulin LISPRO* 1 UNITS UNIT SUBCUT SCH ×3 (09:06→17:17)
[2018-01-16] MEDS: Montelukast Sodium TAB* 10 MG PO SCH (09:09)
[2018-01-16] MEDS: Levothyroxine TAB* 112 MCG TAB PO SCH (09:09)
[2018-01-16] MEDS: Tamsulosin CAP* 0.4 MG PO SCH (09:09)
[2018-01-16] MEDS: Furosemide TAB* 40 MG PO SCH (11:04)
--- NOTE | 2018-01-16 11:35 | PN ---
Progress Note - Progress Note Date of Service: 01/16/18 Note: Patient was seen and examined at bedside. Has chronic diffuse pruritic rash for past 6 month, not getting angelito better. Has been seen by a machine set up operator at [facility]; a shave bx was performed on his back, negative for malignancy per patient. Chest pain this AM, negative EKG; stress test scheduled per hospitalist On exam: diffuse erythema noted to both upper and lower extremities bilaterally , extending to trunk, face and scalp as well, covered with dry scales. Evidence of multiple skin abrasions at extremities and trunk due to itching. No evidence of secondary infection or cellulites. Discussed with patient getting a full thickness skin biopsies for histological evaluation, he agreed to proceed. Discussed with Dr. Lopez, will proceed with skin biopsy under local anesthetic in OR minor procedures room.
[2018-01-16 11:58] LABS: Urine Appearance Clear; Urine Blood Negative (Negative); Urine Color Yellow; Urine Ketones Trace (Negative); Urine Protein Negative (Negative); Urine Specific Gravity 1.027 (1.010-1.030); Urine Urobilinogen Negative (Negative)
[2018-01-16] MEDS ORDERED: Bupivacaine 0.25% SDV* 30 ML ONE (12:07)
[2018-01-16] MEDS ORDERED: Bupivacaine 0.5% SDV PF* 10-30ML VIAL ONE (12:07)
[2018-01-16] MEDS ORDERED: Lidocaine 1.5% EPI 1:200,000* 30 ML SDV ONE (12:07)
[2018-01-16] MEDS ORDERED: Regadenoson* 0.4 MG/5 ML SYRINGE ONE (13:06)
[2018-01-16] MEDS ORDERED: Insulin LISPRO* 1 UNITS UNIT SUBCUT SCH (17:37)
[2018-01-16] MEDS: CMCS:Melatonin (NF) 3 MG TAB PO PRN (20:40)
[2018-01-16] MEDS: hydrOXYzine HCL TAB* 25 MG PO PRN (20:49)
[2018-01-17] MEDS: Heparin VIAL(*) 5000 UNITS/ML VIAL (FIVE THOUSAND) SUBCUT SCH ×2 (05:28→14:25)
[2018-01-17 06:03] LABS: Hematocrit 38 % (42-52); Hemoglobin 12.5 g/dl (14.0-18.0); Mean Corpuscular HGB Conc 33 g/dl (31-36); Mean Corpuscular Hemoglobin 30 pg (27-31); Mean Corpuscular Volume 92 fL (80-94); Mean Platelet Volume 7 um3 (7.4-10.4); Platelet Count 402 10^3/ul (150-450); Red Blood Count 4.12 10^6/ul (4.0-5.4); Red Cell Distribution Width 15 % (10.5-15); White Blood Count 12.9 10^3/ul (3.5-10.8)
[2018-01-17 06:20] LABS: EGFR Non-African American 66.7 (>60)
[2018-01-17] MEDS: Insulin LISPRO* 1 UNITS UNIT SUBCUT SCH ×2 (08:20→12:30)
--- NOTE | 2018-01-17 08:46 | RAD ---
Edited for charges. INDICATION: Chest pain and shortness of breath in a patient with multiple cardiac risk factors COMPARISON: Similar examination May 18, 2013 no reported decreased perfusion at the inferior wall, a dilated left ventricle, hypokinesia as well as a low normal ejection fraction. TECHNIQUE: SPECT imaging was performed. On January 16, 2018 stress images were acquired following the intravenous injection of 25.8 millicuries of technetium 99m tetrofosmin at 1339. hours. On January 17, 2018 rest images were acquired following the intravenous administration of 25.6 millicuries of technetium 99m tetrofosmin. The patient received intravenous Lexiscan prior to the stress image acquisition. The patient's body habitus prevented CT imaging for the purpose of attenuation correction which limits diagnostic utility. FINDINGS: Along the inferior wall there is reduced uptake both on the rest images and the stress images. The stress images are slightly worse when compared to the rest. The cardiac chamber size is normal. There are no wall motion abnormalities. The ejection fraction is calculated at 57% during stress, previously 52%. IMPRESSION: 1. There is reduced uptake on the rest images with slight worsening on the stress images. This may simply be the consequence of lack of attenuation correction due to the patient's inability to undergo CT imaging. 2. The estimated ejection fraction is low normal, slightly increased when compared to the May 18, 2013 myocardial scan. 3. The appearance of dilated ventricle and incomplete contraction appears improved when compared to the previous myocardial scan. ASSESSMENT: Intermediate risk Based on imaging criteria from ACC/AHA 2002 Guideline Update for the Management of Patients With Chronic Stable Angina Table 23. Noninvasive Risk Stratification. MTDD
[2018-01-17] MEDS ORDERED: Polyethylene Glycol 3350* 17 GM PACKET PO SCH (09:00)
[2018-01-17] MEDS ORDERED: Mupirocin 2% OINT* TUBE TOPICAL SCH (09:00)
[2018-01-17] MEDS: Furosemide TAB* 40 MG PO SCH (10:23)
[2018-01-17] MEDS: Levothyroxine TAB* 112 MCG TAB PO SCH (10:23)
[2018-01-17] MEDS: Tamsulosin CAP* 0.4 MG PO SCH (10:23)
[2018-01-17] MEDS: Montelukast Sodium TAB* 10 MG PO SCH (10:23)
[2018-01-17 12:30] VITALS: BP 129/59
--- NOTE | 2018-01-17 12:55 | PRO ---
CC: EUNICE Blackwell PROCEDURE NOTE: DATE OF PROCEDURE: 01/16/18 PREPROCEDURE DIAGNOSIS: Rash. POSTPROCEDURE DIAGNOSIS: Rash. PROCEDURE: Skin biopsy, rash right arm. SURGEON: Sunny Lopez MD LEARNING AND DEVELOPMENT CONSULTANT: None. ANESTHESIA: 1% lidocaine with epinephrine used locally. SPECIMENS: Skin biopsy of right arm. DRAINS: None. COMPLICATIONS: None. PROCEDURE: The patient was brought to the procedure room. He was prepped and draped. Time-out was performed. Local anesthetic was infiltrated to the skin. An elliptical incision was created excising a ocean import representative portion of the skin full thickness. The wound was closed with 4-0 Prolene in interrupted fashion. Dressings were applied. The patient tolerated this well. [id number]/[facility] #: [id number] [facility]
--- NOTE | 2018-01-18 13:41 | DS ---
CC: EUNICE Blackwell; Dr. Gonzalez; Dr. La; Dr. Lopez.* DISCHARGE SUMMARY: DATE OF ADMISSION: 01/14/18 DATE OF DISCHARGE: 01/17/18 PRIMARY CARE PROVIDER: EUNICE Blackwell, from [facility]. DISCHARGE DIAGNOSES: 1. Chest pain with intermediate probability cardiac stress test. 2. Generalized rash for the past several months, likely eczema, status post a skin biopsy performed by Dr. Lopez during the hospital stay with pathology still pending. 3. Leukocytosis with no evidence of bacteremia and grossly negative infectious workup during the hospital stay. SECONDARY DIAGNOSES: 1. History of methicillin-sensitive Staphylococcus aureus bacteremia in 2016 x2. 2. History of obstructive sleep apnea on BiPAP at night. 3. Diabetes type 2. 4. Benign prostatic hyperplasia. 5. Morbid obesity. 6. Chronic back pain. 7. Arthritis. 8. Vertigo. 9. Hypertension. 10. Hypothyroidism. 11. History of asthma. 12. History of osteomyelitis, status post right third toe amputation for it. 13. History of prostatectomy. MEDICATIONS AT DISCHARGE: Include new medication which is Norvasc 5 mg p.o. daily and aspirin 81 mg daily. The remaining medications are unchanged and included: 1. Albuterol inhaler on a p.r.n. basis. 2. Benadryl on a p.r.n. basis. 3. Furosemide 40 mg daily. 4. Synthroid 112 mcg daily. 5. Lisinopril 20 mg daily. 6. Meclizine on a p.r.n. basis. 7. Metformin 1500 mg daily. 8. Singulair 10 mg daily. 9. Flomax 0.4 mg daily. CONSULTATIONS DURING THE HOSPITAL STAY: Included: Dr. Lopez from surgery for a skin biopsy. Dr. Aleman from Infectious Diseases due to history of MSSA bacteremia in the past and rash. LABORATORY DATA AND STUDIES PERFORMED DURING THE HOSPITAL STAY: Included: On 01/17/18 white blood cell count of 12.9, hemoglobin of 12.5, hematocrit of 38 , and platelets of 402. D-dimer was 717 at admission. Sodium was 137, potassium 4.1, chloride 107, carbon-dioxide 21, BUN 22, creatinine 1.08. Liver function tests were unremarkable on admission and on admission the patient's CRP was 25. Microbiology studies showed negative blood cultures and positive nasal swab for MRSA. CT angiogram of the chest obtained on admission. Impression: "No pulmonary arterial filling defects to suggest pulmonary embolism." Pathology report of the skin biopsy showed "subacute spongiotic dermatitis with eosinophils. Fungal staining was negative. Direct immunofluorescence microscopy was negative. The diagnosis includes a hypersensitivity reaction to medication or other internal agent and contact dermatitis." Nuclear medicine cardiac stress test documented on 01/17/18. Impression: "There is a reduced uptake on the rest images with slight worsening on the stress images. This may simply be because of lack of attenuation correction due to the patient's inability to undergo CT imaging. The estimated ejection fraction is low normal, slightly increased when compared to the May 2013 myocardial scan. The appearance of dilated ventricle and complete contraction appears improved when compared to the previous myocardial scan. It was assessed as intermediate risk. The EF was noted to be 57% during stress." Transthoracic echocardiogram obtained on 01/14/18 showed EF 55% to 60% with left ventricular wall motion and contractility within normal limits. Trace tricuspid regurgitation and normal LV function. HOSPITALIZATION COURSE: Norbert Pierce is a 77-year-old male who had been treated for dermatitis/eczema for the past several months during the winter season. He went to several dermatologists and apparently had an outpatient biopsy that was negative for malignancy or an infection. He came into the hospital complaining of chills, feeling unwell, as well as chest pain. Upon evaluation his CT angiogram was negative for a PE. His troponins continued to be negative and his echocardiogram was unremarkable. Unfortunately, he developed another episode of chest pain during his hospital stay. At that point it was early in the morning, he was sitting by the bedside awaiting for his breakfast to arrive. He complained of chest pain 4/10 and with substernal pressure, was not associated with diaphoresis or shortness of breath or exertion. Due to that and his risk factors that included diabetes, hypertension , hyperlipidemia, and morbid obesity with a BMI of 39, a cardiac stress test was obtained. He needed to undergo a 2-day cardiac stress test due to his obesity. Unfortunately, he did not tolerate CT correction for attenuation of the images. Likely due to that his cardiac stress test was documented at intermediate. I discussed the case with Dr. Gonzalez who noted that the patient' s inferior wall does appear to have slightly worsened, reduced uptake comparing from 2013. Nevertheless, the patient's echocardiogram shows no wall motion abnormality. His EKG is unremarkable and his troponin were negative. At this point, the patient was started on a mild vasodilator which was Norvasc. He was recommended not to over exert himself and to follow up with Dr. La who saw the patient for inpatient consultation less than a year ago for a followup. It is low probability that the patient's chest pain documented during the hospital stay was actually related to angina. Having said that once again the patient is likely a vasculopath due to his risk factors. 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 It did not appear to be acutely infected and Wound Care recommended triple antibiotic ointment with dressing changes daily which the patient was already doing at home. 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 Lopez was kind enough to do so on 01/16/18. The biopsy results were just reported as likely dermatitis whether it is a contact dermatitis or drug reaction. Having said that, for the past 2 days, the nursing staff was very good with putting ointments and moisturizers on patient's body and the rash greatly improved with just moisturizing treatment. The patient was initially placed on observation due to his chills and a history of MSSA bacteremia in the past. Dr. Aleman saw the patient in consultation and noted that the rash is likely related to allergy and not infectious disease. The patient's blood cultures were negative throughout his hospital stay and the initially stared vancomycin was stopped. There was no evidence of infection during his hospital stay. The patient's leukocytosis with mild eosinophilia is likely related to the patient's dermatitis. At discharge, we also discussed the use of aspirin. The patient stated that in the past he was worried of using aspirin since he "bleeds very easily." I did educate the patient about not excoriating his rash, but moisturizing it. He agreed to taking a baby aspirin on a daily basis. PHYSICAL EXAMINATION: At the time of discharge blood pressure 129/59, heart rate of 69 and regular, respiratory rate 16, oxygen saturation 100% on room air , and temperature 98.0. General Appearance: This is a very pleasant 77-year-old morbidly obese male who is in no acute distress. Alert, awake, and oriented x3. HEENT: Head atraumatic and normocephalic. Eyes; pupils are equal and reactive to light and accommodation. Oropharynx clear. Mucosa moist. Neck: Supple. No JVD, no bruits bilaterally. Cardiovascular: Regular, rate, and rhythm. No murmur. Respiratory: Clear to auscultation bilaterally. Abdomen: Soft and nontender. Bowel sounds are present in all 4 quadrants. Extremities: There is +1 pitting pedal edema bilaterally. Pulses are +2 bilaterally. There is no clubbing or cyanosis. On evaluation of the skin, the patient has confluent erythema surrounding bilateral upper extremities and the patient's trunk, front and back. The patient had patchy erythema on bilateral lower extremities which resolved during his hospital stay. He still has excoriations in bilateral lower extremities distally as well as a right tip of the first toe ulcer that is approximately 2 cm in diameter with clean margins and no evidence of infection. Neuro Evaluation: The patient has underlying baseline tremor which is of low amplitude and in the bilateral upper extremities and it is chronic as per patient. Otherwise, neuro exam unremarkable. Motor strength is 5/5 bilaterally and sensation grossly intact but diminished in bilateral feet due to peripheral neuropathy. The patient's case was discussed with the patient's primary care provider at discharge. He is to follow up with his primary care provider in approximately 4 to [address] Campuzano in approximately 1 to 2 weeks. He is not to overexert himself and continue on diabetic and cardiac diet. He was educated about how important it is to continue to moisturize his skin. Please note that this is a short summary of the patient's hospitalization, please refer to further medical records for details. TIME SPENT: Approximately 45 minutes was spent on the patient's discharge. [id number]/[facility] #: [id number] CHAZ
== END 2018-01-17 15:58 | disposition home or self-care (01) | DRG 607 ==
LOC: ED 13:17 → MEDTELE 15:58
PROVIDERS: ADMIT Pediatrics; ATTEND Internal Medicine
PROC: 4A12XM4 Monitoring of Cardiac Stress, External Approach (ICD-10-PCS; 2018-01-16)
PROC: 0HBBXZX Excision of Right Upper Arm Skin, External Approach, Diagnostic (ICD-10-PCS; principal; 2018-01-16 12:45)
DX: L25.1 Unspecified contact dermatitis due to drugs in contact with skin (principal); E11.42 Type 2 diabetes mellitus with diabetic polyneuropathy; D72.1 Eosinophilia; T68.XXXA Hypothermia, initial encounter; E11.621 Type 2 diabetes mellitus with foot ulcer; E66.01 Morbid (severe) obesity due to excess calories; I07.1 Rheumatic tricuspid insufficiency; T50.905A Adverse effect of unspecified drugs, medicaments and biological substances, initial encounter; L97.519 Non-pressure chronic ulcer of other part of right foot with unspecified severity; K21.9 Gastro-esophageal reflux disease without esophagitis; I10 Essential (primary) hypertension; G47.33 Obstructive sleep apnea (adult) (pediatric); N40.0 Benign prostatic hyperplasia without lower urinary tract symptoms; M19.90 Unspecified osteoarthritis, unspecified site; E03.9 Hypothyroidism, unspecified; J45.909 Unspecified asthma, uncomplicated; E78.5 Hyperlipidemia, unspecified; G89.29 Other chronic pain; M54.9 Dorsalgia, unspecified; S80.812A Abrasion, left lower leg, initial encounter; S80.811A Abrasion, right lower leg, initial encounter; L29.8 Other pruritus; J00 Acute nasopharyngitis [common cold]; X58.XXXA Exposure to other specified factors, initial encounter; R07.9 Chest pain, unspecified; R42 Dizziness and giddiness; Z79.82 Long term (current) use of aspirin; Z91.09 Other allergy status, other than to drugs and biological substances; Z98.41 Cataract extraction status, right eye; Z86.14 Personal history of Methicillin resistant Staphylococcus aureus infection; Z91.010 Allergy to peanuts; Z86.19 Personal history of other infectious and parasitic diseases; Z87.891 Personal history of nicotine dependence; Z88.0 Allergy status to penicillin; Z91.018 Allergy to other foods; Z68.39 Body mass index [BMI] 39.0-39.9, adult; Z89.421 Acquired absence of other right toe(s); Z90.79 Acquired absence of other genital organ(s); Z80.0 Family history of malignant neoplasm of digestive organs; Z82.49 Family history of ischemic heart disease and other diseases of the circulatory system; Z85.46 Personal history of malignant neoplasm of prostate; Y92.009 Unspecified place in unspecified non-institutional (private) residence as the place of occurrence of the external cause; Z79.84 Long term (current) use of oral hypoglycemic drugs
CPT/HCPCS: 36415; 71045; 71275; 78452; 80048; 80053; 81003; 83036; 83605; 83880; 84484; 85025; 85027; 85379; 85610; 86140; 87040; 87641; 88305; 88312; 88346; 88350; 93005; 93306; 99283; A9270-GY; A9502; J1644; J2270; J2405; J2785; J3370; Q9967

== ENCOUNTER 2018-02-21 15:38 | Emergency (ER) | payer MEDICARE ==
--- OUTSIDE RECORDS SUMMARY | 2018-02-21 16:35 | XMS REPORT ---
:1940 External Reference #:[id number] Author Organization [facility] Address [address] [address] Phone [phone] Care Team Providers Name Role Phone Tavo Ungre RPA-C Primary Care Physician Unavailable Payers Type Date Identification Numbers Payment Provider Subscriber Commercial Effective: Policy Number: [id number] [facility] Prog/Todays Tavo Lomaxnisreen 2017 Options PayID: [id number] [address] [address] Attn: [place] [address] Health Maintenance Effective: Policy Number: [employer] Medicare Tavo Bautista (HMO) 11/06/2010 [id number] Clemente Daminisreen Expires: 11/05/2017 Group Number: [id number] [address] [address] PayID: [id number] [place] [address] Problems Date Description Provider Status Onset: 08/05/2011 Diabetes mellitus Justin Denny M.D. Active Onset: 08/05/2011 Obstructive sleep apnea syndrome Justin Denny M.D. Active Onset: 08/05/2011 Chronic asthmatic bronchitis Justin Denny M.D. Active Onset: 08/05/2011 Benign essential hypertension Justin Denny M.D. Active Onset: 08/05/2011 Electrocardiogram abnormal Justin Denny M.D. Active Onset: 09/16/2011 Malignant essential hypertension Justin Denny M.D. Active Onset: 09/16/2011 Hyperlipidemia Justin Denny M.D. Active Onset: 09/16/2011 Dyspnea Justin Denny M.D. 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 ETOH Use Denies alcohol use Smoking Patient is a former smoker smoked for 5 years-quit at age 24 Recreational Drug Use Denies Drug Use Daily Caffeine Consumes on average 2 cups of occas "monster" drink decaff coffee per day Exercise Type/Frequency Does not exercise Allergies, Adverse Reactions, Alerts Date Description Reaction Status Severity Comments 08/05/2011 Penicillin active 08/05/2011 Feathers active 08/05/2011 Horse active 08/05/2011 Peanuts active Medications Medication Date Status Form Strength Qnty SIG Indications Ordering Provider Danitza 02/15 Active Tablets 5mg 60tab 1 by mouth I48.0 Benjamín /2017 s twice a day Brooks La M.D. Albuterol Active Aerosol 90mcg/Act 1unit 1 puff bid / s Levothyroxine Active Tablets 112mcg 90tab 1 po qd Unknown s Furosemide Active Tablets 20mg 30tab po qam Unknown / s Singulair Active Tablets 10mg 1 po qd Unknown Metformin HCL Active Tablets 500mg three tabs Unknown every day Tamsulosin HCL Active Capsules 0.4mg 1 by mouth Unknown every day Lisinopril Active Tablets 20mg 1 by mouth Unknown every day Acetaminophen ER Active Tablets 650mg 1 tab by /0000 ER mouth every 4 hours as needed pain Triamcinolone Active Cream 0.1% apply thin Unknown Acetonide / film twice daily Sulfamethoxazole/T Active Tablets 800-160mg 1 tab by Session, rimethoprim DS /0000 mouth twice Tavo, a day for RPA-C 10 days Meclizine HCL Active Tablets 25mg Take One Unknown Tablet By Mouth Three Times A Day as Needed Prednisone Active Tablets 5mg 1 daily Session, / Tavo, RPA-C Super C-500 Active Tablets 1 twice a Unknown Complex /0000 ER day Super Chelated Active 1 daily Unknown Multivitamin / Glucosamine Active Capsules 1500Com 2 by mouth Unknown Chondroitin 1500 /0000 every day Complex Multi Mineral Active Unknown / Chromium Active Capsules 200mcg 1 daily Unknown Picolinate Vitamin B Complex Active Tablets 1 by mouth Unknown twice a day Efa Superior Active 1000mg 1 daily Unknown Essential Fatty Acids Muscle Therapy Active as needed Unknown With Arnica Chlorhexidine Active Solution 0.12% swish and Unknown Gluconate spit 15 milliliters twice a day until resolution of symptoms Cephalexin 08/12 Hx Capsules 500mg 21cap take one M86.671 Satish s capsule by D. - mouth three Macqueen, 02/12 times a day M.D. /2017 Doxycycline Hx Capsules 100mg 14cap bid po Unknown Hyclate s - 08/05 Dexamethasone Hx Solution 10mg/cc 30ml Unknown Sodium Phosphate / - 08/02 Advair Diskus Hx Aerosol 100-50mcg 60uni 1 Unknown / /Dose ts inhalation - twice daily 02/12 Singulair Hx Chewtabs 5mg 180un 1 po bid Unknown / its - 09/16 Doxazosin Mesylate Hx Tablets 4mg 1 po qd Unknown / - 07/27 Hydrochlorothiazid Hx Tablets 50mg qam Unknown e / - 07/27 Glyberide Hx Tablets 5mg 90tab 1 po bid Unknown / s prn - 07/27 Multi-Vitamin Hx Tablets 1 po qd Unknown / - 08/03 Glucosamine-Chondr Hx Capsules 60cap Unknown oitin Complex / s Triple Strength - 08/03 Bactrim DS / Hx Tablets 800-160mg 14tab 1 po bid Unknown /0000 s for 7 days - 08/05 Flomax Hx Capsules 0.4mg 30cap 1 po qd Unknown /0000 s - 08/05 Proscar Hx Tablets 5mg 90tab 1 po qd Unknown /0000 s - 08/03 Ibuprofen Hx Tablets 200mg 90tab prn Unknown /0000 s - 08/03 Multiple Herbs, Hx scanned Unknown Vitamins And /0000 into chart Minerals - 08/03 Cefazolin Sodium Hx Solution 1gm 2 gm iv Unknown /0000 Rec every 8 - hours x 2 02/12 wks through [facility] Sodium Chloride Hx Solution 0.9% please use Unknown Flush /0000 15ml saline - flush 02/12 intratrache /2017 ally 3-4 times a day Triamcinolone Hx Unknown Diacetate /0000 - 02/12 Vital Signs Date Vital Result Comment 02/15/2018 Height 71 inches 5'11" Weight 248.00 lb with shoes Heart Rate 62 /min BP Systolic Sitting 140 mmHg Rue lrg cuff BP Diastolic Sitting 68 mmHg Rue lrg cuff BP Systolic Standing 146 mmHg Rue lrg cuff BP Diastolic Standing 76 mmHg Rue lrg cuff Respiratory Rate 18 /min BMI (Body Mass Index) 34.6 kg/m2 Ejection Fraction 55-60% 01/15/2018-echo 08/12/2016 Height 71 inches 5'11" Weight 313.00 lb Heart Rate 80 /min BP Systolic Sitting 150 mmHg BP Diastolic Sitting 76 mmHg Respiratory Rate 14 /min Body Temperature 97.9 F BMI (Body Mass Index) 43.6 kg/m2 08/12/2016 Height 71 inches 5'11" Heart Rate 64 /min BP Systolic 172 mmHg BP Diastolic 81 mmHg Pain Level 0 08/04/2016 Height 71 inches 5'11" Weight 300.00 lb Heart Rate 67 /min BP Systolic 152 mmHg BP Diastolic 80 mmHg BMI (Body Mass Index) 41.8 kg/m2 09/16/2011 Height 71 inches 5'11" Weight 344.00 lb Heart Rate 65 /min BP Systolic Sitting 140 mmHg L BP Diastolic Sitting 74 mmHg L BMI (Body Mass Index) 48.0 kg/m2 08/05/2011 Height 71 inches 5'11" Weight 345.00 lb Heart Rate 58 /min BP Systolic Sitting 164 mmHg L BP Diastolic Sitting 82 mmHg L BMI (Body Mass Index) 48.1 kg/m2 Results Test Date Test Result H/L Range Note Laboratory test 01/16/2018 Surgical Pathology SEE RESULT BELOW 1 finding 1 SEE RESULT BELOW Name: TAVO PIERCE : [address]: Madelyn Hale MD Acct: [id number] Unit: [id number] AGE: 77 Location: [place] [address] Re01/14/18 SEX: M Status: ADM IN SPEC: [id number] MEETA: 01/16/18-12[address] [facility] [address]: Sunny Lopez MD REQ: [id number] RECD: 01/16/18-1244 STATUS: SOUT _ ORDERED: LEVEL 4, SPEC STAIN ORG/2, DIF-FIRST AB, DIF-ADDL AB/4 FINAL DIAGNOSIS Skin, right arm, biopsy: -- Subacute spongiotic dermatitis with eosinophils; see comment. COMMENT: Direct immunofluorescence microscopy is negative. Fungal staining is negative. The histologic differential diagnosis includes a hypersensitivity reaction to a medication or other internal antigen and contact dermatitis. PRE-OPERATIVE DIAGNOSIS 6 month rash GROSS DESCRIPTION The specimen is received fresh labeled, Right Arm Skin Biopsy, and consists of a 1.3 x 0.5 cm [place]ledo-pink unoriented skin ellipse excised to a depth of 0.4 cm. The specimen is inked, serially sectioned and apparel trimmings sales representative sections are submitted for immunofluorescence microscopy. The remaining specimen is entirely submitted in one cassette. MICROSCOPIC DESCRIPTION Histologic sections show a punch biopsy of skin excised to include subcutaneous tissue. Confluent parakeratosis with loculated serum in the stratum corneum overlies epidermis with spongiosis. Fibrin is present in the spongiotic epidermis along with occasional necrotic keratinocytes. In the superficial to mid dermis a perivascular inflammatory infiltrate is present composed of lymphocytes and eosinophils. Deeper levels of sectioning show similar histologic features. GMS and PAS stains, with appropriately reacting controls, are negative for fungal organisms. Direct immunofluorescence microscopy, with appropriately reacting controls, was performed with the following results: Fibrinogen negative CONTINUED ON NEXT PAGE DEPARTMENT OF PATHOLOGY, [address] [place] [address] Antony Summers M.D. Director [facility] # [id number] RUN DATE: 01/17/18 [facility] LAB LIVE PAGE 2 Patient: TAVO PIERCE Lisha [id number] (Continued) MICROSCOPIC DESCRIPTION (Continued) MICROSCOPIC DESCRIPTION (Continued) C3 negative IgA negative IgM negative IgG negative Signed (signature on file) Marylou Gómez MD 1344 END OF REPORT DEPARTMENT OF PATHOLOGY, [address] [place] [address] Antony Summers M.D. Director [facility] # [id number] Procedures Date CPT Code Description Status 02/15/2018 09805 EKG Tracing & Interpretation Completed 01/16/2018 63117 Treadmill Interp/Report Only Completed 01/16/2018 76362 Stress Test Supervsn W/Out I/R Completed 01/16/2018 50378 Biopsy Skin Lesion Single Completed 01/15/2018 93215 ECHO Transthorasic Realtime 2D W Doppler & Color Completed [facility] 05/07/2017 33426 ECHO Transthorasic Realtime 2D W Doppler & Color Completed Flow [facility] 05/06/2017 53130 EKG, Interpretation Only Completed 05/06/2017 07421 EKG, Interpretation Only Completed 07/25/2016 17864 Amputation Toe MP JT Completed 07/25/2016 60715 Amputation Toe MP JT Completed 07/21/2016 23779 Color Flow Doppler/Interp & Reprt Completed 07/21/2016 53190 Pulse Wave/Continuous-Interp.RPT Completed 07/21/2016 47201 Echocardiography, Transesophageal, Real Time W/Image 2D Completed W/W/O M-M 07/19/2016 42694 EKG, Interpretation Only Completed 02/05/2016 93363 EKG, Interpretation Only Completed 11/10/2015 63965 Echocardiography, Transesophageal, Real Time W/Image 2D Completed W/W/O M-M 11/10/2015 66997 Pulse Wave/Continuous-Interp.RPT Completed 11/10/2015 65607 Color Flow Doppler/Interp & Reprt Completed 11/09/2015 04965 EKG, Interpretation Only Completed 05/17/2013 87228 Treadmill Interp/Report Only Completed 05/17/2013 57916 Stress Test Supervsn W/Out I/R Completed 05/17/2013 46054 EKG, Interpretation Only Completed 05/16/2013 77953 ECHO Transthoracic, Real-Time 2D With Doppler And Color Completed Flow 09/16/2011 14972 EKG Tracing & Interpretation Completed 09/01/2011 67471 Treadmill Interp/Report Only Completed 09/01/2011 08628 Stress Test Supervsn W/Out I/R Completed 08/15/2011 31031 ECHO Transthoracic, Real-Time 2D With Doppler And Color Completed Flow 08/05/2011 16571 EKG Tracing & Interpretation Completed 11/19/2007 27114 Color Flow Doppler/Interp & Reprt Completed 11/19/2007 23858 Pulse Wave/Continuous-Interp.RPT Completed 11/19/2007 85153 Pulse Wave/Continuous-Interp.RPT Completed 11/19/2007 07859 Echocardiogram Completed Encounters Type Date Location Provider CPT E/M Dx Office Visit 01/17/2018 [facility],kaykay Hale M.D. 18539 R21 11:03a Hospitalists R65.10 E11.52 E03.9 Office Visit [facility] 69533 R21 Hospitalists R65.10 E11.52 E03.9 Office Visit 01/15/2018 9:14a [facility] Satish Andrews, 70614 R21 Infectious Diseases Mark R68.83 R79.82 L53.9 E11.621 L97.519 Office Visit 01/15/2018 11:01a [facility] M.D. 25292 R21 Hospitalists R65.10 E11.52 E03.9 Office Visit 01/14/2018 11:00a [facility],[place] [address] R21 Hospitalists R65.10 E11.52 E03.9 Office Visit 05/07/2017 2:37p [facility] Jose Antonio Silva, 33487 I48.91 Assoc,kaykay [place] Hospitalists J44.9 G47.33 I95.1 Office Visit 05/06/2017 [facility] 42002 I48.91 Assoc, [place] Hospitalists J44.9 G47.33 I95.1 Office Visit 05/06/2017 2:19p [facility] Benjamín La, [address]37 R55 Johan Flores Office Visit 05/05/2017 2:35p [facility], Ten Nick, 26751 I48.91 Hospitalists N.PGodwin J44.9 G47.33 I95.1 Office Visit 08/12/2016 11:10a [facility] Satish Guy 78515 M86.671 Infectious Diseases Mark Andrews L03.115 K02.9 Office Visit 07/26/2016 1:13p [facility], Bailey Carlin, 22375 A41.9 Hospitalists MElisa E11.9 J44.9 E66.01 Office Visit 07/25/2016 1:13p [facility]lin, 90344 A41.9 Hospitalists MElisa E11.9 J44.9 Office Visit 07/24/2016 1:12p [facility] Bailey Carlin, 93970 A41.9 Hospitalists MElisa E11.9 J44.9 Office Visit 07/24/2016 10:19a [facility], 06901 L03.031 C.M.A. PA Office Visit 07/23/2016 10:18a [facility], 34003 L03.031 C.M.A. PA Office Visit 07/23/2016 1:09p [facility] Bailey Carlin, 81421 A41.9 Assoc,pc Hospitalists MGodwinDGodwin E11.9 J44.9 E66.01 Office Visit 07/22/2016 1:09p [facility], Bailey Carlin, 11270 A41.9 Hospitalists M.DGodwin E11.9 J44.9 Office Visit 07/21/2016 1:09p [facility], Bailey Carlin, 91654 A41.9 Hospitalists MGodwinDGodwin E11.9 J44.9 E66.01 Office Visit 07/20/2016 10:38a [facility] Satish Guy 37403 L03.115 Infectious Diseases Mark Andrews M86.671 E11.69 R78.81 Office Visit 07/20/2016 1:[facility]p [facility] [place] [address] A41.9 Hospitalists E11.9 J44.9 E66.01 Office Visit 07/19/2016 1:07p [facility], Filemon Adhikari M.D. 96921 A41.9 Hospitalists E11.9 J44.9 E66.01 Office Visit 07/19/2016 10:27a [facility] Satish Andrews, 76155 A41.2 Infectious Diseases Mark L03.031 F05 R10.84 M25.551 J44.9 Office Visit 02/05/2016 10:50a [facility], [place] [address] I10 Hospitalists R07.89 Office Visit 11/10/2015 8:18a [facility] Satish Andrews, 19951 R78.81 Infectious Diseases Mark K02.9 E66.9 Office Visit 11/10/2015 1:20p [facility], Madelyn Hale, 70676 R07.9 Hospitalists MElisa G47.33 A41.9 E11.9 Office Visit 11/09/2015 1:19p [facility], Madelyn Hale, 37730 R07.9 Hospitalists MGodwinDGodwin G47.33 A41.9 E11.9 Office Visit 11/09/2015 2:53p [facility] Satish Andrews, 46255 R78.81 Infectious Diseases M.DGodwin R50.9 R53.83 R06.00 K02.9 E11.9 Office Visit 11/08/2015 1:18p [facility], Madelyn Hale, 17023 R07.9 Hospitalists MGodwinDGodwin G47.33 R65.10 Office Visit 05/18/2013 8:53a [facility], Agapito Burt, 70881 786.51 Hospitalists N.P. 250.00 278.01 Office Visit 05/18/2013 9:28a [facility] [place], [address] 794.31 M.D. 786.50 272.4 401.1 Office Visit 05/16/2013 8:51a [facility], Amparo Junior, N.P. 64758 786.51 Hospitalists 250.00 278.01 Office Visit 09/16/2011 10:20a [facility]. [place]isha, 61262 794.31 M.D. 401.0 272.4 327.23 250.90 786.05 Office Visit 09/01/2011 10:30a [facility]. [place]isha, [address]10[address] 794.31 M.D. V72.81 272.4 401.0 Office Visit 08/05/2011 1:40p [facility] S. Ad, [address] 250.90 M.D. 327.23 493.20 401.1 794.31 V72.81 Plan of Care 02/15/2018 - Benjamín La M.D.I48.0 Paroxysmal atrial fibrillationNew Medication:Eliquis 5 mgFollow up:4 uvglmzW35.02 Shortness of breath
[2018-02-21 16:56] LABS: Hematocrit 43 % (42-52); Hemoglobin 13.8 g/dl (14.0-18.0); Mean Corpuscular HGB Conc 32 g/dl (31-36); Mean Corpuscular Hemoglobin 30 pg (27-31); Mean Corpuscular Volume 93 fL (80-94); Mean Platelet Volume 7.3 um3 (7.4-10.4); Platelet Count 304 10^3/ul (150-450); Red Blood Count 4.58 10^6/ul (4.0-5.4); Red Cell Distribution Width 17 % (10.5-15); White Blood Count 13.7 10^3/ul (3.5-10.8)
[2018-02-21] MEDS ORDERED: Aspirin 81 mg CHEW TAB* 81 MG TAB.CHEW PO ONE (17:04)
[2018-02-21 17:05] LABS: INR 1.09 (0.77-1.02)
[2018-02-21] MEDS ORDERED: Aspirin 81 mg CHEW TAB* 81 MG TAB.CHEW ONE (17:06)
[2018-02-21 17:14] LABS: EGFR Non-African American 61.4 (>60)
[2018-02-21 17:31] LABS: ABS Basophils 0.2 10^3/ul (0-0.2); ABS Eosinophils 1.7 10^3/ul (0-0.6); ABS Lymphocytes 1.1 10^3/ul (1.0-4.8); ABS Monocytes 1.4 10^3/ul (0-0.8); ABS Neutrophils 9.3 10^3/ul (1.5-7.7); ABS Nucleated RBC 0 10^3/ul; Eosinophil % 12.3 % (0-6); Lymphocyte % 8.3 % (25-47); Nucleated Red Blood Cells % 0
--- NOTE | 2018-02-21 18:19 | RAD ---
INDICATION: Shortness of breath. COMPARISON: Comparison is made with a prior chest x-ray study from January 14, 2018. TECHNIQUE: AP and lateral views of the chest were obtained. FINDINGS: The heart appears enlarged and unchanged from the prior study. The lungs are hyperinflated and clear with flattening of the diaphragms. No pleural effusion is seen. IMPRESSION: FINDINGS CONSISTENT WITH COPD, NO EVIDENCE FOR ACUTE FINDING.
--- NOTE | 2018-02-21 20:05 | ED ---
Joao [place] [facility] scribjose luis for Dev Collins MD on 02/21/18 at 1709 . Shortness of Breath - HPI Summary HPI Summary: This patient is a 77 year old M BIBA to [facility] with a chief complaint of SOB since this morning. Patient reports chills, CP, and irregular heart rate. Patient denies diarrhea, blood in stool, and edema. Hx CHF and Afib. Pt was concerned he might be in afib due to the SOB. - History of Current Complaint Chief Complaint: EDShortnessOfBreath Time Seen by Provider: 02/21/18 16:08 Hx Obtained From: Family/Home Health Rn Onset/Duration: Lasting Hours, Still Present Timing: Constant Current Severity: Moderate Dyspnea At: Exertion Associated Signs & Symptoms: Chills - Allergy/Home Medications Allergies/Adverse Reactions: Allergies Allergy/AdvReac Type Severity Reaction Status Date / Time horse dander Allergy Difficulty Verified 02/21/18 16:03 Breathing/Wheezing Horse/Equine Containing Allergy Difficulty Verified 02/21/18 16:03 Products Breathing/Wheezing peanut Allergy Difficulty Verified 02/21/18 16:03 Breathing/Wheezing peanut oil Allergy Difficulty Verified 02/21/18 16:03 Breathing/Wheezing Penicillins Allergy Difficulty Verified 02/21/18 16:03 Breathing/Wheezing Home Medications: Home Medications Aspirin EC TAB* [Ecotrin EC Low Dose 81 MG*] 81 mg PO DAILY 02/21/18 [History Confirmed 02/21/18] amLODIPine TAB* [Norvasc 5 mg TAB*] 5 mg PO DAILY 02/21/18 [History Confirmed ] PMH/Surg Hx/FS Hx/Imm Hx Endocrine/Hematology History: Reports: Hx Diabetes Cardiovascular History: Reports: Hx Angina, Hx Hypercholesterolemia, Hx Hypertension Denies: Hx Congestive Heart Failure, Hx Coronary Artery Disease, Hx Myocardial Infarction, Hx Pacemaker/ICD, Hx Valvular Heart Disease Respiratory History: Reports: Hx Asthma, Hx Chronic Obstructive Pulmonary Disease (COPD), Hx Sleep Apnea - bipap at night GI History: Reports: Hx Gastroesophageal Reflux Disease History: Reports: Other Problems/Disorders - urinary retention & turp Denies: Hx Renal Disease Sensory History: Reports: Hx Contacts or Glasses - for reading Denies: Hx Hearing Aid Opthamlomology History: Reports: Hx Contacts or Glasses - for reading Neurological History: Reports: Other Neuro Impairments/Disorders - le neuropathy Psychiatric History: Denies: Hx Panic Disorder - Surgical History Surgery Procedure, Year, and Place: turp @ [facility] [place] 2012; cataract right eye - Immunization History Date of Tetanus Vaccine: Within 10 years Date of Influenza Vaccine: 2011 Infectious Disease History: Yes Infectious Disease History: Reports: Hx Clostridium Difficile, Hx of Known/ Suspected MRSA - 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, not active, Hx Shingles - not active Denies: Traveled Outside the [place] in Last 30 Days - Family History Known Family History: Negative: Cardiac Disease, Diabetes - Social History Alcohol Use: None Hx Substance Use: No Substance Use Type: Reports: None Hx Tobacco Use: Yes Smoking Status (MU): Former Smoker Review of Systems Positive: Chills Positive: Chest Pain, Other - Irregular pain Negative: Diarrhea, Other - blood in stool Negative: Edema All Other Systems Reviewed And Are Negative: Yes Physical Exam - Summary Physical Exam Summary: General: well-appearing, no pain distress Skin: warm, there is a diffuse blanching erythematous rash Head: normal Eyes: EOMI, JONATHON ENT: normal Neck: supple, nontender Respiratory: CTA, breath sounds present Cardiovascular: RRR Abdomen: soft, nontender Bowel: present Musculoskeletal: normal, strength/ROM intact Neurological: normal, sensory/motor intact, A&O x3 Psychological: affect/mood appropriate Triage Information Reviewed: Yes Vital Signs On Initial Exam: Initial Vitals Temp Pulse Resp BP Pulse Ox 99 F 102 20 140/75 95 02/21/18 15:40 02/21/18 15:40 02/21/18 15:40 02/21/18 15:40 02/21/18 15:40 Vital Signs Reviewed: Yes Diagnostics - Vital Signs Vital Signs Temp Pulse Resp BP Pulse Ox 02/21/18 15:40 99 F 102 20 140/75 95 - Laboratory Lab Results: Lab Results 02/21/18 02/21/18 Range/Units 16:40 16:40 WBC 13.7 H (3.5-10.8) 10^3/ul RBC 4.58 (4.0-5.4) 10^6/ul Hgb 13.8 L (14.0-18.0) g/dl Hct 43 (42-52) % MCV 93 (80-94) fL MCH 30 (27-31) pg MCHC 32 (31-36) g/dl RDW 17 H (10.5-15) % Plt Count 304 (150-450) 10^3/ul MPV 7.3 L (7.4-10.4) um3 Neut % (Auto) Pending Lymph % (Auto) Pending Yell % (Auto) Pending Eos % (Auto) Pending Baso % (Auto) Pending Absolute Neuts (auto) Pending Absolute Lymphs (auto) Pending Absolute Monos (auto) Pending Absolute Eos (auto) Pending Absolute Basos (auto) Pending Absolute Nucleated RBC Pending Nucleated RBC % Pending INR (Anticoag Therapy) 1.09 H (0.77-1.02) APTT 30.9 (26.0-36.3) seconds D-Dimer, Quantitative < 200 (Less Than 230) ng/mL Result Diagrams: 02/21/18 16:40 02/21/18 16:40 Lab Statement: Any lab studies that have been ordered have been reviewed, and results considered in the medical decision making process. - Radiology CXR Xray Interpretation: No Acute Changes - IMPRESSION: FINDINGS CONSISTENT WITH COPD, NO EVIDENCE FOR ACUTE FINDING. Dr. Collins has reviewed this report. Radiology Interpretation Completed By: Radiologist - EKG 16:16 Cardiac Rate: NL EKG Rhythm: Sinus Rhythm Ectopy: None EKG Interpretation: wandered atrial pace maker at 93 BPM 17:06 Cardiac Rate: NL EKG Rhythm: Sinus Rhythm - at [address] Segment: Normal Ectopy: None EKG Interpretation: Multiple PACs Re-Evaluation - Re-Evaluation First Eval Re-Evaluation Time: 18:45 Change: Improved Comment: The patient feels better and would like to be discharged. Course/Dx - Course Course Of Treatment: HOSPITALIST SAW PATIENT IN ED. THE PATIENT AGREES TO A SECOND TROPONIN BUT, DOES NOT WISH TO BE ADMITTED IF IT IS NORMAL. F/U PMD; RETURN IF WORSE. - Diagnoses Provider Diagnoses: Chest pain, Dyspnea - Physician Notifications Discussed Care of Patient With: Bailey Carlin Time Discussed With Above Provider: 17:15 Instructed by Provider To: Other - Dr Carlin, hospitalist, came to evaluate the patient. The patient was feeling better and would like to be discharged, so the patient will be discharged after a 3-hour troponin that will be obtained at 19: 40. Discharge - Sign-Out/Discharge Documenting (check all that apply): Discharge - Discharge Plan Condition: Stable Disposition: HOME - Billing Disposition and Condition Condition: STABLE Disposition: HOME The documentation as recorded by the Joao aiken Gabriel accurately reflects the service I personally performed and the decisions made by me, Dev Collins MD.
[2018-02-21 20:56] VITALS: BP 128/72
--- NOTE | 2018-02-21 22:08 | CONS ---
HOSPITAL MEDICINE CONSULTATION REPORT: DATE OF CONSULT: 02/21/18 - EMERGENCY DEPT PROVIDER: Anayeli Brooke NP ATTENDING PHYSICIAN: Dr. Collins in the emergency room. CONSULTING PHYSICIAN: Dr. Madelyn Hale (dictated by Anayeli Brooke NP) REASON FOR CONSULTATION: Shortness of breath/chest pain. HISTORY OF PRESENT ILLNESS: Mr. Pierce is a 77-year-old gentleman with past medical history of atrial fibrillation, COPD, hypertension, MRSA, obstructive sleep apnea, diabetes type 2, BPH, morbid obesity, chronic back pain, arthritis , vertigo, hypothyroid, asthma, and prostatectomy, who presented to the emergency room today with complaints of shortness of breath. He states that approximately at 9 o'clock this morning, he developed some shortness of breath and chills. He reports he had some intermittent chest pain. He states that this episode was the same as all of his previous episodes. He was recently seen and treated and admitted to the hospital in January of 2018 and had a full cardiac workup. At that time, his nuclear stress test was intermediate risk. He has followed up with Dr. La. He did see Dr. La on 02/15/2018. At that time, he was told by Dr. La that his chest pain was related to his stomach hitting the bottom of his heart per the patient and that he also was in atrial fibrillation. On 02/15/2018, he was started on Eliquis 5 mg p.o. b.i.d. The patient states that he became nervous when he took his blood pressure several times in a row and each time that it was different, so he came to the emergency room for further evaluation. He became upset and nervous about his blood pressure fluctuating. He reports that when his blood pressure was high, he took hawthorn knight as well as his lisinopril. While in the emergency room, he had routine lab work done and a chest x-ray. The chest x-ray findings were consistent with COPD, no evidence of acute findings. His electrocardiogram showed AFib at a rate of 84. The patient denies any recent fever. He denies any nausea, vomiting, or recent ill contacts. He reports that these episodes are all similar to all of his prior episodes and there has been no change in any of the characteristics. PAST MEDICAL HISTORY: 1. MRSA bacteremia in 2016. 2. Obstructive sleep apnea, on BiPAP at night. 3. Diabetes. 4. BPH. 5. Morbid obesity. 6. Chronic back pain. 7. Arthritis. 8. Vertigo. 9. Hypertension. 10. Hypothyroidism. 11. Asthma. 12. Osteomyelitis, status post right third toe amputation. 13. Prostatectomy. HOME MEDICATIONS: 1. Lasix 20 mg p.o. daily. 2. Benadryl 25 mg p.o. p.r.n. 3. Synthroid 112 mcg p.o. daily. 4. Aspirin 81 mg p.o. daily. 5. Albuterol 1 puff b.i.d. p.r.n. 6. Amlodipine 5 mg p.o. daily. 7. Metformin 1500 mg p.o. daily. 8. Flomax 0.4 mg p.o. daily. 9. Eliquis 5 mg p.o. b.i.d. ALLERGIES: 1. HORSE DANDER. 2. HORSE/ EQUINE CONTAINING PRODUCTS. 3. PEANUTS. 4. PEANUT OIL. 5. PENICILLINS. FAMILY HISTORY: Mother of liver cancer. Father from [place]. The patient states that he has been screened. SOCIAL HISTORY: The patient is independent on his ADLs, ambulates with a cane. He does report that he smoked in his 20s for 5 years. Denies any alcohol or drug use. His healthcare proxy is his , Dede. His code status is full code. REVIEW OF SYSTEMS: General: He denies any fever. He does report intermittent chills that have been unchanged for 6 months. He denies any unintended weight loss. Cardiac: He does report some chest pain that is intermittent. No change from his previous pain stating that this has been going on for several months. Respiratory: Denies any cough or congestion. Denies any rhinorrhea. He did report shortness of breath prior to admission to the emergency room that has now subsided. Denies any nausea, vomiting or diarrhea. Denies any abdominal pain. Denies any dysuria or hematuria. Neuro: Denies any focal weakness or sensory loss. Eyes: No acute visual changes. ENT: No dysphagia. Musculoskeletal: No arthralgias or myalgias. Skin: He reports that he has had an entire body rash x1 year, but no change. Psych: Denies any depression or anxiety. PHYSICAL EXAM: Vital signs are as follows: Blood pressure 129/82, heart rate is 77, respirations are 16, O2 saturation is 96%. General: Mr. Pierce is sitting up in the bed. He is in no acute distress. Neuro: He is alert and oriented x3. He is able to move all extremities equally. There is no focal weakness. Extraocular movements are intact. Heart: S1, S2. No murmurs, rubs , or gallops. The rate is irregular. Lungs: Lungs are clear to auscultation bilaterally. There is no accessory muscle use. There is good aeration. Abdomen is obese, soft, nontender with bowel sounds are positive x4. Extremities: There is no cyanosis or edema. Skin: He has generalized erythema on his entire body with small scabbed area noted to his lower extremities that is chronic, it has been that way for over a year. LABORATORY DATA: WBCs were 13.7, he has had leukocytosis on 01/30/17, he has had leukocytosis over the range of 11.6 to 17.9. WBCs were 4.8, hemoglobin was 13.8, hematocrit was 43, platelet count was 304. INR was 1.09, APTT was 30.9. D-dimer was less than 200. Sodium was 140, potassium 4.2, chloride 107, carbon dioxide was 24, anion gap of 9, BUN was 20, creatinine 1.16, glucose was 132, lactic acid was 2.5. On his admission 01/14/18, his lactic acid was 2.4. C- reactive protein was 6.52. TSH was 3.10. His troponin was negative at 0.01. IMPRESSION AND PLAN: Mr. Pierce is a 77-year-old male with past medical history of MRSA in 2016, obstructive sleep apnea, diabetes, benign prostatic hypertrophy , chronic back pain, arthritis, vertigo, hypertension, hypothyroid, asthma, diabetes, and osteomyelitis, who presented to the emergency room with shortness of breath. At this time, Mr. Pierce's symptoms have all resolved. He recently was admitted to our facility in January of 2018 and had a full cardiac workup at that time and was discharged. He had a nuclear stress test that was intermediate risk. He did follow up with Dr. La on 02/15/18. At that time, he was found to be in atrial fibrillation and he was placed on Eliquis and was told that his chest pain could be related to his stomach pushing near his heart. Mr. Pierce reports that these symptoms that he had today are no different than the symptoms that he has had on all of the prior episodes he has had. He reports that everything has resolved and he would like to go home. My recommendation is to repeat his troponin in 3 hours. Pending that troponin, if it is negative, he may be discharged to home. 1. I recommend that he follow up with Dr. La and call his office. 2. I recommend that he stop taking hawthorn knight and continue his lisinopril at 20 mg for his hypertension control. 3. For his atrial fibrillation, I recommend that he continue his Eliquis. He is currently rate controlled right now. There is no RVR. His rate in the emergency room was 84. At this time, Mr. Pierce is stable for discharge home. He should follow up with Dr. La and his primary care provider. He was also instructed to return to the emergency room for any increased chest pain or shortness breath or any other concerning symptoms. TIME SPENT: Time spent on this consultation was approximately 45 minutes, more than half of that time spent with the patient at the bedside reviewing events leading up to his emergency room visit, performing physical exam, and reviewing my plan of care. I have discussed this plan with Dr. Hensley his Emergency room attending and he will discharge the patient pending second troponin level. I have discussed this plan of care with my attending, Dr. Madelyn Hale, and she is in agreement with my plan. ANAYELI BROOKE, BRIANA [id number]/[facility] #: [id number] CHAZ
== END 2018-02-21 21:01 | disposition home or self-care (01) ==
LOC: ED 15:38 → UNDOADMOB 17:21 → MEDTELE 17:21
DX: R07.9 Chest pain, unspecified (principal); R06.00 Dyspnea, unspecified; Z87.891 Personal history of nicotine dependence; Z88.0 Allergy status to penicillin
CPT/HCPCS: 36415; 71046; 80053; 82550; 82553; 83605; 83735; 83880; 84443; 84484; 85025; 85379; 85610; 85730; 86140; 93005; 99284; A9270-GY

== ENCOUNTER 2018-04-01 09:09 | Emergency (ER) | payer MEDICARE ==
[2018-04-01] MEDS ORDERED: traMADol TAB* 50 MG PO ONE (09:42)
--- NOTE | 2018-04-01 10:14 | RAD ---
INDICATION: Atraumatic right clavicular pain COMPARISON: None TECHNIQUE: AP views of the clavicle were obtained FINDINGS: There is no acute clavicular fracture. There is minor a.c. and glenohumeral osteoarthritis IMPRESSION: NO ACUTE FINDINGS.
--- NOTE | 2018-04-01 10:14 | RAD ---
INDICATION: Chest pain COMPARISON: February 21, 2018 TECHNIQUE: PA and lateral dual-energy views were obtained. FINDINGS: Bones/Soft Tissues: There are no acute bony findings. Cardiomediastinal: The cardiomediastinal silhouette is normal. Lungs: There are no infiltrates. There is hyperinflation. Pleura: There are no pleural effusions. Other: None IMPRESSION: HYPERINFLATION. NO ACTIVE DISEASE.
[2018-04-01 10:49] LABS: Hematocrit 37 % (42-52); Hemoglobin 12.3 g/dl (14.0-18.0); Mean Corpuscular HGB Conc 33 g/dl (31-36); Mean Corpuscular Hemoglobin 30 pg (27-31); Mean Corpuscular Volume 92 fL (80-94); Mean Platelet Volume 6.8 um3 (7.4-10.4); Platelet Count 516 10^3/ul (150-450); Red Blood Count 4.06 10^6/ul (4.0-5.4); Red Cell Distribution Width 15 % (10.5-15); White Blood Count 15.1 10^3/ul (3.5-10.8)
[2018-04-01 11:11] LABS: ABS Basophils 0.1 10^3/ul (0-0.2); ABS Eosinophils 2.1 10^3/ul (0-0.6); ABS Lymphocytes 1.4 10^3/ul (1.0-4.8); ABS Monocytes 1.4 10^3/ul (0-0.8); ABS Neutrophils 10.1 10^3/ul (1.5-7.7); ABS Nucleated RBC 0 10^3/ul; Eosinophil % 13.8 % (0-6); Lymphocyte % 9.3 % (25-47); Nucleated Red Blood Cells % 0
[2018-04-01 11:51] VITALS: BP 135/73
--- NOTE | 2018-04-01 11:59 | ED ---
Joao Cuba Gabriel, scribed for Rikki Dolan on 04/01/18 at 0942 . Upper Extremity Pain - HPI Summary HPI Summary: This patient is a 77 year old M presenting to [facility] with a chief complaint of left clavicular pain that has gotten worse today. The patient states he has a chronic lump that began due to cane use on that side but it is usually asymptomatic. The patient rates the pain 8/10 in severity. Patient denies ABD pain, fever, and cough. - History of Current Complaint Chief Complaint: EDShouldJanevicNa Stated Complaint: RT SHOULDER INJURY Time Seen by Provider: 04/01/18 09:23 Hx Obtained From: Patient Mechanism Of Injury: Other - walking with cane Onset/Duration: Still Present Timing: Constant Severity Initially: Moderate Severity Currently: Severe Associated Signs & Symptoms: Positive: Negative - ABD pain, fever, and cough. - Allergies/Home Medications Allergies/Adverse Reactions: Allergies Allergy/AdvReac Type Severity Reaction Status Date / Time feathers Allergy Difficulty Verified 04/01/18 09:27 Breathing/Wheezing horse dander Allergy Difficulty Verified 04/01/18 09:27 Breathing/Wheezing Horse/Equine Containing Allergy Difficulty Verified 04/01/18 09:27 Products Breathing/Wheezing peanut Allergy Difficulty Verified 04/01/18 09:27 Breathing/Wheezing peanut oil Allergy Difficulty Verified 04/01/18 09:27 Breathing/Wheezing Penicillins Allergy Difficulty Verified 04/01/18 09:27 Breathing/Wheezing Home Medications: Home Medications Apixaban* [Eliquis*] 5 mg PO BID 04/01/18 [History Confirmed 04/01/18] Lisinopril TAB* [Prinivil TAB*] 20 mg PO DAILY 04/01/18 [History Confirmed 04/01] Metoprolol Succinate XL TAB* [Toprol XL TAB*] 25 mg PO DAILY 04/01/18 [History Confirmed 04/01/18] Montelukast Sodium TAB* [Singulair TAB*] 10 mg PO DAILY 04/01/18 [History Confirmed 04/01/18] Sulfamethox/Trimethoprim DS* [Bactrim DS 800/160 TAB*] 1 tab PO BID 04/01/18 [ History Confirmed 04/01/18] PMH/Surg Hx/FS Hx/Imm Hx Endocrine/Hematology History: Reports: Hx Diabetes Cardiovascular History: Reports: Hx Angina, Hx Atrial Fibrillation, Hx Hypercholesterolemia, Hx Hypertension Denies: Hx Congestive Heart Failure, Hx Coronary Artery Disease, Hx Myocardial Infarction, Hx Pacemaker/ICD, Hx Valvular Heart Disease Respiratory History: Reports: Hx Asthma, Hx Chronic Obstructive Pulmonary Disease (COPD), Hx Sleep Apnea - bipap at night GI History: Reports: Hx Gastroesophageal Reflux Disease History: Reports: Other Problems/Disorders - urinary retention & turp Denies: Hx Renal Disease Sensory History: Reports: Hx Contacts or Glasses - for reading Denies: Hx Hearing Aid Opthamlomology History: Reports: Hx Contacts or Glasses - for reading Neurological History: Reports: Other Neuro Impairments/Disorders - le neuropathy Psychiatric History: Denies: Hx Panic Disorder - Surgical History Surgery Procedure, Year, and Place: turp @ [facility] [place] 2012; cataract right eye - Immunization History Date of Tetanus Vaccine: Within 10 years Date of Influenza Vaccine: 2011 Infectious Disease History: Yes Infectious Disease History: Reports: Hx Clostridium Difficile, Hx of Known/ Suspected MRSA - 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, not active, Hx Shingles - not active Denies: Traveled Outside the [place] in Last 30 Days - Family History Known Family History: Negative: Cardiac Disease, Diabetes Family History: R& n/C - Social History Alcohol Use: None Hx Substance Use: No Substance Use Type: Reports: None Hx Tobacco Use: Yes Smoking Status (MU): Former Smoker Review of Systems Negative: Fever Negative: Cough Negative: Abdominal Pain Positive: Other - left clav pain All Other Systems Reviewed And Are Negative: Yes Physical Exam - Summary Physical Exam Summary: Appearance: Well appearing, no pain distress Skin: warm, dry, reflects adequate perfusion Head/face: normal Eyes: EOMI, JONATHON ENT: normal Neck: supple, non-tender Respiratory: CTA, breath sounds present Cardiovascular: RRR, pulses symmetrical Abdomen: non-tender, soft Bowel: present Musculoskeletal: Tender over medial aspect of the clavicle Neuro: normal, sensory motor intact, A&Ox3 Triage Information Reviewed: Yes Vital Signs On Initial Exam: Initial Vitals Temp Pulse Resp BP Pulse Ox 97.4 F 68 22 163/66 98 04/01/18 09:27 04/01/18 09:27 04/01/18 09:27 04/01/18 09:27 04/01/18 09:27 Vital Signs Reviewed: Yes Diagnostics - Vital Signs Vital Signs Temp Pulse Resp BP Pulse Ox 04/01/18 09:27 97.4 F 68 22 163/66 98 - Laboratory Lab Results: Lab Results 04/01/18 04/01/18 Range/Units 10:38 10:38 WBC 15.1 H (3.5-10.8) 10^3/ul RBC 4.06 (4.0-5.4) 10^6/ul Hgb 12.3 L (14.0-18.0) g/dl Hct 37 L (42-52) % MCV 92 (80-94) fL MCH 30 (27-31) pg MCHC 33 (31-36) g/dl RDW 15 (10.5-15) % Plt Count 516 H (150-450) 10^3/ul MPV 6.8 L (7.4-10.4) um3 Neut % (Auto) 67.1 (38-83) % Lymph % (Auto) 9.3 L (25-47) % [place] % (Auto) 9.2 H (0-7) % Eos % (Auto) 13.8 H (0-6) % Baso % (Auto) 0.6 (0-2) % Absolute Neuts (auto) 10.1 H (1.5-7.7) 10^3/ul Absolute Lymphs (auto) 1.4 (1.0-4.8) 10^3/ul Absolute Monos (auto) 1.4 H (0-0.8) 10^3/ul Absolute Eos (auto) 2.1 H (0-0.6) 10^3/ul Absolute Basos (auto) 0.1 (0-0.2) 10^3/ul Absolute Nucleated RBC 0 10^3/ul Nucleated RBC % 0 Sodium 136 L (139-145) mmol/L Potassium 4.1 (3.5-5.0) mmol/L Chloride 106 (101-111) mmol/L Carbon Dioxide 21 L (22-32) mmol/L Anion Gap 9 (2-11) mmol/L BUN 19 (6-24) mg/dL Creatinine 1.20 H (0.67-1.17) mg/dL Est GFR ( Amer) 75.9 (>60) Est GFR (Non-Af Amer) 59.0 (>60) BUN/Creatinine Ratio 15.8 (8-20) Glucose 145 H (70-100) mg/dL Calcium 8.9 (8.6-10.3) mg/dL Total Bilirubin 0.30 (0.2-1.0) mg/dL AST 18 (13-39) U/L ALT 14 (7-52) U/L Alkaline Phosphatase 40 (34-104) U/L Troponin I 0.00 (<0.04) ng/mL Total Protein 7.1 (6.4-8.9) g/dL Albumin 3.2 (3.2-5.2) g/dL Globulin 3.9 (2-4) g/dL Albumin/Globulin Ratio 0.8 L (1-3) Result Diagrams: 04/01/18 10:38 04/01/18 10:38 Lab Statement: Any lab studies that have been ordered have been reviewed, and results considered in the medical decision making process. - Radiology CXR Radiology Interpretation Completed By: Radiologist - HYPERINFLATION. NO ACTIVE DISEASE. ED physician has reviewed this radiology report. clav xray Radiology Interpretation Completed By: Radiologist - NO ACUTE FINDINGS. ED physician has reviewed this radiology report. - EKG 1029 Cardiac Rate: NL EKG Rhythm: Sinus Rhythm - at 85 BPM EKG Interpretation: no acute changes Course/Dx - Course Assessment/Plan: This patient is a 77 year old M presenting to [facility] with a chief complaint of left clavicular pain that has gotten worse today. The patient states he has a chronic lump that began due to cane use on that side but it is usually asymptomatic. The patient rates the pain 8/10 in severity. Patient denies ABD pain, fever, and cough. An EKG reveals no acute changes. CXR reveals, per radiologist, HYPERINFLATION. NO ACTIVE DISEASE. Clavicle xray reveals, per radiologist, NO ACUTE FINDINGS. Bloodwork obtained. In the ED course the patient was given ultram. Dx clavicle pain and right sided CP. Patient will be discharged and follow up from PCP. The patient is agreeable with this plan. - Diagnoses Differential Diagnosis/HQI/PQRI: Positive: Bursitis, Contusion, Fracture (Closed ), Strain, Sprain Provider Diagnoses: Clavicle pain, Right-sided chest pain Discharge - Sign-Out/Discharge Documenting (check all that apply): Discharge/Admit/Transfer - Discharge Plan Condition: Stable Disposition: HOME Prescriptions: Tramadol HCl [Ultram] 50 mg PO TID #10 tablet MDD 3 Patient Education Materials: Musculoskeletal Pain (ED), Chest Wall Pain (ED) Referrals: Session Norbert CHAND [Primary Care Provider] - 3 Days Additional Instructions: RETURN TO THE ER FOR ANY NEW OR WORSENING SYMPTOMS - Billing Disposition and Condition Condition: STABLE Disposition: HOME The documentation as recorded by the Joao aiken Gabriel accurately reflects the service I personally performed and the decisions made by Magdaleno cisneros Emmanuel.
== END 2018-04-01 11:50 | disposition home or self-care (01) ==
LOC: ED 09:09
DX: M25.512 Pain in left shoulder (principal); R07.9 Chest pain, unspecified; R91.8 Other nonspecific abnormal finding of lung field; Z87.891 Personal history of nicotine dependence; Z88.0 Allergy status to penicillin
CPT/HCPCS: 36415; 71046; 80053; 84484; 85025; 93005; 99282; A9270-GY

== ENCOUNTER 2018-04-03 12:06 | Observation (INO) | payer MEDICARE ==
[2018-04-03 13:25] LABS: ABS Basophils 0.1 10^3/ul (0-0.2); ABS Eosinophils 1.9 10^3/ul (0-0.6); ABS Lymphocytes 1.5 10^3/ul (1.0-4.8); ABS Monocytes 1.4 10^3/ul (0-0.8); ABS Neutrophils 8.9 10^3/ul (1.5-7.7); ABS Nucleated RBC 0 10^3/ul; Eosinophil % 13.9 % (0-6); Hematocrit 39 % (42-52); Hemoglobin 12.9 g/dl (14.0-18.0); Lymphocyte % 10.6 % (25-47); Mean Corpuscular HGB Conc 33 g/dl (31-36); Mean Corpuscular Hemoglobin 30 pg (27-31); Mean Corpuscular Volume 93 fL (80-94); Nucleated Red Blood Cells % 0; Platelet Count 554 10^3/ul (150-450); Red Blood Count 4.23 10^6/ul (4.0-5.4); Red Cell Distribution Width 15 % (10.5-15); White Blood Count 13.8 10^3/ul (3.5-10.8)
--- NOTE | 2018-04-03 13:33 | RAD ---
INDICATION: Infection. TECHNIQUE: 3 views of the left foot were obtained. FINDINGS: There is diffuse soft tissue swelling which is most prominent along the dorsal aspect of the foot. No erosive change or periosteal reaction is noted. There is moderate osteoarthritic change in the first metatarsal-phalangeal joint. IMPRESSION: SOFT TISSUE SWELLING, NO SPECIFIC EVIDENCE FOR OSTEOMYELITIS. IF THERE IS A HIGH INDEX OF SUSPICION FOR OSTEOMYELITIS CONSIDER AN MRI OF THE FOOT WITHOUT CONTRAST OR A THREE-PHASE BONE SCAN.
[2018-04-03 13:36] LABS: EGFR Non-African American 61.4 (>60); Uric Acid 9.3 mg/dL (4.4-7.6)
[2018-04-03] MEDS ORDERED: Vancomycin(*) 1,500 MG in NS 0.9% 250 ML* 250 ML IVPB ONE (14:30)
[2018-04-03] MEDS ORDERED: Cefepime 2 GM in Dextrose(*) 2 GM/50 ML BAG IV ONE (14:37)
--- NOTE | 2018-04-03 14:41 | ED ---
Lower Extremity - HPI Summary HPI Summary: Patient is a 77-year-old now who presents emergency department for redness and swelling to his left third toe 2 days. Patient has a past medical history of diabetes, A. fib, obesity, cholesterol, hypertension, COPD, hypothyroidism. Patient states that he Is on his last day of Bactrim for infection to his left lower leg. He denies fever, chills, N/V, CP, SOB. Pt. also notes that he has had a "rash"/redness to his entire body for months. Symptoms are moderate in severity. No current modifying factors. 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 Pain Intensity: 0 - Allergies/Home Medications Allergies/Adverse Reactions: Allergies Allergy/AdvReac Type Severity Reaction Status Date / Time feathers Allergy Difficulty Verified 04/01/18 09:27 Breathing/Wheezing horse dander Allergy Difficulty Verified 04/01/18 09:27 Breathing/Wheezing Horse/Equine Containing Allergy Difficulty Verified 04/01/18 09:27 Products Breathing/Wheezing peanut Allergy Difficulty Verified 04/01/18 09:27 Breathing/Wheezing peanut oil Allergy Difficulty Verified 04/01/18 09:27 Breathing/Wheezing Penicillins Allergy Difficulty Verified 04/01/18 09:27 Breathing/Wheezing Home Medications: Home Medications hydrOXYzine HCL TAB* [Atarax 25 MG TAB*] 25 mg PO BID PRN 04/03/18 [History Confirmed 04/03/18] traMADol TAB* [Ultram*] 50 mg PO TID PRN MDD p 04/03/18 [History Confirmed 04/03] PMH/Surg Hx/FS Hx/Imm Hx Previously Healthy: No Endocrine/Hematology History: Reports: Hx Diabetes Cardiovascular History: Reports: Hx Angina, Hx Atrial Fibrillation, Hx Hypercholesterolemia, Hx Hypertension Denies: Hx Congestive Heart Failure, Hx Coronary Artery Disease, Hx Myocardial Infarction, Hx Pacemaker/ICD, Hx Valvular Heart Disease Respiratory History: Reports: Hx Asthma, Hx Chronic Obstructive Pulmonary Disease (COPD), Hx Sleep Apnea - bipap at night GI History: Reports: Hx Gastroesophageal Reflux Disease History: Reports: Other Problems/Disorders - urinary retention & turp Denies: Hx Renal Disease Sensory History: Reports: Hx Contacts or Glasses - for reading Denies: Hx Hearing Aid Opthamlomology History: Reports: Hx Contacts or Glasses - for reading Neurological History: Reports: Other Neuro Impairments/Disorders - le neuropathy Psychiatric History: Denies: Hx Panic Disorder - Surgical History Surgery Procedure, Year, and Place: turp @ [facility] [place] 2012; cataract right eye - Immunization History Date of Tetanus Vaccine: Within 10 years Date of Influenza Vaccine: 2011 Infectious Disease History: No Infectious Disease History: Reports: Hx Clostridium Difficile, Hx of Known/ Suspected MRSA - 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, not active, Hx Shingles - not active Denies: Traveled Outside the [place] in Last 30 Days - Family History Known Family History: Positive: None Negative: Cardiac Disease, Diabetes Family History: R& n/C - Social History Occupation: Retired Lives: With Family Alcohol Use: None Hx Substance Use: No Substance Use Type: Reports: None Hx Tobacco Use: Yes Smoking Status (MU): Former Smoker Review of Systems Constitutional: Negative Cardiovascular: Negative Respiratory: Negative Gastrointestinal: Negative Negative: Vomiting, Nausea Positive: Other - Swelling and redness to left lower leg Positive: Other Neurological: Negative All Other Systems Reviewed And Are Negative: Yes Physical Exam Triage Information Reviewed: Yes Vital Signs On Initial Exam: Initial Vitals Temp Pulse Resp BP Pulse Ox 98 F 71 18 126/81 97 04/03/18 12:24 04/03/18 12:24 04/03/18 12:24 04/03/18 12:24 04/03/18 12:24 Vital Signs Reviewed: Yes Appearance: Positive: No Pain Distress - Pt. sitting on side of bed in NAD. present. Skin: Positive: Warm Head/Face: Positive: Normal Head/Face Inspection Eyes: Positive: Normal Neck: Positive: Supple Musculoskeletal: Positive: Other - Circumferential erythema and edema noted to the third digit of the left foot. No wounds to foot noted. Mild erythema and edema extends to the dorsum of the left foot. Faint reddening of skin noted throughout. I cannot palpate a pedal pulse. Neurological: Positive: Normal, CN Intact II-III Psychiatric: Positive: Normal Diagnostics - Vital Signs Vital Signs Temp Pulse Resp BP Pulse Ox 04/03/18 12:24 98 F 71 18 126/81 97 - Laboratory Lab Results: Lab Results 04/03/18 04/03/18 04/03/18 Range/Units 12:54 12:55 12:56 WBC 13.8 H (3.5-10.8) 10^3/ul RBC 4.23 (4.0-5.4) 10^6/ul Hgb 12.9 L (14.0-18.0) g/dl Hct 39 L (42-52) % MCV 93 (80-94) fL MCH 30 (27-31) pg MCHC 33 (31-36) g/dl RDW 15 (10.5-15) % Plt Count 554 H (150-450) 10^3/ul MPV 7.0 L (7.4-10.4) um3 Neut % (Auto) 64.4 (38-83) % Lymph % (Auto) 10.6 L (25-47) % Hendry % (Auto) 10.3 H (0-7) % Eos % (Auto) 13.9 H (0-6) % Baso % (Auto) 0.8 (0-2) % Absolute Neuts (auto) 8.9 H (1.5-7.7) 10^3/ul Absolute Lymphs (auto) 1.5 (1.0-4.8) 10^3/ul Absolute Monos (auto) 1.4 H (0-0.8) 10^3/ul Absolute Eos (auto) 1.9 H (0-0.6) 10^3/ul Absolute Basos (auto) 0.1 (0-0.2) 10^3/ul Absolute Nucleated RBC 0 10^3/ul Nucleated RBC % 0 Sodium 134 L (139-145) mmol/L Potassium 4.5 (3.5-5.0) mmol/L Chloride 103 (101-111) mmol/L Carbon Dioxide 25 (22-32) mmol/L Anion Gap 6 (2-11) mmol/L BUN 15 (6-24) mg/dL Creatinine 1.16 (0.67-1.17) mg/dL Est GFR ( Amer) 78.9 (>60) Est GFR (Non-Af Amer) 61.4 (>60) BUN/Creatinine Ratio 12.9 (8-20) Glucose 119 H (70-100) mg/dL Lactic Acid 1.6 (0.5-2.0) mmol/L Uric Acid 9.3 H (4.4-7.6) mg/dL Calcium 8.7 (8.6-10.3) mg/dL Total Bilirubin 0.40 (0.2-1.0) mg/dL AST 20 (13-39) U/L ALT 13 (7-52) U/L Alkaline Phosphatase 50 (34-104) U/L C-Reactive Protein 32.08 H (< 5.00) mg/L Total Protein 7.4 (6.4-8.9) g/dL Albumin 3.4 (3.2-5.2) g/dL Globulin 4.0 (2-4) g/dL Albumin/Globulin Ratio 0.9 L (1-3) Result Diagrams: 04/03/18 12:56 04/03/18 12:54 Lab Statement: Any lab studies that have been ordered have been reviewed, and results considered in the medical decision making process. Lower Extremity Course/Dx - Course Course Of Treatment: Patient presenting for evaluation of infection to left third toe and lower extremity. He is afebrile stable vital signs. Labs and cultures were obtained as well as x-ray. CBC shows an elevated WBC of 13.8. Uric acid elevated at 9.3. CRP elevated at 32. Lactic acid is normal. Pending cultures. Foot x-ray shows soft tissue edema without definitive signs of osteomyelitis, per radiology. Patient was examined by Dr. Nix as well who recommends admission for IV antibiotics given his failure of outpatient oral antibiotics. IV vancomycin and cefepime ordered. I spoke with hospitalist, Dr. Hale, who has accepted pt. to her service. - Diagnoses Differential Diagnosis/HQI/PQRI: Positive: Cellulitis, Fracture (Closed), Gout, Infection, Osteomyelitis Provider Diagnoses: Cellulitis, toe, Lower extremity cellulitis Discharge - Sign-Out/Discharge Documenting (check all that apply): Discharge/Admit/Transfer - Discharge Plan Condition: Stable Disposition: ADMITTED TO [facility] Referrals: Norbert King [Primary Care Provider] - - Billing Disposition and Condition Condition: STABLE Disposition: [facility] [place]
[2018-04-03] MEDS ORDERED: LORazepam TAB(*) 1 MG PO ONE (16:23)
[2018-04-03] MEDS ORDERED: Acetaminophen TAB* 325 MG PO PRN (16:38)
[2018-04-03] MEDS ORDERED: Dextrose 50% Syringe 50 ML* 25 GM/50 ML SYRINGE IV PUSH PRN (16:41)
[2018-04-03] MEDS ORDERED: Albuterol HFA INHALER* 8 gm MDI INH PRN (16:52)
[2018-04-03] MEDS ORDERED: traMADol TAB* 50 MG PO PRN (16:52)
[2018-04-03] MEDS ORDERED: diPHENhydraMINE PO* 25 MG PO PRN (16:52)
[2018-04-03] MEDS ORDERED: Vancomycin(*) 1,000 MG in NS 0.9% 250 ML* 250 ML IVPB SCH (17:00)
[2018-04-03] MEDS ORDERED: Vancomycin per Pharmacy* NOTE FOLLOW UP PRN (18:20)
--- NOTE | 2018-04-03 19:11 | ED ---
Elmer Cuba Angela, scribed for Mark Nix MD on 04/03/18 at 1717 . Progress - Progress Note Progress Note: EUNICE Moon has asked me to see this pt. Pt is a 77 y/o male presenting to [facility] c/o bilateral leg swelling and redness, left more than right, for the past 2 days. Today pt reports he has had increased swelling and weeping, especially from the left second toe. Patient states that he is on his last day of Bactrim for infection to his left lower leg. Physical exam: VITAL SIGNS: Reviewed. GENERAL: Patient is a well-developed and nourished male who is lying comfortable in the stretcher. Patient is not in any acute respiratory distress. HEAD AND FACE: No signs of trauma. No ecchymosis, hematomas or skull depressions. No sinus tenderness. EYES: PERRLA, EOMI x 2, No injected conjunctiva, no nystagmus. EARS: Hearing grossly intact. Ear canals and tympanic membranes are within normal limits. MOUTH: Oropharynx within normal limits. NECK: Supple, trachea is midline, no adenopathy, no JVD, no carotid bruit, no c- spine tenderness, neck with full ROM. CHEST: Symmetric, no tenderness at palpation LUNGS: Clear to auscultation bilaterally. No wheezing or crackles. CVS: Regular rate and rhythm, S1 and S2 present, no murmurs or gallops appreciated. ABDOMEN: Soft, non-tender. No signs of distention. No rebound no guarding, and no masses palpated. Bowel sounds are normal. EXTREMITIES: FROM in all major joints, no cyanosis or clubbing. Bilateral lower extremity edema and erythema. Left second toe with positive tenderness. NEURO: Alert and oriented x 3. No acute neurological deficits. Speech is normal and follows commands. SKIN: Dry and warm. Course/Dx - Course Course Of Treatment: The blood work was reviewed as well as the left foot XR. I agree with Ms. Rangel that the pt needs to be admitted for IV antibiotics and treatment for cellulitis, to rule out osteomyelitis. Ms. Rangel will continue to care for this pt. My advice is to admit the pt to the hospitalist for further work up and management. - Diagnoses Provider Diagnoses: Cellulitis, Cellulitis, toe, Lower extremity cellulitis Discharge - Sign-Out/Discharge Documenting (check all that apply): Discharge/Admit/Transfer - Admit - Discharge Plan Condition: Stable Disposition: ADMITTED TO [facility] The documentation as recorded by the Elmer aiken Angela accurately reflects the service I personally performed and the decisions made by me, Mark Nix MD.
--- NOTE | 2018-04-03 20:59 | RAD ---
HISTORY: Left foot second toe. Rule out osteomyelitis COMPARISONS: Plain film dated April 03, 2018 TECHNIQUE: The following sequences were obtained of the left foot: Coronal, sagittal, and axial T1-weighted and STIR images. FINDINGS: The study is markedly limited by patient motion artifact. BONES: Evaluation is limited secondary to extensive patient motion artifact. There is questionable elevated STIR signal within the middle and distal phalanges of the second digit. JOINTS: There is no arthropathy. MUSCULATURE: Unremarkable ALIGNMENT: There is no dislocation. SOFT TISSUES: There is edema of the forefoot, most pronounced along the dorsal surface of the distal second digit. OTHER FINDINGS: None. IMPRESSION: MARKEDLY LIMITED STUDY. THERE IS QUESTIONABLE ELEVATED SIGNAL WITHIN THE MIDDLE AND DISTAL PHALANGES OF THE SECOND DIGIT WHICH WOULD SUGGEST OSTEOMYELITIS IN THE CORRECT CLINICAL SETTING.
[2018-04-03] MEDS: Insulin LISPRO* 1 UNITS UNIT SUBCUT SCH (21:09)
[2018-04-03] MEDS: Apixaban* 5 MG TAB PO SCH (21:11)
[2018-04-03] MEDS: hydrOXYzine HCL TAB* 25 MG PO PRN (21:50)
--- NOTE | 2018-04-04 00:52 | HP ---
CC: EUNICE Blackwell; Dr. Aleman * HISTORY AND PHYSICAL: DATE OF ADMISSION: 04/03/18 PRIMARY CARE PROVIDER: EUNICE Blackwell CHIEF COMPLAINT: Left second toe warm and swollen. HISTORY OF PRESENT ILLNESS: Norbert Pierce is a 77-year-old male with history of recurrent MSSA bacteremia in 2016. The patient has a history of diabetes, obstructive sleep apnea, osteomyelitis of the right third toe, status post amputation in the past, and eczema that has been bothering him for the past several months, who today presents complaining of left second toe edema, swelling, and erythema. The patient stated it started all of a sudden 2 days ago. The patient is a very poor historian. He stated that he had been seeing Dr. Aleman, who prescribed him recently antibiotics, but Dr. Aleman did not see him since his last hospital stay. The patient stated that he had been prescribed antibiotics that he has not very sure which doctor prescribed him the antibiotics and for how long. He is not sure why he is taking the antibiotics and he told me that he takes the antibiotics for atrial fibrillation. Overall, the understanding of the patient of his current medical condition and treatment is very poor and that is consistent with his prior presentations. The patient is going to be admitted to the hospital with the diagnosis of left second toe cellulitis and likely osteomyelitis. PAST MEDICAL HISTORY: 1. History of methicillin-sensitive Staphylococcus aureus bacteremia in 2016 twice. 2. History of obstructive sleep apnea, on BiPAP at night. 3. Diabetes type 2. 4. BPH. 5. Morbid obesity. 6. Chronic back pain. 7. Arthritis. 8. Vertigo. 9. Hypertension. 10. Hypothyroidism. 11. History of asthma. 12. Osteomyelitis, status post right toe amputation for it. 13. Status post prostatectomy. 14. Recent evaluation and treatment for eczema, that is generalized eczema for the past several months. 15. History of paroxysmal atrial fibrillation. CURRENT MEDICATIONS: Include: 1. Albuterol inhaler 1 puff every 4 hours p.r.n. 2. Ultram 50 mg 3 times a day p.r.n. 3. Hydroxyzine 25 mg b.i.d. p.r.n. 4. Benadryl 25 mg daily p.r.n. 5. Amlodipine 5 mg daily. 6. Flomax 0.4 mg daily. 7. Bactrim DS 1 tablet daily. 8. Singulair 10 mg daily. 9. Metoprolol succinate 25 mg daily. 10. Metformin ER 1500 mg daily. 11. Lisinopril 20 mg daily. 12. Levothyroxine 112 mcg daily. 13. Furosemide 40 mg daily. 14. Aspirin 81 mg daily. 15. Eliquis 5 mg b.i.d. ALLERGIES: Includes multiple environmental allergies include FEATHER, HORSE DANDER, PEANUTS. The patient is also allergic to PENICILLINS that cause wheezing. FAMILY HISTORY: Positive for mother of liver cancer. Father from abdominal aortic aneurysm. SOCIAL HISTORY: The patient ambulates with a cane at baseline. He smoked remotely. He denies any alcohol or drug use. His healthcare proxy is his , Dede. He is a full code. REVIEW OF SYSTEMS: Please see history of present illness. The patient stated that his generalized rash that had been bothering him for close to a year has been improving with the use of the lotions and I believe he just uses moisturizers. The patient had been a very poor historian. He stated that he has lost weight recently and from evaluation in 2016, his weight was approximately 340 pounds and today is 265, which is consistent with prior weights in the past 6 months from prior hospital stays. The patient denies any chest pain or shortness of breath. He states that when he gets in atrial fibrillation which he apparently feels, he feels very cold. He also complains of feeling cold right now, but it is cold not the atrial fibrillation kind of cold. His left second toe, he noticed that it was red and swollen within the past 48 hours. He stated that due to diabetes, his sensation has increased in bilateral lower extremities and he is unsure how long that had been going on really. The toe is not painful. The patient is also unsure how long he has been on his antibiotics and he thinks that he has taken the antibiotics for his heart. The remaining 12 systems were reviewed with the patient, but once again the relevance is very questionable at this point and was otherwise negative. PHYSICAL EXAMINATION GENERAL: The patient is a very pleasant 77-year-old male, who is in no acute distress. The patient is alert and oriented x2. He is a very poor historian. VITAL SIGNS: Blood pressure of 133/71, heart rate of 71 and regular, respiratory rate 18, oxygen saturation 97% on room air, temperature 98.4. HEENT: Head: Atraumatic, normocephalic. Eyes: Pupils are equal, reactive to light and accommodation. Oropharynx clear. Mucosa moist. NECK: Supple. No JVD. No bruits bilaterally. RESPIRATORY: Clear to auscultation bilaterally. CARDIOVASCULAR: Irregularly irregular rhythm. No murmur. ABDOMEN: Soft, nontender. Bowel sounds are present in all 4 quadrants. EXTREMITIES: There is +1 pitting pedal edema bilaterally, left more than right. There is no clubbing or cyanosis. On the left second toe, it is markedly edematous with erythema and almost clearcut demarcation at the bottom of the toe. The toe was not tender to palpation. The erythema is blanchable. The patient also has what appears to be like venostasis like and chronic eczema like telangiectasias in bilateral lower extremities distally. Those areas are also blanching to palpation. On further evaluation of the skin, the patient has eczema lesions in his calf as that her excoriated. 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 NEURO EVALUATION: Speech clear. Cranial nerves II through XII grossly intact. Motor strength is 5/5 bilaterally. PSYCHIATRIC EVALUATION: There is no evidence of anxiety or depression. The patient is a very poor historian. LABORATORY DATA: White blood cell count of 13.8, hemoglobin 12.8, hematocrit 39, and platelets 554. Sodium 134, potassium 4.5, chloride 103, carbon dioxide 25, BUN 15, creatinine 1.16. Liver function tests were unremarkable. C- reactive protein of 32. Foot x-ray, impression: "Soft tissue swelling. No specific evidence for osteomyelitis. If there is high suspicion osteomyelitis, consider an MRI of the foot without contrast ." ASSESSMENT AND PLAN: 1. Left toe edema and erythema. The differential at this point includes osteomyelitis with cellulitis, although gout is also on the differential. 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 Nevertheless, uric acid is going to be obtained. Due to his history of bacteremia in the past, records are going to be obtained and he is going to be continued to be treated with cefepime and vancomycin that was already ordered in the emergency department. Dr. Aleman to see the patient in consultation. Also, we will ask Orthopedic Surgery to see the patient in consultation. 2. In regards to the patient's diabetes, the patient is going to be placed on insulin sliding scale. His metformin is going to be held. 3. For his hypertension, the patient is going to be continued on his lisinopril as well as Lasix and amlodipine. 4. The patient appears to be in atrial fibrillation at this point and Eliquis is going to be continued. He is rate controlled. 5. For DVT prophylaxis, Eliquis is going to be continued. 6. The patient's code status is full and his surrogate is his . TIME SPENT: Approximately 65 minutes were spent on admission of the patient, more than half of that time was spent in [id number] with the patient during the interview and physical exam. [id number]/[id number] #: [id number] MTDD
[2018-04-04] MEDS: Vancomycin(*) 1,000 MG in NS 0.9% 250 ML* 250 ML IVPB SCH ×2 (00:55→08:25)
[2018-04-04] MEDS ORDERED: Cefepime 1 GM in Dextrose(*) 1 GM/50 ML BAG IV SCH (03:30)
[2018-04-04 05:46] LABS: Hematocrit 38 % (42-52); Hemoglobin 12.6 g/dl (14.0-18.0); Mean Corpuscular HGB Conc 33 g/dl (31-36); Mean Corpuscular Hemoglobin 30 pg (27-31); Mean Corpuscular Volume 92 fL (80-94); Mean Platelet Volume 6.6 um3 (7.4-10.4); Platelet Count 568 10^3/ul (150-450); Red Blood Count 4.15 10^6/ul (4.0-5.4); Red Cell Distribution Width 15 % (10.5-15); White Blood Count 13.2 10^3/ul (3.5-10.8)
[2018-04-04] MEDS ORDERED: Levothyroxine TAB* 112 MCG TAB PO SCH (06:00)
[2018-04-04 06:02] LABS: EGFR Non-African American 65.9 (>60)
[2018-04-04 06:25] LABS: ABS Basophils 0 10^3/ul (0-0.2); ABS Eosinophils 2.3 10^3/ul (0-0.6); ABS Monocytes 1.1 10^3/ul (0-0.8); ABS Neutrophils 8.8 10^3/ul (1.5-7.7); ABS Nucleated RBC 0 10^3/ul; Eosinophil % 17.4 % (0-6); Lymphocyte % 7.8 % (25-47); Nucleated Red Blood Cells % 0
[2018-04-04] MEDS: Insulin LISPRO* 1 UNITS UNIT SUBCUT SCH ×2 (07:35→12:05)
[2018-04-04] MEDS: Apixaban* 5 MG TAB PO SCH (08:04)
[2018-04-04] MEDS: hydrOXYzine HCL TAB* 25 MG PO PRN (08:05)
[2018-04-04] MEDS ORDERED: Aspirin EC TAB* 81 MG TAB.EC PO SCH (09:00)
[2018-04-04] MEDS ORDERED: Furosemide TAB* 40 MG PO SCH (09:00)
[2018-04-04] MEDS ORDERED: Lisinopril TAB* 10 MG PO SCH (09:00)
[2018-04-04] MEDS ORDERED: Tamsulosin CAP* 0.4 MG PO SCH (09:00)
[2018-04-04] MEDS ORDERED: Montelukast Sodium TAB* 10 MG PO SCH (09:00)
[2018-04-04] MEDS ORDERED: Metoprolol Succinate XL TAB* 25 MG PO SCH (09:00)
[2018-04-04] MEDS ORDERED: amLODIPine TAB* 5 MG PO SCH (09:00)
--- NOTE | 2018-04-04 10:41 | PN ---
Subjective Date of Service: 04/04/18 Interval History: Patient seen and examined at bedside. Denies fever, chills, shortness of breath , chest discomfort, N/V/D. Family History: Unchanged from Admission Social History: Unchanged from Admission Past Medical History: Unchanged from Admission Objective Active Medications: Acetaminophen (Tylenol Tab*) 650 mg PO Q4H PRN Reason: FEVER/PAIN Albuterol (Ventolin Hfa Inhaler*) 1 puff INH BID PRN Reason: SHORTNESS OF BREATH Amlodipine Besylate (Norvasc Tab*) 5 mg PO DAILY [facility] Apixaban (Eliquis*) 5 mg PO BID KEE Aspirin (Aspirin Ec Tab*) 81 mg PO DAILY [facility] Dextrose (D50w Syringe 50 Ml*) 12.5 gm IV PUSH .FOR FS < 60 - SS PRN Reason: FS < 60 Diphenhydramine HCl (Benadryl Po*) 25 mg PO DAILY PRN Reason: Allergy Symptoms Furosemide (Lasix Tab*) 40 mg PO DAILY [facility] Hydroxyzine HCl (Atarax Tab*) 25 mg PO BID PRN Reason: ITCHING Cefepime HCl (Maxipime 1 Gm In Dextrose Duplex (*)) 1 gm in 50 mls @ 100 mls/ hr IV Q12H [facility] Vancomycin HCl 1,000 mg/ (Sodium Chloride) 250 mls @ 166.667 mls/hr IVPB Q8H [facility] Insulin Human Lispro (Humalog*) 0 units SUBCUT ACHS [facility] Levothyroxine Sodium (Synthroid Tab*) 112 mcg PO 0600 [facility] Lisinopril (Prinivil Tab*) 20 mg PO DAILY [facility] Metoprolol Succinate (Toprol Xl Tab*) 25 mg PO DAILY [facility] Montelukast Sodium (Singulair Tab*) 10 mg PO DAILY [facility] Pharmacy Consult (Vancomycin Per Pharmacy*) 1 note FOLLOW UP . PRN Pharmacy Profile Note (Vancomycin Trough Check) 1 note FOLLOW UP 1600 ONE Stop: 04/04/18 16:01 Tamsulosin HCl (Flomax Cap*) 0.4 mg PO DAILY [facility] Tramadol HCl (Ultram*) 50 mg PO TID PRN Reason: PAIN Vital Signs - 8 hr 04/04/18 04/04/18 03:15 08:00 Temperature 99.5 F 98.3 F Pulse Rate 72 78 Respiratory 16 18 Rate Blood Pressure 95/43 133/45 (mmHg) O2 Sat by Pulse 97 99 Oximetry Oxygen Devices in Use Now: None Appearance: NAD, laying in bed Ears/Nose/Mouth/Throat: Mucous Membranes Moist Respiratory: Symmetrical Chest Expansion and Respiratory Effort, Clear to Auscultation Cardiovascular: NL Sounds; No Murmurs; No JVD, RRR Abdominal: NL Sounds; No Tenderness; No Distention Skin: - - Left 2nd toe swollen with erythema Neurological: Alert and Oriented x 3, NL Muscle Strength and Tone Lines/Tubes/Other Access: Clean, Dry and Intact Peripheral IV - site benign Nutrition: Taking PO's Result Diagrams: 04/04/18 05:35 04/04/18 05:35 Additional Lab and Data: Assess/Plan/Problems-Billing Assessment: Mr. Pierce is a 77 yo male with PMH significant for MSSA bacteremia, ANTONIETA, DM with neuropathy, morbid obesity, chronic back pain, arthritis, HTN, P afib, osteomylitis, and ezema who presented to the emergency room with complaints of left toe edema and redness. - Patient Problems (1) Swelling of toe of left foot Code(s): M79.89 - OTHER SPECIFIED SOFT TISSUE DISORDERS SNOMED Code(s): 968220104 Comment: - Uric acid 9.3 yesterday - Suspect secondary to GOUT and possible underlying cellulitis - ID consult, input appreciated - Change ABX to clindamycin - Start Colchicine (2) Leukocytosis Code(s): D72.829 - ELEVATED WHITE BLOOD CELL COUNT, UNSPECIFIED SNOMED Code(s) : 177397441 Comment: - Suspect secondary to underlying cellulitis - Appears to be a chronic problem, should continue to follow-up outpatient for other possible underlying causes (3) BPH (benign prostatic hypertrophy) Code(s): N40.0 - BENIGN PROSTATIC HYPERPLASIA WITHOUT LOWER URINRY TRACT SYMP SNOMED Code(s): 646101773 Comment: - Continue Flomax (4) COPD (chronic obstructive pulmonary disease) Code(s): J44.9 - CHRONIC OBSTRUCTIVE PULMONARY DISEASE, UNSPECIFIED SNOMED Code(s): 00343178 Comment: - No signs of acute exacerbation - Continue inhalers (5) DM type 2 (diabetes mellitus, type 2) Comment: - Glucose 60-130's - Continue Lispro SS - Resume metformin at discharge (6) HTN (hypertension) Code(s): I10 - ESSENTIAL (PRIMARY) HYPERTENSION SNOMED Code(s): 07795612 Comment: - Controlled, SBP 90-130's - Continue lisinopril, amlodipine, and Lasix (7) Hypothyroidism Code(s): E03.9 - HYPOTHYROIDISM, UNSPECIFIED SNOMED Code(s): 35915720 Comment: - Continue levothyroxine (8) ANTONIETA (obstructive sleep apnea) Code(s): G47.33 - OBSTRUCTIVE SLEEP APNEA (ADULT) (PEDIATRIC) SNOMED Code(s): 07639531 Comment: - Continue BIPAP at night (9) DVT prophylaxis Code(s): YBX4013 - SNOMED Code(s): 243357862 Comment: - Heparin SQ (10) Full code status Code(s): Z78.9 - OTHER SPECIFIED HEALTH STATUS SNOMED Code(s): 130134705 Status and Disposition: Inpatient to [facility]. Stable for discharge to home.
[2018-04-04 11:04] LABS: Uric Acid 9.1 mg/dL (4.4-7.6)
[2018-04-04] MEDS ORDERED: Colchicine* 0.6 MG TAB PO SCH ×2 (12:00→21:00)
[2018-04-04] MEDS ORDERED: Clindamycin CAP* 150 MG PO SCH (14:00)
[2018-04-04 15:22] VITALS: BP 139/47
[2018-04-04] MEDS ORDERED: Vancomycin Trough Check NOTE FOLLOW UP ONE (16:00)
--- NOTE | 2018-04-04 20:46 | CONS ---
CONSULTATION REPORT: DATE OF CONSULT: 04/04/18 REQUESTING PHYSICIAN: Dr. Hale. CONSULTING SERVICE: Infectious Disease. REASON FOR CONSULT: Left second toe inflammation. IMPRESSION: 1. Left second toe diffuse edema, erythema, and some tophi; I think this is predominantly a gout flare. It could be a complication of secondary bacterial infection, which would include staphylococcus or streptococcus. 2. Diabetes with neuropathy. RECOMMENDATION: Uric acid lowering therapy and clindamycin 300 mg by mouth 3 times a day for 7 days with close followup of his symptoms. The MRI shows a little bit of bone or edema in the second and third phalanges, but he has no wound and diffuse erythema, so even in that setting, I think, the inflammation of the bone is more likely to be gout related. HISTORY OF PRESENT ILLNESS: This 77-year-old male with diabetes, neuropathy, admitted with left second toe erythema and edema. He noticed that about 3 or 4 days ago, it progressed. 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 He was started on vancomycin and cefepime overnight. An MRI this morning with some edema in the second and third phalanges of the second toe. White count was 13 yesterday; it is 13 today. CRP was 32. He has been afebrile here overnight. He has had no wound on the toe and does not hurt him though he has no feeling in his feet. He has had a diffuse rash over most of his body since his last admission. At that time, it was biopsied and shown to be eczema. He continues to have it, though it is overall improved with the use of various and topical treatments. PAST MEDICAL HISTORY: 1. Diabetes mellitus with neuropathy. 2. Morbid obesity. 3. Obstructive sleep apnea, on BiPAP. 4. Benign prostatic hypertrophy. 5. Chronic back pain. 6. Osteoarthritis. 7. Vertigo. 8. Hypertension. 9. Hypothyroidism. 10. Asthma. 11. Status post right second toe amputation for osteomyelitis. 12. Status post prostatectomy. 13. Eczema. 14. Paroxysmal atrial fibrillation. MEDICATIONS: 1. Tylenol as needed. 2. Albuterol. 3. Amlodipine. 4. Eliquis. 5. Aspirin. 6. Cefepime. 7. Lasix. 8. Levothyroxine. 9. Lisinopril. 10. Metoprolol. 11. Singulair. 12. Tamsulosin. 13. Vancomycin. ALLERGIES: PENICILLIN caused wheeze. FAMILY HISTORY: Mother with liver cancer. Father from abdominal aortic aneurysm. SOCIAL HISTORY: He is a nonsmoker. No travel. No sick contacts. REVIEW OF SYSTEMS: All negative to 14-point review of systems except as noted above. PHYSICAL EXAM: Vital Signs: Temperature is 37, heart rate 80, respiratory rate 18, blood pressure 130/40, and oxygen saturation 99% on room air. In general, he is awake, not in distress. Neurologic: He is oriented x3. Follows all commands. HEENT: There is no conjunctival hemorrhage. Oropharynx without lesions. Neck is supple without mass. Heart has regular rate and rhythm without murmurs, rubs, or gallops. Lungs are clear to auscultation bilaterally. Abdomen: Soft, nontender, nondistended. There are bowel sounds present. Skin: Few blanching erythema, predominantly on his arms and trunk. Musculoskeletal: There is no spine tenderness to palpation. In the left second toe, there is diffuse erythema and edema with 2 dorsal tophi. Slight fluctuance. LABORATORY DATA: White blood cell count 13.2, hemoglobin 12, platelets 568. Creatinine 1. Please see impressions and recommendations as outlined above, which I have discussed with Ame Parson NP Thanks for asking me to see Ms. Pierce in consultation. [id number]/[facility] #: [id number] [facility]
--- NOTE | 2018-04-05 18:35 | DS ---
CC: EUNICE Blackwell; Dr. Satish Aleman * DISCHARGE SUMMARY: DATE OF ADMISSION: 04/03/18 DATE OF DISCHARGE: 04/04/18 ATTENDING PHYSICIAN: Dr. Fan Samayoa * (dictated by Armand Loja NP). PRIMARY CARE PROVIDER: EUNICE Blackwell PRIMARY DIAGNOSES: 1. Gout. 2. Cellulitis of the left second toe. 3. Leukocytosis, chronic. SECONDARY DIAGNOSES: 1. Diabetes mellitus. 2. Hypertension. 3. Atrial fibrillation. CONSULTATIONS WHILE IN THE HOSPITAL: Dr. Satish Aleman with Infectious Disease. STUDIES WHILE IN THE HOSPITAL: 1. Left foot x-ray on 04/03/18. Radiologist's impression: Soft tissue swelling. Nonspecific evidence for osteomyelitis. If there is a high index of suspicious for osteomyelitis, consider an MRI of the foot without contrast or a 3-phase bone scan. 2. Left lower extremity MRI from 04/03/18. Radiologist's impression: Markedly limited study. There is questionable elevation signal within the middle and distal phalanges of the second digit, which would suggest osteomyelitis in the clinical setting. DISCHARGE MEDICATIONS: New home medications: 1. Clindamycin 300 mg oral 3 times daily for 7 days. 2. Colchicine 0.6 mg oral twice daily. Continued home medications: 1. Furosemide 40 mg oral daily. 2. Levothyroxine 112 mcg oral daily. 3. Tamsulosin 0.4 mg oral daily. 4. Albuterol HFA inhaler 1 puff inhalation twice daily as needed for shortness of breath. 5. Metformin ER 1500 mg oral daily. 6. Benadryl 25 mg oral daily as needed for allergy symptoms. 7. Aspirin 81 mg oral daily. 8. Amlodipine 5 mg oral daily. 9. Metoprolol succinate 25 mg oral daily. 10. Lisinopril 20 mg oral daily. 11. Singulair 10 mg oral daily. 12. Eliquis 5 mg oral twice daily. 13. Tramadol 50 mg oral 3 times daily as needed for pain. 14. Hydroxyzine 25 mg oral twice daily as needed for itching. Discontinued home medications: Bactrim. HISTORY OF PRESENT ILLNESS\HOSPITAL COURSE: Mr. Pierce is a 77-year-old male with past medical history significant for MSSA bacteremia, obstructive sleep apnea, diabetes mellitus, hypertension, morbid obesity, chronic back pain, arthritis, vertigo, hypertension, hypothyroidism, asthma, osteomyelitis, eczema and paroxysmal atrial fibrillation, who states that he developed left second toe swelling and redness. He stated that it suddenly occurred 2 days prior to his presentation. He reports following with Dr. Aleman, who recently prescribed him antibiotics. In the emergency room, the patient was noted to have a leukocytosis, which appears to be chronic. He had unremarkable liver function tests, CRP of 32. Hospitalists were asked to evaluate the patient for admission. While in the hospital, the patient continued to have leukocytosis, initially was started on vancomycin and cefepime. He had a uric acid of 9.3. He had blood cultures with no growth on day 1. He was seen in consultation with Dr. Satish Aleman, who felt that the right toe erythema and swelling was likely a gout infection as there were some tophi present on that toe, additionally it is felt he likely had an underlying cellulitis. It is recommended to change the patient to clindamycin and to start treatment for gout. Mr. Pierce is stable for discharge to home. Vital signs are as follows: Temperature 97.5, heart rate 61, respiratory rate 18, O2 sat 99% on room air, blood pressure 139/47. DISCHARGE PLAN: Mr. Pierce will be discharged to home. Activity as tolerated. He will be on a heart healthy consistent carbohydrate diet. In regards to his gout, he has been started on colchicine 0.6 mg twice daily. He has been instructed to take this twice daily until he is seen in followup or develops diarrhea. If he develops diarrhea, he has been asked to decrease his colchicine to once daily. Additionally, he was placed on clindamycin 300 mg 3 times daily for 7 days to treat a cellulitis. He has a followup appointment with his primary EUNICE Blackwell on 04/09/18 at 11 a.m. He has been resumed on his other usual home medications. He has been asked to return to the emergency room for any chest pain or shortness of breath. POINTS OF DISCUSSION FOR FOLLOWUP: The patient chronically appears to have leukocytosis. This should continue to be worked up outpatient as he could have an underlying malignancy that has not yet been followed. If he continues to have improvement in his eczema, he may need further biopsies and studies to ensure that this also is not an underling malignancy. In regards to the patient 's toe, it is suspected that this is gout and cellulitis. If he does not have improvement with the treatment for gout and cellulitis, he should be referred to Orthopedic Surgery for evaluation for a possible osteomyelitis. I currently do not feel this is an osteomyelitis as he does not have an elevated CRP and you can see edema on imaging in the setting of cellulitis and gout. This is a summarized report of a complex medical history and hospital stay. For further details, please see the entire medical record. TIME SPENT: Time for this discharge was approximately 50 minutes, greater than half of that was spent with the patient and his discussing discharge plans and instructions. CONDITION ON DISCHARGE: Stable. ARMAND JIMENEZ, BRIANA [id number]/[facility] #: [id number] MTDD
== END 2018-04-04 16:40 | disposition home or self-care (01) ==
LOC: ED 12:06 → INTOOBSV 17:02 → MED 17:02
PROVIDERS: ADMIT Internal Medicine; ATTEND Student in an Organized Health Care Education/Training Program
DX: M10.9 Gout, unspecified (principal); L03.032 Cellulitis of left toe; D72.829 Elevated white blood cell count, unspecified; E11.9 Type 2 diabetes mellitus without complications; I10 Essential (primary) hypertension; I48.91 Unspecified atrial fibrillation; Z79.84 Long term (current) use of oral hypoglycemic drugs; Z79.899 Other long term (current) drug therapy; Z79.82 Long term (current) use of aspirin; Z88.0 Allergy status to penicillin; J45.909 Unspecified asthma, uncomplicated; N40.0 Benign prostatic hyperplasia without lower urinary tract symptoms; J44.9 Chronic obstructive pulmonary disease, unspecified; G47.33 Obstructive sleep apnea (adult) (pediatric); E66.01 Morbid (severe) obesity due to excess calories; M86.8X7 Other osteomyelitis, ankle and foot; Z87.891 Personal history of nicotine dependence; Z79.01 Long term (current) use of anticoagulants
CPT/HCPCS: 36415; 80048; 80053; 83605; 84550; 85025; 86140; 87040; 96365; 96366; 96367; 99284; A9270-GY; J0692; J3370

== ENCOUNTER 2018-10-28 16:58 | Inpatient (IN) | payer MEDICARE ==
[2018-10-28] MEDS ORDERED: NS 0.9% 1000 ML* 1,000 ML IV ONE ×2 (17:29)
--- NOTE | 2018-10-28 17:36 | ED ---
HPI Cardiac - HPI Summary HPI Summary: This patient is a 78 year old M presenting to [facility] with a chief complaint of a hypotensive (75/46) episode that occurred earlier today. The patient rates the pain 5/10 in severity. Patient reports chills, burping, and fever, checked in the room of 100.4. Patient denies dizziness, light headedness, cough, CP, palpitations, and dysuria. Pt has DM and had a recent toe amputation he had a follow up a few days ago. Hx afib and takes eliquis. BP in room on exam 110/64 - History of Current Complaint Chief Complaint: EDGeneral Stated Complaint: S.O.B. Time Seen by Provider: 10/28/18 17:14 Hx Obtained From: Patient Onset/Duration: Started Hours Ago, Still Present Timing: Constant Initial Severity: Moderate Current Severity: Moderate Pain Intensity: 5 Pain Scale Used: 0-10 Numeric Associated Signs and Symptoms: Positive: Negative - dizziness, light headedness , cough, CP, palpitations, and dysuria - Additional Pertinent History Primary Care Physician: BALA - Allergy/Home Medications Allergies/Adverse Reactions: Allergies Allergy/AdvReac Type Severity Reaction Status Date / Time feathers Allergy Difficulty Verified 10/28/18 17:11 Breathing/Wheezing horse dander Allergy Difficulty Verified 10/28/18 17:11 Breathing/Wheezing Horse/Equine Containing Allergy Difficulty Verified 10/28/18 17:11 Products Breathing/Wheezing peanut Allergy Difficulty Verified 10/28/18 17:11 Breathing/Wheezing peanut oil Allergy Difficulty Verified 10/28/18 17:11 Breathing/Wheezing Penicillins Allergy Difficulty Verified 10/28/18 17:11 Breathing/Wheezing Home Medications: Home Medications Acetaminophen [Tylenol Extra Strength] 1,000 mg PO Q8H PRN 10/28/18 [History Confirmed 10/28/18] Citalopram Hydrobromide [Citalopram HBr] 40 mg PO DAILY 10/28/18 [History Confirmed 10/28/18] Levothyroxine Sodium 125 mcg PO QAM 10/28/18 [History Confirmed 10/28/18] Simvastatin 20 mg PO DAILY 10/28/18 [History Confirmed 10/28/18] Sitagliptin Phosphate [Januvia] 100 mg PO DAILY 10/28/18 [History Confirmed ] Sulfamethox/Trimethoprim DS* [Bactrim DS 800/160 TAB*] 1 tab PO Q12HR 10/28/18 [ History Confirmed 10/28/18] PMH/Surg Hx/FS Hx/Imm Hx Endocrine/Hematology History: Reports: Hx Diabetes, Hx Thyroid Disease Cardiovascular History: Reports: Hx Angina, Hx Atrial Fibrillation, Hx Hypercholesterolemia, Hx Hypertension, Other Cardiovascular Problems/Disorders - cardiac catheterization Denies: Hx Congestive Heart Failure, Hx Coronary Artery Disease, Hx Myocardial Infarction, Hx Pacemaker/ICD, Hx Valvular Heart Disease Respiratory History: Reports: Hx Asthma, Hx Chronic Obstructive Pulmonary Disease (COPD), Hx Sleep Apnea - bipap at night GI History: Reports: Hx Gastroesophageal Reflux Disease History: Reports: Hx Benign Prostatic Hyperplasia, Other Problems/ Disorders - urinary retention & turp Denies: Hx Renal Disease Musculoskeletal History: Reports: Other Musculoskeletal History - 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 Sensory History: Reports: Hx Cataracts - had sx with implant in one eye, Hx Contacts or Glasses - for reading, Other Sensory Impairments - reduced sensation in feet Denies: Hx Hearing Aid Opthamlomology History: Reports: Hx Cataracts - had sx with implant in one eye, Hx Contacts or Glasses - for reading, Other Sensory Impairments - reduced sensation in feet Neurological History: Reports: Other Neuro Impairments/Disorders - le neuropathy Psychiatric History: Denies: Hx Panic Disorder - Surgical History Surgery Procedure, Year, and Place: turp @ [facility] [place] 2012; cataract right eye, RIGHT FOOT 3RD TOE AMPUTATION - Immunization History Date of Tetanus Vaccine: Within 10 years Date of Influenza Vaccine: 2011 Infectious Disease History: No Infectious Disease History: Reports: Hx Clostridium Difficile, Hx of Known/ Suspected MRSA - 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, not active, Hx Shingles - not active Denies: Traveled Outside the [place] in Last 30 Days - Family History Known Family History: Positive: None Negative: Cardiac Disease, Diabetes Family History: R& n/C - Social History Alcohol Use: None Hx Substance Use: No Substance Use Type: Reports: None Hx Tobacco Use: Yes Smoking Status (MU): Former Smoker Type: Cigarettes Length of Time of Smoking/Using Tobacco: 5 years Review of Systems Positive: Fever Negative: Palpitations, Chest Pain Negative: Cough Gastrointestinal: Other - burping Negative: dysuria Neurological: Negative - light heaedness and dizziness All Other Systems Reviewed And Are Negative: Yes Physical Exam - Summary Physical Exam Summary: Appearance: Ill appearing, no pain distress Skin: Chronic appearing dermatitis. Skin feels warm and flushed. Wound on the left great toe is clean, dry, and intact. Head/face: normal Eyes: EOMI, JONATHON ENT: mucous membranes moist Neck: supple, non-tender Respiratory: CTA, breath sounds present Cardiovascular: irregularly irregular, pulses symmetrical Abdomen: non-tender, soft Bowel Sounds: present Musculoskeletal: normal, strength/ROM intact Neuro: normal, sensory motor intact, A&Ox3 Triage Information Reviewed: Yes Vital Signs On Initial Exam: Initial Vitals Temp Pulse Resp BP Pulse Ox 98.6 F 78 16 100/66 100 10/28/18 17:07 10/28/18 17:07 10/28/18 17:07 10/28/18 17:07 10/28/18 17:07 Vital Signs Reviewed: Yes Diagnostics - Vital Signs Vital Signs Temp Pulse Resp BP Pulse Ox 10/28/18 17:07 98.6 F 78 16 100/66 100 - Laboratory Result Diagrams: 10/28/18 17:53 10/28/18 17:52 Lab Statement: Any lab studies that have been ordered have been reviewed, and results considered in the medical decision making process. - Radiology CXR Radiology Interpretation Completed By: Radiologist Summary of Radiographic Findings: LIKELY CHRONIC PLEURAL CHANGES IN THE RIGHT LUNG BASE WITH NO DEFINITE. PNEUMONIA. ED physician has reviewed this radiology report. - EKG 1755 Cardiac Rate: Other Rate EKG Rhythm: Atrial Fibrillation - at 91 BPM Summary of EKG Findings: Nml axis, poor r wave progression, low voltage. Disposition - Course Course Of Treatment: Patient presents with recent surgical procedure on his great toe, fever to 100.4, shakes chills and blood pressure at 75 systolic at home. Blood pressure hovering around 100 systolic here. Elevated white blood cell count and lactate here. Urine, chest x-ray negative. Note definite source of infection though there is possibility of osteomyelitis. Pending biopsies by his doctors. Triple antibiotic coverage here and admit to the hospital for further. Assessment/Plan: Nurse's note reviewed - Differential Dx - Cardiopulmonary Differential Diagnoses - Cardiopulmonary: Other - UTI, pneumonia, bacteremia, sepsis, osteomyelitis - Diagnoses Provider Diagnoses: Sepsis - Physician Notifications Discussed Care Of Patient With: Fan Samayoa Time Discussed With Above Provider: 18:36 Instructed by Provider To: Admit As Inpatient - Critical Care Time Critical Care Time: 30-74 min - CCT is EXCLUSIVE of separately billable procedures. Discharge - Sign-Out/Discharge Documenting (check all that apply): Patient Departure - admitted - Discharge Plan Condition: Fair Disposition: ADMITTED TO [facility] Referrals: Session Norbert CHAND [Primary Care Provider] - - Billing Disposition and Condition Condition: FAIR Disposition: Admitted to [facility] - Attestation Statements Document Initiated by Fabianoibe: Yes Documenting Scribe: Angel Shepherd Provider For Whom Shira is Documenting (Include Credential): Cheng Rivero MD Scribe Attestation: Angel Cuba, scribed for Cheng Rivero MD on 10/28/18 at 1928. Scribe Documentation Reviewed: Yes Provider Attestation: The documentation as recorded by the Angel aiken accurately reflects the service I personally performed and the decisions made by , Cheng Rivero MD Status of Scribe Document: Viewed
[2018-10-28 18:06] LABS: Hematocrit 37 % (42-52); Hemoglobin 11.9 g/dl (14.0-18.0); Mean Corpuscular HGB Conc 32 g/dl (31-36); Mean Corpuscular Hemoglobin 31 pg (27-31); Mean Corpuscular Volume 94 fL (80-94); Mean Platelet Volume 7.1 fL (7.4-10.4); Platelet Count 405 10^3/ul (150-450); Red Blood Count 3.91 10^6/ul (4.00-5.40); Red Cell Distribution Width 16 % (10.5-15); White Blood Count 13.4 10^3/ul (3.5-10.8)
[2018-10-28 18:14] LABS: Activated Partial Thrombo Time 35.3 seconds (26.0-36.3); INR 1.22 (0.77-1.02)
[2018-10-28 18:19] LABS: Urine Appearance Cloudy; Urine Bilirubin Negative (Negative); Urine Blood Negative (Negative); Urine Color Yellow; Urine Glucose Negative (Negative); Urine Ketones Negative (Negative); Urine Nitrite Negative (Negative); Urine Protein Negative (Negative); Urine Specific Gravity 1.014 (1.010-1.030); Urine Urobilinogen Negative (Negative)
[2018-10-28 18:23] LABS: Albumin 3.5 g/dL (3.2-5.2); Albumin/Globulin Ratio 1.1 (1-3); BUN/Creatinine Ratio 16.1 (8-20); C Reactive Protein 14.69 mg/L (<8.01); Calcium 8.8 mg/dL (8.6-10.3); EGFR Non-African American 45.9 (>60); Globulin 3.1 g/dL (2-4); Potassium 4.3 mmol/L (3.5-5.0); Total Bilirubin 0.4 mg/dL (0.2-1.0); Total Protein 6.6 g/dL (6.4-8.9)
[2018-10-28 18:29] LABS: ABS Basophils 0.2 10^3/ul (0-0.2); ABS Eosinophils 3.2 10^3/ul (0-0.6); ABS Lymphocytes 1.1 10^3/ul (1.0-4.8); ABS Monocytes 1.5 10^3/ul (0-0.8); ABS Neutrophils 7.5 10^3/ul (1.5-7.7); ABS Nucleated RBC 0 10^3/ul; Eosinophil % 24.1 %; Lymphocyte % 7.9 %; Nucleated Red Blood Cells % 0
[2018-10-28] MEDS ORDERED: Cefepime(*) 2 GM in NS 0.9% 50 ML* 50 ML IVPB ONE (18:33)
[2018-10-28] MEDS ORDERED: metroNIDAZOLE IV 500 MG/100ML* 500 MG/100 ML BAG IVPB ONE (18:33)
[2018-10-28] MEDS ORDERED: Cefepime 2 GM in Dextrose(*) 2 GM/50 ML BAG IV ONE ×2 (18:47→19:00)
[2018-10-28] MEDS ORDERED: Vancomycin(*) 1,750 MG in NS 0.9% 500 ML* 500 ML IVPB ONE (19:00)
[2018-10-28] MEDS ORDERED: Vancomycin(*) 1,000 MG VIAL IVPB SCH (19:00)
[2018-10-28] MEDS ORDERED: Acetaminophen TAB* 325 MG PO PRN (20:00)
[2018-10-28] MEDS ORDERED: Albuterol HFA INHALER* 8 gm MDI INH PRN (20:00)
[2018-10-28] MEDS ORDERED: Albuterol/Ipratropium NEB.SOL* Albuterol 2.5 MG/Ipratropium 0.5 MG 3 ML INH PRN (20:39)
[2018-10-28] MEDS ORDERED: NS 0.9% 1000 ML* 1,000 ML IV SCH (20:45)
--- NOTE | 2018-10-28 21:19 | ADMNOTE ---
Subjective Date of Service: 10/28/18 Interval History: code status full this is admission h/p source from pt/ and er staff hpi this is a 78 yr old with type ii dm morbid obesity just got r big toe amputated [address] Acosta was brought in by ambulance due to low sbp 70s. pt did not feel well ---> checked his sugar and sbp ---> sugar was 116 but sbp 70s ---> 911 called. sbp after ns went up to 100. intial wbc is 14.6 and lactate was 2.4. suture site on the r big toe was intact but no x ray was done. pt got vancomycin/cefepime/flagyl from er. only one set of blood culture was able to obtained from er. last mri was 2 weeks ago prior to surgery. 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 mri with/without contrast will be ordered in am. 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 hx of mssa with bactremia twice 2015 type ii dm bph morbid obesity chronic back pain arthritis vertigo htn hypothyroidism hx of asthma copd hx of om with toe amputation hx of paf on eliquis hx of ecaema ( generalized ) pshx s/p r corneal implant >10 yrs s/p r big toe amputation 6 days ago s/p r third toe amputation 3 yrs ago s/p total prostatectomy s/p toe amputation due to om social hx no cig no etoh comes from home walks with a cara lives with fhx htn/dm Review of Systems - Measurements Intake and Output: Intake and Output Last 24 Hours 10/26/18 10/27/18 10/28/18 10/29/18 06:59 06:59 06:59 06:59 Intake Total 2049 Balance 2049 Weight 259 lb Intake: IV Fluids 2049 - Review of Systems General Comments: pertinent as per hpi Objective Active Medications: Albuterol (Ventolin Hfa Inhaler*) 1 puff INH BID PRN PRN Reason: SHORTNESS OF BREATH Albuterol/Ipratropium (Duoneb (Albuterol 2.5 Mg/Ipratropium 0.5 Mg)) 1 neb INH [id number] AWAKE PRN PRN Reason: sob/wheexing Citalopram Hydrobromide (Celexa Tab*) 40 mg PO DAILY KEE Sodium Chloride (Ns 0.9% 1000 Ml*) 1,000 mls @ 125 mls/hr IV PER RATE KEE Cefepime HCl (Maxipime 1 Gm In Dextrose Duplex (*)) 1 gm in 50 mls @ 100 mls/ hr IV Q12H KEE Vancomycin HCl 1,000 mg/ (Sodium Chloride) 250 mls @ 166.667 mls/hr IVPB .CONTINUE PROTOCOL KEE; Protocol Insulin Human Regular (Insulin Regular(*)) 0 units SUBCUT ACHS KEE; Protocol Levothyroxine Sodium (Synthroid Tab*) 125 mcg PO DAILY@0600 [facility] Metoprolol Succinate (Toprol Xl Tab*) 25 mg PO DAILY KEE Montelukast Sodium (Singulair Tab*) 10 mg PO DAILY [facility] Non-Formulary Medication (Acetaminophen [Tylenol Extra Strength]) 1,000 mg PO Q8H PRN PRN Reason: PAIN Simvastatin (Zocor(Nf)) 20 mg PO DAILY [facility] Sitagliptin Phosphate (Januvia (Nf)) 100 mg PO DAILY KEE; Protocol Tamsulosin HCl (Flomax Cap*) 0.4 mg PO DAILY [facility] Vital Signs - 8 hr 10/28/18 10/28/18 10/28/18 17:07 17:12 17:23 Temperature 98.6 F Pulse Rate 78 89 89 Respiratory 16 19 23 Rate Blood Pressure 100/66 110/64 (mmHg) O2 Sat by Pulse 100 97 93 Oximetry 10/28/18 10/28/18 10/28/18 17:52 18:00 19:00 Temperature Pulse Rate 79 Respiratory 19 18 27 Rate Blood Pressure 107/59 (mmHg) O2 Sat by Pulse 96 Oximetry 10/28/18 10/28/18 19:32 20:00 Temperature Pulse Rate 75 89 Respiratory 17 15 Rate Blood Pressure 100/53 (mmHg) O2 Sat by Pulse 91 89 Oximetry Oxygen Devices in Use Now: None Appearance: nad Eyes: No Scleral Icterus, PERRLA Ears/Nose/Mouth/Throat: NL Teeth, Lips, Gums, Clear Oropharnyx, - - oral mucosa dry poor dentation Neck: NL Appearance and Movements; NL JVP, Trachea Midline, No Thyroid Enlargement, Masses Respiratory: Symmetrical Chest Expansion and Respiratory Effort, Clear to Auscultation Cardiovascular: - - s1 s2 irr irr no murmur Abdominal: NL Sounds; No Tenderness; No Distention - no rebound no guarding Extremities: - - + 2 pedal edema, right big toe suture line intact but erythema extends from toe to dorsum and one inch above ankle. left lower ext + venous stasis scar Skin: - - 2 inches above the ankle Neurological: Alert and Oriented x 3, NL Muscle Strength and Tone, - - cranial n 2-12 grossly intact able to feel ue and le sensory equal Result Diagrams: 10/28/18 17:53 10/28/18 17:52 EKG Data: a fib rate controlled though Assess/Plan/Problems-Billing Assessment: this is a 78 yr old wm with hx of type ii dm recently just got r first big toe amputated 6 days ago presented to er with not feeling well/shivering today ---> sbp was 70 at home but f/s 116. pt was bolus with ns with repeat sbp 100. he got only one set of blood cx done but was given vanco/cefepime/flagyl. x ray of r foot not ordered by er ---> will order spoke with ortho who will see pt in am will also repeat mri of his r foot with/without contrast. - Patient Problems (1) SIRS (systemic inflammatory response syndrome) Current Visit: Yes Status: Acute Code(s): R65.10 - SIRS OF NON-INFECTIOUS ORIGIN W/O ACUTE ORGAN DYSFUNCTION SNOMED Code(s): 625924684 Comment: due to his r toe --->? om vs om vs cellulitis vs occult abscess iv abx ivf moniter cbc and lactate trend will just ck ua c/s just to r/o uti as a cause (2) Type II diabetes mellitus Current Visit: Yes Status: Acute Comment: will continue all his home dm meds except metformin insulin ss will ck his a1c (3) BPH (benign prostatic hypertrophy) Current Visit: No Status: Chronic Code(s): N40.0 - BENIGN PROSTATIC HYPERPLASIA WITHOUT LOWER URINRY TRACT SYMP SNOMED Code(s): 111634033 Comment: s/p total prostatecomy - Continue Flomax - will ck ua c/s just in case (4) COPD (chronic obstructive pulmonary disease) Current Visit: No Status: Chronic Priority: Medium Code(s): J44.9 - CHRONIC OBSTRUCTIVE PULMONARY DISEASE, UNSPECIFIED SNOMED Code(s): 03556058 Comment: - No signs of acute exacerbation - Continue inhalers (5) Diabetic foot infection Current Visit: No Status: Acute Code(s): E11.69 - TYPE 2 DIABETES MELLITUS WITH OTHER SPECIFIED COMPLICATION; L08.9 - LOCAL INFECTION OF THE SKIN AND SUBCUTANEOUS TISSUE, UNSP SNOMED Code(s): 470919188 Comment: -right first toe cellulitis and possible osteomyelitis, diabetes related. - MRI with/without iv contrast - ortho eval in am -wound cx ordered (6) HTN (hypertension) Current Visit: No Status: Chronic Priority: Medium Code(s): I10 - ESSENTIAL (PRIMARY) HYPERTENSION SNOMED Code(s): 70142971 Comment: his intial hypotension responds to ivf ---> will continue metoprolol es but hold his iraj (7) PAF (paroxysmal atrial fibrillation) Current Visit: Yes Status: Acute Code(s): I48.0 - PAROXYSMAL ATRIAL FIBRILLATION SNOMED Code(s): 373174143 Comment: hr stable tele monitering continue b grupo will hold his anticoag in case he needs to go to or ( on eliquis ) (8) Hyperlipidemia Current Visit: Yes Status: Acute Code(s): E78.5 - HYPERLIPIDEMIA, UNSPECIFIED SNOMED Code(s): 60330888 Comment: lft wnl will ck fasting lipid continue his zocor home dose (9) Hypothyroidism Current Visit: No Status: Chronic Priority: Medium Code(s): E03.9 - HYPOTHYROIDISM, UNSPECIFIED SNOMED Code(s): 29530739 Comment: - will ck his tsh and free t4 - Continue levothyroxine (10) ANTONIETA (obstructive sleep apnea) Current Visit: No Status: Chronic Priority: Medium Code(s): G47.33 - OBSTRUCTIVE SLEEP APNEA (ADULT) (PEDIATRIC) SNOMED Code(s): 64538046 Comment: - Continue BIPAP at night instructed to call his home bipap setting ---> unable to come back with his bipap machine for tonight lives about 30+ miles away (11) Full code status Current Visit: No Status: Acute Code(s): Z78.9 - OTHER SPECIFIED HEALTH STATUS SNOMED Code(s): 629533537 (12) DVT prophylaxis Current Visit: No Status: Acute Priority: Medium Code(s): ZUN2493 - SNOMED Code(s): 464096020 Comment: on eliquis for his paf
[2018-10-28] MEDS: Insulin REGULAR(*) 1 UNITS UNIT SUBCUT SCH (23:14)
--- NOTE | 2018-10-28 23:14 | PN ---
Hospitalist Progress Note Date of Service: 10/28/18 echo done 05/2017 showed ef 55-60 percent with mild to mod dilated left atrium , mild to mod lvh right atrium mild to mod dilated
[2018-10-28] MEDS ORDERED: Vancomycin per Pharmacy* NOTE FOLLOW UP PRN (23:17)
[2018-10-29] MEDS ORDERED: traMADol TAB* 50 MG PO PRN (01:32)
[2018-10-29 05:58] LABS: Hematocrit 38 % (42-52); Hemoglobin 12.5 g/dl (14.0-18.0); Mean Corpuscular HGB Conc 33 g/dl (31-36); Mean Corpuscular Hemoglobin 31 pg (27-31); Mean Corpuscular Volume 94 fL (80-94); Mean Platelet Volume 6.7 fL (7.4-10.4); Platelet Count 423 10^3/ul (150-450); Red Cell Distribution Width 16 % (10.5-15); White Blood Count 13.6 10^3/ul (3.5-10.8)
[2018-10-29] MEDS ORDERED: Vancomycin(*) 1,000 MG in NS 0.9% 250 ML* 250 ML IVPB SCH ×2 (06:00→09:00)
[2018-10-29] MEDS ORDERED: Levothyroxine TAB* 125 MCG TAB PO SCH (06:00)
[2018-10-29 06:04] LABS: INR 1.19 (0.77-1.02)
[2018-10-29 06:07] LABS: ABS Basophils 0.1 10^3/ul (0-0.2); ABS Eosinophils 2.7 10^3/ul (0-0.6); ABS Lymphocytes 0.8 10^3/ul (1.0-4.8); ABS Monocytes 1.3 10^3/ul (0-0.8); ABS Neutrophils 8.7 10^3/ul (1.5-7.7); ABS Nucleated RBC 0 10^3/ul; Eosinophil % 19.9 %; Lymphocyte % 6.2 %; Nucleated Red Blood Cells % 0
[2018-10-29 06:15] LABS: Calcium 8.5 mg/dL (8.6-10.3); EGFR Non-African American 48.9 (>60); HDL Cholesterol 26.7 mg/dL; Potassium 4.3 mmol/L (3.5-5.0)
[2018-10-29 06:39] LABS: TSH (Thyroid Stimulating Horm) 3.41 mcIU/mL (0.34-5.60)
[2018-10-29 07:17] LABS: Urine Appearance Clear; Urine Bilirubin Negative (Negative); Urine Blood Negative (Negative); Urine Color Yellow; Urine Glucose Negative (Negative); Urine Ketones Negative (Negative); Urine Nitrite Negative (Negative); Urine Protein Negative (Negative); Urine Specific Gravity 1.017 (1.010-1.030); Urine Urobilinogen Negative (Negative)
[2018-10-29] MEDS ORDERED: Cefepime 1 GM in Dextrose(*) 1 GM/50 ML BAG IV SCH (08:00)
[2018-10-29] MEDS: Insulin REGULAR(*) 1 UNITS UNIT SUBCUT SCH ×3 (08:11→15:58)
[2018-10-29] MEDS: Acetaminophen TAB* 325 MG PO SCH ×2 (08:12→16:38)
[2018-10-29] MEDS ORDERED: Metoprolol Succinate XL TAB* 25 MG PO SCH (09:00)
[2018-10-29] MEDS ORDERED: Citalopram TAB* 20 MG PO SCH (09:00)
[2018-10-29] MEDS ORDERED: CMCS: SitaGLIPtin (NF) 100 MG TAB PO SCH (09:00)
[2018-10-29] MEDS ORDERED: Atorvastatin* 10 MG TAB PO SCH (09:00)
[2018-10-29] MEDS ORDERED: Tamsulosin CAP* 0.4 MG PO SCH (09:00)
[2018-10-29] MEDS ORDERED: Montelukast Sodium TAB* 10 MG PO SCH (09:00)
[2018-10-29] MEDS ORDERED: LORazepam INJ* 2 MG/ML 1 ML VIAL IV PUSH ONE (13:00)
--- NOTE | 2018-10-29 13:24 | CONS ---
AMENDED REPORT NOW INCLUDES DATE OF CONSULT ORTHOPEDIC CONSULTATION: DATE OF CONSULT: 10/29/18 ATTENDING ORTHOPEDIC PROVIDER: Dr. Mickey Reed. CHIEF COMPLAINT: History of recent partial great toe amputation, rule out continued infective process, right foot. HISTORY OF PRESENT ILLNESS: The patient is a 78-year-old male who was admitted to the medical service on 10/28/18 with low systolic blood pressures and low sugar. The patient did not feel well and his called 911. He received normal saline at the time of his admission, which improved his blood pressure slightly. His white counts are slightly elevated and he has been admitted for further workup regarding the foot as well as managing his glucose and blood pressures. The patient underwent partial amputation of the right great toe by Dr. Acosta, his market research specialist in [place], [place]. The patient states that initially the toe was left open to drain and then was closed in the office roughly 1 week ago. Per the patient, further bone cultures were taken and he was awaiting results to see if further amputation of the toe would be necessary. The patient is insensate in the forefoot secondary to longstanding diabetes mellitus. He currently denies pain in the right foot. He states that he has felt shaky, but is unclear whether this is due to his sugars. PAST MEDICAL HISTORY: MRSA nares, MSSA with bacteremia x2 in 2016, type 2 diabetes mellitus, BPH, morbid obesity, chronic back pain, arthritis, vertigo, hypertension, hypothyroidism, history of asthma, COPD, atrial fibrillation/on Eliquis. PAST SURGICAL HISTORY: Corneal implant over 10 years ago; total prostatectomy; right third toe amputation done by Dr. Stout 3 years ago; partial right great toe amputation secondary to osteomyelitis, Dr. Acosta, 1 week ago. MEDICATIONS: 1. Albuterol. 2. Celexa. 3. Cefepime. 4. Vancomycin. 5. Regular Insulin. 6. Synthroid. 7. Metoprolol. 8. Singulair. 9. Extra Strength Tylenol. 10. Zocor. 11. Januvia. 12. Flomax. FAMILY HISTORY: Positive for hypertension, diabetes. SOCIAL HISTORY: The patient denies use of tobacco or EtOH. He lives with his . PHYSICAL EXAM: The patient is seen at bedside. He is alert and oriented x3, in no acute distress. Vital Signs: Temperature 98.3, pulse 97, respiratory rate 20, O2 sats 100% on room air, blood pressure 115/43. Examination of the right foot shows 1+ pedal edema, right great toe suture line, Vicryl sutures intact. There is no significant erythema noted of the foot. There is no tenderness through the hindfoot, forefoot. He is insensate from the mid- forefoot distally. There is no gross purulent drainage noted. No fluctuance or induration noted of the foot. He has active dorsiflexion and plantar flexion of the ankle without pain. He does have an excoriation on the left knee region which has some noted weeping, mild erythema is noted of the dorsal left knee and leg. DIAGNOSTIC STUDIES/LAB DATA: Laboratory study show a white count elevated at 13.6, hemoglobin 12.5, hematocrit 38, INR 1.19. Microbiology culture taken of the right great toe, dated 10/28/18, shows MRSA negative, Staph aureus negative. X-ray evaluation done of the right foot failed to show any obvious erosions. He does have degenerative changes of the first metatarsophalangeal joint noted, amputation of the third toe is noted as well. IMPRESSION: Status post amputation distal right great toe secondary to osteomyelitis, rule out abscess/deeper infectious process to the right foot. PLAN: An MRI of the right foot is pending to rule out fluid collection or deeper osteomyelitis in the toe or foot. He will continue on antibiotic therapy as ordered. If the MRI fails to show any new acute process, he is recommended to follow up with Dr. Acosta, his market research specialist in [place]. EUNICE MEIER [id number]/[facility] #: [id number] CHAZ
--- NOTE | 2018-10-29 14:46 | CONSULT ---
Consult Consult: I saw and examined Norbert today. Please see Alexandra Valdez's full consultation note for full H&P. In brief, Norbert had a recent right great toe amputation less than a week ago with a boilermaker in [place]. He was admitted with a cellulitis and started on IV antibiotics. The foot is looking better. No significant erythema. No purulence. No fluctuance or obvious collections. I would recommend an MRI to assess for any abscesses. As long as this looks okay , from my standpoint, he could be discharged on oral antibiotics and followup with his boilermaker. Mickey Reed MD
[2018-10-29 15:45] VITALS: BP 108/52
[2018-10-30] MEDS ORDERED: Vancomycin Trough Check NOTE FOLLOW UP ONE (08:30)
--- NOTE | 2018-11-01 01:29 | DS ---
CC: Dr. Rutherford; JAGRUTI Blackwell* DISCHARGE SUMMARY: DATE OF ADMISSION: 10/28/18 DATE OF DISCHARGE: 10/29/18 ATTENDING PHYSICIAN: Nazanin Hutchins DO* (dictated by Anayeli Brooke NP) PRIMARY CARE PROVIDER: JAGRUTI Blackwell QUALITY ASSURANCE LEAD: Dr. Rutherford, Podiatry, [place], [place] PRIMARY DIAGNOSES: 1. Cellulitis. 2. Acute kidney injury. 3. Hypotension, mild. SECONDARY DIAGNOSES: 1. Diabetes. 2. History of MRSA in the nares. 3. History of MSSA bacteremia in 2016. 4. BPH. 5. Morbid obesity. 6. Chronic back pain. 7. Arthritis. 8. Vertigo. 9. Hypertension. 10. Hypothyroid. 11. Asthma. 12. COPD. 13. Paroxysmal atrial fibrillation. 14. Eczema. 15. History of osteomyelitis with toe amputation. STUDIES COMPLETED WHILE IN THE HOSPITAL: He had an MRI on 10/29/18 of the right foot, radiologist's impression: Limited exam due to motion artifact. Diffuse soft tissue edema involving the subcutaneous tissue plane and intrinsic skeletal musculature of the foot concerning for cellulitis, myositis in the correct clinical context without evidence of loculated soft tissue plane abscess collection. No compelling evidence of osteomyelitis. He had a chest x-ray on 10/28/18, radiologist's impression: Likely chronic pleural changes in the right lung base without definite pneumonia. He had a foot x-ray on 10/28/18. Amputation of the distal end of the right great toe and third digit degenerative changes in the first metatarsophalangeal joint. He had a urinalysis. Urine culture with no growth of clinical significance. He had a wound culture that was negative for MRSA and negative for MSSA. Wound culture grew normal shiloh. He had blood cultures x2, which showed no growth. DISCHARGE MEDICATIONS: New home medications: Clindamycin 300 mg p.o. t.i.d. for 10 days. Discontinued home medications: 1. Lisinopril. 2. Bactrim. Held medication: Lasix. Continued home medications: 1. Albuterol HFA inhaler 1 puff b.i.d. p.r.n. 2. Acetaminophen 1000 mg q.8 hours as needed. 3. Tamsulosin 0.4 mg p.o. daily. 4. Simvastatin 20 mg p.o. daily. 5. Eliquis 5 mg p.o. b.i.d. 6. Metformin 1500 mg p.o. daily. 7. Citalopram 40 mg p.o. daily. 8. Januvia 100 mg p.o. daily. 9. Singulair 10 mg p.o. daily. 10. Metoprolol 25 mg p.o. daily. 11. Levothyroxine 125 mcg p.o. q.a.m. HISTORY OF PRESENT ILLNESS: Mr. Pierce is a 78-year-old male with a past medical history significant for diabetes; paroxysmal atrial fibrillation, on Eliquis; arthritis; vertigo; great distal toe amputation 6 days prior to admission; history of MRSA and MSSA in 2016; asthma; hypothyroidism; hypertension; vertigo, who presented to the emergency room with low blood pressure and sugar. Per reports of patient's , who took the patient's blood pressure at home and had systolic blood pressure in the 70s and a blood sugar of 116. The patient was not feeling well, so she called 911 and the patient was brought to the emergency room. Initially, the patient was found to have systolic blood pressure in 100s, on admission to the emergency room. His white count was 13.5 and lactate was 2.4. Due to the concern of cellulitis in the right foot and the possibility of osteomyelitis, the patient was admitted to the hospital for further evaluation. While in the hospital, the patient had an MRI of the foot, which showed no evidence of osteomyelitis or loculated fluid collection. He was seen in consultation by Orthopedics, who felt that there was not any evidence of osteomyelitis in the foot, so it was recommended that the patient follow up with his assistant elementary teacher this week for further evaluation of the toe. The patient also reported having shaking chills at home and a fever of 100.4. The patient, on arrival to the hospital was afebrile. He remained afebrile throughout his hospitalization. He had no more episodes of shaking. His systolic blood pressure was soft throughout his hospitalization. His lisinopril was held during his hospitalization as well as he did have an elevated creatinine level from his baseline. On the day of discharge, the patient reports that he was ready to go home, he feels at his baseline. He has no complaints of chills, fever, nausea, vomiting or diarrhea and again, he had an MRI that was negative for osteomyelitis. REVIEW OF SYSTEMS: The patient denies any fever, chills, nausea, vomiting or diarrhea. Denies any abdominal pain. Denies any chest pain or shortness of breath. Denies any pain with urination or dysuria. He denies any pain in his right foot. Denies any cough, congestion or shortness of breath. PHYSICAL EXAMINATION: General: At this time, Mr. Pierce is sitting in the chair in his room. He has no complaints. He does not appear to be in any acute distress. He is alert and oriented x3. HEENT: Head is atraumatic, normocephalic. Eyes: EOMs are intact. Sclerae anicteric and not pale. Oral mucosa appeared to be moist. Neck is supple. Lungs are clear to auscultation bilaterally with diminished lung sounds in the bases. No wheezes, rales or rhonchi. Cardiac: S1, S2. Regular rate and rhythm. Abdomen is rounded, soft and nontender. Bowel sounds are present x4. Extremities: Pedal pulses are +1 bilaterally. Skin is reddened. Right great toe with sutures intact to the distal tip. Scant amount of serous drainage noted on dressing. There is mild swelling and edema noted to the right great toe and mild edema noted to the right forefoot. Skin: Right great toe with sutures intact to the distal tip. Scant amount of serous drainage noted. Generalized skin redness noted to entire body. The patient reports that this has been present x1 year. Neurologic: The patient is alert and oriented x3. Speech is clear. Thought process is intact. No gross focal deficits. At this time, Mr. Pierce is stable for discharge home. Vital signs are as follows: Temperature was 97.9, heart rate 86, respirations 18, O2 saturation was 98%, blood pressure 108/52. DISCHARGE PLAN: Mr. Pierce will be discharged home. Activity as tolerated. He should continue on a heart healthy, consistent carb diet. 1. Right foot cellulitis, status post right distal great toe tip amputation. The patient will be placed on clindamycin 300 mg p.o. t.i.d. for 10 days as per recommendation of Dr. Aleman. The patient is to follow up with Dr. Aleman in 1 week. He should follow up with his assistant elementary teacher, Dr. Rutherford this week. He should follow up with him in regards to his right great toe management. He did have an MRI of the right foot that did not show any osteomyelitis at this time. 2. Acute kidney injury. I suspect this could be related to dehydration, lisinopril and recent Bactrim DS use. We will discontinue Bactrim and we will hold lisinopril. His creatinine level was trending down. I would encourage him to stay hydrated and follow up with his primary care provider to repeat BMP in 3 to 4 days. 3. Hypertension. The patient's systolic blood pressure was soft during his hospitalization in the low 100s. I did discontinue his lisinopril during this hospitalization. I recommended that he hold his Lasix for 2 days and then decrease it by half to 20 mg p.o. daily. He should follow up with his primary care provider, Mr. Unger in 1 to 3 days for further evaluation of his blood pressure and further recommendations in regards to his blood pressure medications. 4. Diabetes. The patient should resume his home medications as previously prescribed. 5. Asthma. He can resume his previous medications as prescribed. 6. Hypothyroid. He should continue his medications as previously prescribed. FOLLOW UP: The patient should follow up with his assistant elementary teacher next week. He should follow up with Dr. Aleman in 1 week. He should follow up with his primary care provider in 1 to 3 days for a blood pressure recheck and further management of his soft systolic blood pressure. The patient was instructed to return to the emergency room for any increased redness, pain, swelling or increased drainage from the right foot, fever, chills , nausea, vomiting, chest pain or shortness of breath. This is a summarization of his hospitalization. For further details, please see the entire medical record. TIME SPENT: Time spent on this discharge is 60 minutes, greater than half that time was spent with the patient and his discussing discharge plans and instructions. CONDITION ON DISCHARGE: Stable. ANAYELI RIVERANEY, BRIANA [id number]/[facility] #: [id number] CHAZ
== END 2018-10-29 18:59 | disposition home health service (06) | DRG 603 ==
LOC: ED 16:58 → MEDTELE 20:39
PROVIDERS: ADMIT Internal Medicine; ATTEND Internal Medicine
DX: L03.115 Cellulitis of right lower limb (principal); R65.10 Systemic inflammatory response syndrome (SIRS) of non-infectious origin without acute organ dysfunction; E11.9 Type 2 diabetes mellitus without complications; E78.00 Pure hypercholesterolemia, unspecified; I10 Essential (primary) hypertension; J44.9 Chronic obstructive pulmonary disease, unspecified; E11.40 Type 2 diabetes mellitus with diabetic neuropathy, unspecified; E11.36 Type 2 diabetes mellitus with diabetic cataract; Z96.1 Presence of intraocular lens; L30.9 Dermatitis, unspecified; E66.01 Morbid (severe) obesity due to excess calories; N40.0 Benign prostatic hyperplasia without lower urinary tract symptoms; G89.29 Other chronic pain; M54.9 Dorsalgia, unspecified; G47.33 Obstructive sleep apnea (adult) (pediatric); E03.9 Hypothyroidism, unspecified; I48.0 Paroxysmal atrial fibrillation; Z82.49 Family history of ischemic heart disease and other diseases of the circulatory system; Z83.3 Family history of diabetes mellitus; Z79.01 Long term (current) use of anticoagulants; Z86.14 Personal history of Methicillin resistant Staphylococcus aureus infection; Z91.048 Other nonmedicinal substance allergy status; Z91.010 Allergy to peanuts; Z89.421 Acquired absence of other right toe(s); Z98.41 Cataract extraction status, right eye; Z88.0 Allergy status to penicillin; Z87.891 Personal history of nicotine dependence; Z79.84 Long term (current) use of oral hypoglycemic drugs
CPT/HCPCS: 36415; 71045; 80048; 80053; 80061; 81003; 83605; 84443; 84484; 85025; 85610; 85730; 86140; 87040; 87070; 87086; 87205; 87640; 87641; 93005; 94660; 99284; A9270-GY; J0692; J2060; J3370; J3490

== ENCOUNTER 2019-04-15 12:34 | Emergency (ER) | payer MEDICARE ==
[2019-04-15] MEDS ORDERED: NS 0.9% 1000 ML** 1,000 ML IV ONE (12:48)
[2019-04-15] MEDS ORDERED: Meclizine TAB* 12.5 MG PO ONE (12:48)
--- NOTE | 2019-04-15 12:48 | ED ---
Dizziness - HPI Summary HPI Summary: This pt is a 78 y/o male presenting to [facility] via EMS for dizziness today. Pt reports his dizziness began upon waking up today at around 07:00. He describes dizziness as room spinning. Pt additionally states chest tightness. Denies SOB, abd pain, fever. He does have hx of vertigo. Pt took 10 mg of Meclizine at 10:30 this morning with mild relief. He currently reports his dizziness is mildly better than onset. reports they were advised to come to the ED if there was no relief. PMHx includes HTN, afib, vertigo. - History Of Current Complaint Stated Complaint: DIZZY PER EMS AND FAMILY Time Seen by Provider: 04/15/19 12:44 Hx Obtained From: Patient Onset/Duration: Still Present Timing: Hours Severity Initially: Moderate Severity Currently: Mild Character: Room Spinning, Dizzy Aggravating Factor(s): Nothing Alleviating Factor(s): Nothing Associated Signs And Symptoms: Positive: Chest Pain. Negative: SOB, Fever, Chills - Allergies/Home Medications Allergies/Adverse Reactions: Allergies Allergy/AdvReac Type Severity Reaction Status Date / Time feathers Allergy Difficulty Verified 10/28/18 17:11 Breathing/Wheezing horse dander Allergy Difficulty Verified 10/28/18 17:11 Breathing/Wheezing Horse/Equine Containing Allergy Difficulty Verified 10/28/18 17:11 Products Breathing/Wheezing peanut Allergy Difficulty Verified 10/28/18 17:11 Breathing/Wheezing peanut oil Allergy Difficulty Verified 10/28/18 17:11 Breathing/Wheezing Penicillins Allergy Difficulty Verified 10/28/18 17:11 Breathing/Wheezing PMH/Surg Hx/FS Hx/Imm Hx Endocrine/Hematology History: Reports: Hx Diabetes, Hx Thyroid Disease Cardiovascular History: Reports: Hx Angina, Hx Atrial Fibrillation, Hx Hypercholesterolemia, Hx Hypertension, Other Cardiovascular Problems/Disorders - cardiac catheterization Denies: Hx Congestive Heart Failure, Hx Coronary Artery Disease, Hx Myocardial Infarction, Hx Pacemaker/ICD, Hx Valvular Heart Disease Respiratory History: Reports: Hx Asthma, Hx Chronic Obstructive Pulmonary Disease (COPD), Hx Sleep Apnea - bipap at night GI History: Reports: Hx Gastroesophageal Reflux Disease History: Reports: Hx Benign Prostatic Hyperplasia, Other Problems/ Disorders - urinary retention & turp Denies: Hx Renal Disease Musculoskeletal History: Reports: Other Musculoskeletal History - 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 Sensory History: Reports: Hx Cataracts - had sx with implant in one eye, Other Sensory Impairments - reduced sensation in feet Denies: Hx Contacts or Glasses, Hx Hearing Aid Opthamlomology History: Reports: Hx Cataracts - had sx with implant in one eye, Other Sensory Impairments - reduced sensation in feet Denies: Hx Contacts or Glasses Neurological History: Reports: Other Neuro Impairments/Disorders - le neuropathy , vertigo Psychiatric History: Denies: Hx Panic Disorder - Surgical History Surgery Procedure, Year, and Place: turp @ [facility] [place] 2012; cataract right eye, RIGHT FOOT 3RD TOE AMPUTATION - Immunization History Date of Tetanus Vaccine: Within 10 years Date of Influenza Vaccine: 2011 Infectious Disease History: Reports: Hx Clostridium Difficile, Hx of Known/ Suspected MRSA - 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 GENERAL: Patient is a well-developed and nourished male who is lying comfortable in the stretcher. Patient is not in any acute respiratory distress. HEAD AND FACE: Normocephalic EYES: PERRLA, EOMI x 2. No nystagmus. EARS: Hearing grossly intact. MOUTH: Oropharynx within normal limits. NECK: Supple, trachea is midline, no adenopathy, no JVD, no carotid bruit. CHEST: Symmetric, no tenderness at palpation LUNGS: Clear to auscultation bilaterally. No wheezing or crackles. CVS: Regular rate and rhythm, S1 and S2 present, no murmurs or gallops appreciated. ABDOMEN: Soft, non-tender. Bowel sounds are normal. No abdominal abnormal pulsations. EXTREMITIES: Full ROM in all major joints, no edema, no cyanosis or clubbing. NEURO: Alert and oriented x 3. No acute neurological deficits. Speech is normal and follows commands. SKIN: Dry and warm GCS: 15 Triage Information Reviewed: Yes Vital Signs On Initial Exam: Initial Vitals Temp Pulse Resp BP Pulse Ox 98.1 F 50 20 160/103 100 04/15/19 12:44 04/15/19 12:44 04/15/19 12:44 04/15/19 12:44 04/15/19 12:44 Vital Signs Reviewed: Yes Diagnostics - Laboratory Result Diagrams: 04/15/19 13:32 04/15/19 13:32 Lab Statement: Any lab studies that have been ordered have been reviewed, and results considered in the medical decision making process. - Radiology Chest XR Radiology Interpretation Completed By: Radiologist Summary of Radiographic Findings: IMPRESSION: Hyperinflated lung lewis with no definite pneumonia. Dr. Nix has reviewed this report. - CT Brain CT CT Interpretation Completed By: Radiologist Summary of CT Findings: IMPRESSION: No acute intracranial pathology. Dr. Nix has reviewed this report. - EKG 12:45 Cardiac Rate: Bradycardia - at 46 bpm EKG Rhythm: Sinus Bradycardia Summary of EKG Findings: No ST elevations. Re-Evaluation - Re-Evaluation First Eval Re-Evaluation Time: 15:52 Comment: Reviewed lab, CXR, brain CT results with the pt. He will be discharged home. Dizzy Course/Dx - Course Assessment/Plan: This pt is a 78 y/o male presenting to [facility] via EMS for dizziness today. Pt reports his dizziness began upon waking up today at around 07:00. He describes dizziness as room spinning. Pt additionally states chest tightness. Denies SOB, abd pain, fever. He does have hx of vertigo. Pt took 10 mg of Meclizine at 10:30 this morning with mild relief. He currently reports his dizziness is mildly better than onset. reports they were advised to come to the ED if there was no relief. Past medical history significant for. 1 - Hypothyroidism,. 2- COPD. 3- Obstructive sleep apnea. 4- Diabetes type 2. 5- Hypertension. 6- BPH. 7- Palpitations. 8- Dyslipidemia. 9- SIRS. 10- Vertigo. 11: Atrial fibrillation. Blood test results without any significant abnormality except for WBCs of 14.6, hemoglobin 11.4, hematocrit 35, and platelets 369. Glucose is 149, sodium 133, BNP 160, and urinalysis negative for UTI. Chest XR IMPRESSION: Hyperinflated lung lewis with no definite pneumonia. Brain CT is negative for an acute intracranial pathology. In the ED course the patient was given IV fluids and meclizine and all of his symptoms resolved. At this point the patient is ambulating without any dizziness. At this point I discussed all the findings and test results with the patient. He was instructed to return to the emergency room immediately if any of the symptoms return or worsens. They understand and agree. Neurological exam before discharge: Patient is alert and oriented x 3. No acute neurological deficits. Patient vital signs are stable. Patient is to follow up with his PCP in the next 2 3 days. They understand and agree. Plan of care was discussed with the patient and patient understands and agrees with the plan of care. All questions were answered at patient satisfaction. There were no further complaints or concerns. - Diagnoses Provider Diagnoses: Vertigo Discharge - Sign-Out/Discharge Documenting (check all that apply): Patient Departure - Discharge home Patient Received Moderate/Deep Sedation with Procedure: No - Discharge Plan Condition: Stable Disposition: HOME Patient Education Materials: Vertigo (ED) Referrals: Session Norbert CHAND [Primary Care Provider] - Additional Instructions: PLEASE FOLLOW UP WITH YOUR PRIMARY CARE PROVIDER IN 2-3 DAYS. RETURN TO THE ED FOR ANY WORSENING OR NEW SYMPTOMS. - Billing Disposition and Condition Condition: STABLE Disposition: Home - Attestation Statements Document Initiated by Fabianoibmisty: Yes Documenting Scribe: Megan Payne Provider For Whom Shira is Documenting (Include Credential): Mark Nix MD Scribe Attestation: Megan Cuba scribed for Mark Nix MD on 04/16/19 at 1027. Scribe Documentation Reviewed: Yes Provider Attestation: The documentation as recorded by the Megan aiken accurately reflects the service I personally performed and the decisions made by , Mark Nix MD Status of Scribe Document: Viewed
[2019-04-15 13:42] LABS: Hematocrit 35 % (42-52); Hemoglobin 11.4 g/dL (14.0-18.0); Mean Corpuscular HGB Conc 33 g/dL (31-36); Mean Corpuscular Hemoglobin 30 pg (27-31); Mean Corpuscular Volume 92 fL (80-94); Mean Platelet Volume 7.3 fL (7.4-10.4); Platelet Count 369 10^3/uL (150-450); Red Blood Count 3.84 10^6 /uL (4.18-5.48); Red Cell Distribution Width 16 % (10-15); White Blood Count 14.6 10^3/uL (3.5-10.8)
[2019-04-15 13:50] LABS: ABS Basophils 0.1 10^3/ul (0-0.2); ABS Eosinophils 0.2 10^3/ul (0-0.6); ABS Lymphocytes 1.6 10^3/ul (1.0-4.8); ABS Monocytes 1.8 10^3/ul (0-0.8); ABS Neutrophils 10.8 10^3/ul (1.5-7.7); Eosinophil % 1.6 %; Lymphocyte % 11.2 %
[2019-04-15 14:06] LABS: Albumin 3.2 g/dL (3.2-5.2); Albumin/Globulin Ratio 0.9 (1-3); BUN/Creatinine Ratio 23.5 (8-20); C Reactive Protein 1.58 mg/L (<8.01); Calcium 8.7 mg/dL (8.6-10.3); EGFR Non-African American 87.6 (>60); Globulin 3.6 g/dL (2-4); Magnesium 2.1 mg/dL (1.9-2.7); Total Bilirubin 0.3 mg/dL (0.2-1.0); Total Protein 6.8 g/dL (6.4-8.9)
[2019-04-15 14:28] LABS: Urine Appearance Cloudy; Urine Bilirubin Negative (Negative); Urine Blood Negative (Negative); Urine Color Yellow; Urine Glucose Negative (Negative); Urine Ketones Negative (Negative); Urine Nitrite Negative (Negative); Urine Protein Negative (Negative); Urine Specific Gravity 1.011 (1.010-1.030); Urine Urobilinogen Negative (Negative)
[2019-04-15 14:35] LABS: TSH (Thyroid Stimulating Horm) 2.94 mcIU/mL (0.34-5.60)
[2019-04-15 16:38] VITALS: BP 162/72
== END 2019-04-15 16:40 | disposition home or self-care (01) ==
LOC: ED 12:34
DX: R42 Dizziness and giddiness (principal); E11.9 Type 2 diabetes mellitus without complications; I10 Essential (primary) hypertension; I48.91 Unspecified atrial fibrillation; Z87.891 Personal history of nicotine dependence; E03.9 Hypothyroidism, unspecified; J44.9 Chronic obstructive pulmonary disease, unspecified; G47.33 Obstructive sleep apnea (adult) (pediatric); N40.0 Benign prostatic hyperplasia without lower urinary tract symptoms; E78.5 Hyperlipidemia, unspecified; R65.10 Systemic inflammatory response syndrome (SIRS) of non-infectious origin without acute organ dysfunction; Z79.899 Other long term (current) drug therapy
CPT/HCPCS: 36415; 70450; 71046; 80053; 81003; 82550; 83605; 83735; 83880; 84443; 84484; 85025; 86140; 93005; 96360; 99282; A9270-GY

== ENCOUNTER 2019-08-09 16:00 | Inpatient (IN) | payer MEDICARE ==
--- NOTE | 2019-08-09 16:37 | ED ---
Lower Extremity - HPI Summary HPI Summary: 79 year old male presents to the ED with a chief complaint of leg weakness and pain starting yesterday, worse since this morning. The patient has itchy rashes on his lower extremities bilaterally as well as swelling. He has difficulty ambulating; yesterday he was unable to walk up stairs and today he was unable to get up out of a chair. His legs feel weak. Patient denies back pain, tingling, numbness, cough, fever, chills, erythema of eyes, sore throat, CP, SOB , abdominal pain, N/V, dysuria, hematuria, myalgia, edema, dizziness, or difficulty speaking. No PMHx of stroke. - History of Current Complaint Chief Complaint: EDWeakness Stated Complaint: LEG PAIN PER EMS Time Seen by Provider: 08/09/19 16:18 Hx Obtained From: Patient Mechanism Of Injury: Unknown Onset of Pain: Hours Onset/Duration: Worse Since - This morning Severity Initially: Moderate Severity Currently: Moderate Pain Intensity: 0 Timing: Constant, Lasting Hours Location: Is Diffuse Associated Signs And Symptoms: Positive: Swelling, Weakness, Knee Pain, Other - Rash bilaterally on legs Aggravating Factor(s): Ambulation Alleviating Factor(s): Nothing Able to Bear Weight: No - Hurts to walk - Allergies/Home Medications Allergies/Adverse Reactions: Allergies Allergy/AdvReac Type Severity Reaction Status Date / Time feathers Allergy Difficulty Verified 10/28/18 17:11 Breathing/Wheezing horse dander Allergy Difficulty Verified 10/28/18 17:11 Breathing/Wheezing Horse/Equine Containing Allergy Difficulty Verified 10/28/18 17:11 Products Breathing/Wheezing peanut Allergy Difficulty Verified 10/28/18 17:11 Breathing/Wheezing peanut oil Allergy Difficulty Verified 10/28/18 17:11 Breathing/Wheezing Penicillins Allergy Difficulty Verified 10/28/18 17:11 Breathing/Wheezing Home Medications: Home Medications Albuterol HFA INHALER* [Ventolin HFA Inhaler*] 1 puff INH Q6H PRN 08/09/19 [ History Confirmed 08/09/19] Levothyroxine TAB* [Synthroid 150 MCG TAB*] 150 mcg PO DAILY 08/09/19 [History Confirmed 08/09/19] Metoprolol Tartrate TAB* [Lopressor TAB*] 25 mg PO BID WITH MEALS 08/09/19 [ History Confirmed 08/09/19] Sertraline* [Zoloft*] 50 mg PO DAILY 08/09/19 [History Confirmed 08/09/19] Simvastatin TAB(NF) [Zocor 20 MG (NF)] 20 mg PO QPM 08/09/19 [History Confirmed 08/09/19] SitaGLIPtin (NF) [Januvia (NF)] 100 mg PO DAILY 08/09/19 [History Confirmed 02/22] PMH/Surg Hx/FS Hx/Imm Hx Endocrine/Hematology History: Reports: Hx Diabetes, Hx Thyroid Disease Cardiovascular History: Reports: Hx Angina, Hx Atrial Fibrillation, Hx Hypercholesterolemia, Hx Hypertension, Other Cardiovascular Problems/Disorders - cardiac catheterization Denies: Hx Congestive Heart Failure, Hx Coronary Artery Disease, Hx Myocardial Infarction, Hx Pacemaker/ICD, Hx Valvular Heart Disease Respiratory History: Reports: Hx Asthma, Hx Chronic Obstructive Pulmonary Disease (COPD), Hx Sleep Apnea - bipap at night GI History: Reports: Hx Gastroesophageal Reflux Disease History: Reports: Hx Benign Prostatic Hyperplasia, Other Problems/ Disorders - urinary retention & turp Denies: Hx Renal Disease Musculoskeletal History: Reports: Other Musculoskeletal History - 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 Sensory History: Reports: Hx Cataracts - had sx with implant in one eye, Other Sensory Impairments - reduced sensation in feet Denies: Hx Contacts or Glasses, Hx Hearing Aid Opthamlomology History: Reports: Hx Cataracts - had sx with implant in one eye, Other Sensory Impairments - reduced sensation in feet Denies: Hx Contacts or Glasses Neurological History: Reports: Other Neuro Impairments/Disorders - le neuropathy Denies: Hx CVA Psychiatric History: Denies: Hx Panic Disorder - Surgical History Surgical History: Yes Surgery Procedure, Year, and Place: turp @ [facility] [place]; cataract right eye, RIGHT FOOT 3RD TOE AMPUTATION - Immunization History Date of Tetanus Vaccine: Within 10 years Date of Influenza Vaccine: 2011 Infectious Disease History: No Infectious Disease History: Reports: Hx Clostridium Difficile, Hx of Known/ Suspected MRSA - 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, not active, Hx Shingles - not active Denies: Traveled Outside the [place] in Last 30 Days - Family History Known Family History: Positive: None Negative: Cardiac Disease, Diabetes Family History: R& n/C - Social History Alcohol Use: None Hx Substance Use: No Substance Use Type: Reports: None Hx Tobacco Use: Yes Smoking Status (MU): Former Smoker Type: Cigarettes Length of Time of Smoking/Using Tobacco: 5 years Review of Systems Negative: Fever, Chills Negative: Erythema Negative: Sore Throat Negative: Chest Pain Negative: Shortness Of Breath, Cough Negative: Abdominal Pain, Vomiting, Nausea Negative: dysuria, hematuria Negative: Myalgia, Edema, Other - negative- back pain Positive: Rash - BLE with swelling Neurological: Other - Positive: difficulty ambulating. Negative: dizziness. Positive: Weakness. Negative: Paresthesia, Numbness, Slurred Speech All Other Systems Reviewed And Are Negative: Yes Physical Exam - Summary Physical Exam Summary: Constitutional: Well-developed, Well-nourished, Alert. (-) Distressed Skin: Warm, Dry HENT: Normocephalic; Atraumatic Eyes: Conjunctiva normal Neck: Musculoskeletal ROM normal neck. (-) JVD, (-) Stridor, (-) Tracheal deviation Cardio: Rhythm regular, rate normal, Heart sounds normal; Intact distal pulses; The pedal pulses are 2+ and symmetric. Radial pulses are 2+ and symmetric. (-) Murmur Pulmonary/Chest wall: Effort normal. (-) Respiratory distress, (-) Wheezes, (-) Rales Abd: Soft. (-) Tenderness, (-) Distension, (-) Guarding, (-) Rebound Musculoskeletal: (-) Edema, Left leg weakness with effort against gravity. Lymph: (-) Cervical adenopathy Neuro: Alert, Oriented x3, Strength normal, Cranial nerves II-XII are grossly intact. (-) Dysmetria, (-) Nystagmus, (-) Ataxia by finger to nose testing, (-) Sensory deficit. NIH: 2, GCS: 15 Psych: Mood and affect Normal Triage Information Reviewed: Yes Vital Signs On Initial Exam: Initial Vitals Temp Pulse Resp BP Pulse Ox 98.3 F 57 20 173/77 94 08/09/19 16:16 08/09/19 16:16 08/09/19 16:16 08/09/19 16:16 08/09/19 16:16 Vital Signs Reviewed: Yes - Sandwich Coma Scale Best Eye Response: 4 - Spontaneous Best Motor Response: 6 - Obeys Commands Best Verbal Response: 5 - Oriented Coma Scale Total: 15 Procedures - Procedure Summary Procedure Summary: Joint Aspiration Procedure: 15 mls of 2% lido with epi used as local anesthetic for left knee aspiration, total of 180mls of cloudy fluid was expressed from the joint - Sedation Patient Received Moderate/Deep Sedation with Procedure: No Diagnostics - Vital Signs Vital Signs Temp Pulse Resp BP Pulse Ox 08/09/19 16:16 98.3 F 57 20 173/77 94 - Laboratory Result Diagrams: 08/12/19 07:47 08/13/19 09:16 Lab Statement: Any lab studies that have been ordered have been reviewed, and results considered in the medical decision making process. - CT Brain CT CT Interpretation Completed By: Radiologist Summary of CT Findings: 1. No acute fractures or dislocations. 2. 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 3. Associated left knee synovial osteochondromatosis with PVNS considered less likely. - EKG 1741 Cardiac Rate: Bradycardia - 52 bpm EKG Rhythm: Sinus Bradycardia Summary of EKG Findings: EKG at 1741 shows bradycardic sinus rhythm of 52 bpm. No STEMI. An EKG physician has reviewed and interpretted this report. National Institutes Of Health - NIH Scale Level of Consciousness: Alert/Keenly Responsive Ask Patient the Month and His/Her Age: Both Correct Ask Pt to Open/Close Eyes and Principal Bioinformatics Specialist/Release Non-Paretic Hand: Both Correctly Best Gaze (Only Horizontal Eye Movement): Normal Visual Field Testing: No Visual Loss Facial Paresis-Pt to Smile & Close Eyes or Grimace Symmetry: Normal/Symmetrical Motor Function - Right Arm: No Drift-Holds 10 Seconds Motor Function - Left Arm: No Drift-Holds 10 Seconds Motor Function - Right Leg: No Drift-Holds 10 Seconds Motor Function - Left Leg: Effort Against [place] Limb Ataxia-Must be out of Proportion to Weakness Present: Absent Sensory (Use Pinprick to Test Arms/Legs/Trunk/Face): Normal Best Language (Describe Picture, Name Items): No Aphasia Dysarthria (Read Several Words): Normal Extinction and Inattention: No Abnormality Total Score: 2 Re-Evaluation - Re-Evaluation First Eval Re-Evaluation Time: 22:30 Comment: Joint aspiration performed. Relays hx of gout in the toes previously. Lower Extremity Course/Dx - Course Course Of Treatment: 79 year old male presents to the ED with a chief complaint of leg weakness and pain starting yesterday, worse since this morning. The patient has itchy rashes on his lower extremities bilaterally as well as swelling. He has difficulty ambulating; yesterday he was unable to walk up stairs and today he was unable to get up out of a chair. His legs feel weak. Patient denies back pain, tingling, numbness, cough, fever, chills, erythema of eyes, sore throat, CP, SOB, abdominal pain, N/V, dysuria, hematuria, myalgia, edema, dizziness, or difficulty speaking. No PMHx of stroke. Physical exam reveals left leg weakness with effort against gravity, GCS: 15, NIH: 2. Labs reveal WBCs of 15.5, hgb of 12.8, hct of 39, RDW o f16, MPV of 7.3, abs neuts of 11.4, abs lymphs of 0.9, abs monos of 1.9, abs eos of 1.1, BUN/creatinine of 23.2, CRP of 18.53, globulin of 4.1, and albumin/globulin of 0.9. UA obtained and is negative for infection. In the ED course, the pt was administered Tramadol, Clindamycin, and Benadryl. EKG at 1741 shows bradycardic sinus rhythm of [address] negative for intracranial abnormality. Dr. Lisa, hospitalist, accepts pt for admission. I also spoke with Dr. Guzman, neurology, and we will rule out stroke secondary to left leg weakness. I do not suspect cauda equina or Guillain-Mart syndrome. Joint aspiration procedure performed ( see procedure note). He relays hx of gout in the toes previously. Body fluid cultures ordered from join aspiration. Dx is left leg weakness. - Diagnoses Provider Diagnoses: Left leg weakness - Physician Notifications Discussed Care Of Patient With: Tyler Lisa - hospitalist Time Discussed With Above Provider: 20:12 Instructed by Provider To: Admit As Observation - I discussed pt's case with Dr. Lisa, and he accepts for admission. I also spoke with Dr. Guzman, and we will rule out stroke. Discharge ED - Sign-Out/Discharge Documenting (check all that apply): Patient Departure - accepted for admission by Dr. Lisa - Discharge Plan Condition: Stable Disposition: ADMITT[facility] TO [facility] - Billing Disposition and Condition Condition: STABLE Disposition: Admitted to [facility] - Attestation Statements Document Initiated by Scribe: Yes Documenting Scribe: Aram Subramanian Provider For Whom Shira is Documenting (Include Credential): Timothy Brandt MD. Scribe Attestation: Aram Cuba, scribed for Timothy Brandt MD. on 08/20/19 at 2135. Scribe Documentation Reviewed: Yes Provider Attestation: The documentation as recorded by the scribeAram accurately reflects the service I personally performed and the decisions made by , Timothy Brandt MD. Status of Scribe Document: Viewed
--- OUTSIDE RECORDS SUMMARY | 2019-08-09 17:06 | XMS REPORT | Continuity of Care Document ---
:1940 External Reference #:[id number] Author Name Benjamín La M.D. (transmitted by agent of provider Alba Childress) Address [address] 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 Onset: 08/05/2011 Obstructive sleep apnea syndrome Justin Denny M.D. Onset: 2010 Chronic asthmatic bronchitis Justin Denny M.D. Onset: 08/05/2011 Benign essential hypertension Justin Denny M.D. Onset: 08/05/2011 Electrocardiogram abnormal Justin Denny M.D. Onset: 08/05/2011 Malignant essential hypertension Justin Denny M.D. Onset: 2010 Hyperlipidemia Justin Denny M.D. Onset: 09/16/2011 Dyspnea Justin Denny M.D. Onset: 09/16/2011 Chest pain [place] [facility] Schedule Onset: 05/16/2013 Social History Type Date Description Comments Sex Unknown ETOH Use Denies alcohol use Tobacco Use Start: Unknown End: Patient is a former smoked for 5 Unknown smoker years-quit at age 24 Recreational Drug Use Denies Drug Use Smoking Status Reviewed: 11/21/18 Patient is a former smoked for 5 smoker years-quit at age 24 Exercise Type/Frequency Does not exercise Allergies, Adverse Reactions, Alerts Active Allergies Reaction Severity Comments Date Penicillin Difficulty breathing 08/05/2011 Feathers 08/05/2011 Horse 08/05/2011 Peanuts 08/05/2011 Medications Active Medications SIG Qnty Indications Ordering Date Provider Clindamycin HCL 1 by mouth three 30caps Satish DGodwin 10/28/2018 300mg times a day Mark Andrews Capsules Eliquis 1 by mouth twice a 60tabs I48.0 Benjamín DGodwin 02/15/2018 5mg Tablets day Mark La Albuterol 1 puff bid 1units Unknown 90mcg/Act Aerosol Levothyroxine Sodium 1 po qd 90tabs Unknown 112mcg Tablets Furosemide po qam 30tabs Unknown 20mg Tablets Singulair 1 po qd Unknown 10mg Tablets Metformin HCL three tabs every Unknown 500mg day Tablets Tamsulosin HCL 1 by mouth every Unknown 0.4mg day Capsules Acetaminophen ER 1 tab by mouth Unknown 650mg every 4 hours as Tablets ER needed pain Triamcinolone apply thin film Unknown Acetonide twice daily 0.1% Cream Meclizine HCL Take One Tablet By Unknown 25mg Mouth Three Times A Tablets Day as Needed Super C-500 Complex 1 twice a day Unknown Tablets ER Muscle Therapy With as needed Unknown Arnica Chlorhexidine swish and spit 15 Unknown Gluconate milliliters twice a 0.12% day until Solution resolution of symptoms Immunizations Description No Information Available Vital Signs Date Vital Result Comment 11/21/2018 10:20am Height 71 inches 5'11" Weight 266.38 lb Heart Rate 67 /min BP Systolic Sitting 108 mmHg BP Diastolic Sitting 86 mmHg Respiratory Rate 16 /min Body Temperature 95.9 F BMI (Body Mass Index) 37.1 kg/m2 06/20/2018 2:25pm Height 71 inches 5'11" Weight 276.00 lb Heart Rate 68 /min BP Systolic Sitting 116 mmHg Rue lg cuff BP Diastolic Sitting 84 mmHg Rue lg cuff BP Systolic Standing 118 mmHg Rue BP Diastolic Standing 80 mmHg Rue Respiratory Rate 16 /min BMI (Body Mass Index) 38.5 kg/m2 Ejection Fraction 55-60% as of 01/2018 echo Results Description No Information Available Procedures Description No Information Available Medical Devices Description No Information Available Encounters Description No Information Available Assessments Description No Information Available Plan of Treatment No Information Available Functional Status Description No Information Available Mental Status Description No Information Available Referrals Description No Information Available
[2019-08-09 18:08] LABS: Hematocrit 39 % (42-52); Hemoglobin 12.8 g/dL (14.0-18.0); Mean Corpuscular HGB Conc 33 g/dL (31-36); Mean Corpuscular Hemoglobin 30 pg (27-31); Mean Corpuscular Volume 90 fL (80-94); Mean Platelet Volume 7.3 fL (7.4-10.4); Platelet Count 341 10^3/uL (150-450); Red Blood Count 4.35 10^6 /uL (4.18-5.48); Red Cell Distribution Width 16 % (10-15); White Blood Count 15.5 10^3/uL (3.5-10.8)
[2019-08-09 18:37] LABS: Albumin 3.8 g/dL (3.2-5.2); Albumin/Globulin Ratio 0.9 (1-3); BUN/Creatinine Ratio 23.2 (8-20); Calcium 9.7 mg/dL (8.6-10.3); EGFR African American 110.2 (>60); EGFR Non-African American 91.1 (>60); Globulin 4.1 g/dL (2-4); Potassium 4.2 mmol/L (3.5-5.0); Total Bilirubin 0.4 mg/dL (0.2-1.0); Total Protein 7.9 g/dL (6.4-8.9)
[2019-08-09 18:41] LABS: ABS Basophils 0.2 10^3/ul (0-0.2); ABS Eosinophils 1.1 10^3/ul (0-0.6); ABS Lymphocytes 0.9 10^3/ul (1.0-4.8); ABS Monocytes 1.9 10^3/ul (0-0.8); ABS Neutrophils 11.4 10^3/ul (1.5-7.7); Eosinophil % 7.2 %; Nucleated Red Blood Cells % 0.2
[2019-08-09 18:48] LABS: TSH (Thyroid Stimulating Horm) 0.64 mcIU/mL (0.34-5.60)
[2019-08-09] MEDS ORDERED: traMADol TAB* 50 MG PO ONE (18:53)
[2019-08-09 19:13] LABS: Urine Appearance Clear; Urine Bilirubin Negative (Negative); Urine Blood Negative (Negative); Urine Color Yellow; Urine Glucose Negative (Negative); Urine Ketones Negative (Negative); Urine Nitrite Negative (Negative); Urine Protein Negative (Negative); Urine Specific Gravity 1.013 (1.010-1.030); Urine Urobilinogen Negative (Negative)
[2019-08-09] MEDS ORDERED: diPHENhydraMINE IV* 50 MG/ML 1 ml VIAL (BENADRYL) IV ONE (19:42)
[2019-08-09] MEDS ORDERED: diPHENhydraMINE IV* 50 MG/ML 1 ml VIAL (BENADRYL) ONE (19:43)
[2019-08-09] MEDS ORDERED: Clindamycin 900 MG IVPREMIX(* 900 MG/50 ML SDV IV ONE (20:08)
[2019-08-09] MEDS ORDERED: Clindamycin 900 MG/D5W BAG(*) 900 MG/50 ML BAG IVPB ONE (21:00)
[2019-08-09] MEDS ORDERED: Lidocaine 2% w/ EPI 1:200,000* 20 ML SDV VIAL INJ ONE (22:16)
[2019-08-09 22:43] LABS: C Reactive Protein 18.53 mg/L (<8.01); Uric Acid 6.8 mg/dL (4.4-7.6)
[2019-08-09] MEDS ORDERED: Iodixanol* (CONTRAST) 320 MG/ML 100 ML SDV IV ONE (22:43)
[2019-08-09] MEDS ORDERED: oxyCODONE/Acetamin 5/325 MG* TAB PO ONE (23:19)
[2019-08-09] MEDS ORDERED: Albuterol HFA INHALER* 8 gm MDI INH PRN (23:27)
[2019-08-09] MEDS ORDERED: NS 0.9% 1000 ML** 1,000 ML IV SCH (23:30)
[2019-08-09 23:33] LABS: Body Fluid Source Synovial Fluid
[2019-08-09] MEDS ORDERED: Vancomycin(*) 1,000 MG in NS 0.9% 250 ML* 250 ML IVPB ONE (23:35)
[2019-08-09] MEDS ORDERED: Vancomycin per Pharmacy* NOTE FOLLOW UP SCH (23:45)
[2019-08-10] MEDS ORDERED: Vancomycin 1500 MG IV - x ONCE IVPB ONE ×2 (00:30)
[2019-08-10 00:53] LABS: Body Fluid Mono 9 %
[2019-08-10 00:57] LABS: Body Fluid Comment SYRINGE #1
--- NOTE | 2019-08-10 02:14 | HP ---
CC: JAGRUTI Blackwell * ADMISSION HISTORY AND PHYSICAL: DATE OF ADMISSION: 08/09/19 PRIMARY CARE PROVIDER: JAGRUTI Blackwell. CHIEF COMPLAINT: Left leg weakness. HISTORY OF PRESENT ILLNESS: This is a 79-year-old male with a past medical history of recurrent MSSA bacteremia in 2016, diabetes, obstructive sleep apnea , osteomyelitis of the toe, status post amputation, history of eczema of whole body, who came in due to left lower extremity weakness. The patient stated that he was in his usual state of health up until yesterday morning when he could not go anywhere. He was also feeling very itchy on the left leg, had scratched it quite a bit, and then this morning he could not bear any weight and he could not walk at all, so he finally decided to come to the ER for further evaluation. The patient denied any numbness or tingling, any other weakness anywhere else, other than the left lower extremity. He was also complaining of severe back pain, but also stated that he has low-back pain. He denied any urinary incontinence or stool incontinence, stated that he could hold when he had to go. He had some constipation 3 days ago. He otherwise denies any fevers or chills. He does have a history of gout and was complaining of pain in his leg as well. He stated that his back pain was actually a pain in his left knee that is radiating up his knee into his hip and onto his back. PAST MEDICAL HISTORY: 1. As mentioned, methicillin sensitive staph aureus bacteremia in 2016, twice, but there is no documentation of what was the source of this. 2. History of obstructive sleep apnea, on BiPAP at night. 3. Diabetes type 2. 4. Benign prostatic hypertrophy status post prostatectomy. 5. Morbid obesity. 6. Chronic back pain. 7. Dementia. The patient is oriented to place and person, but unsure of the year or month, and he himself states that this is because of his dementia. 8. Arthritis. 9. Vertigo. 10. Hypertension. 11. Hypothyroidism. 12. History of asthma. 13. History of osteomyelitis, status post toe amputation of the right third toe. 14. History of depression. 15. Paroxysmal Afib, on anticoagulation 16. History of gout, as mentioned. PAST SURGICAL HISTORY: Includes: 1. A corneal implant on the right eye. 2. Prostatectomy. 3. Right third toe amputation. HOME MEDICATIONS: 1. Albuterol one puff by inhalation q.6 hours p.r.n. shortness of breath. 2. Eliquis 5 mg p.o. b.i.d. 3. Lasix 20 mg oral daily. 4. Levothyroxine 150 mcg oral daily every morning. 5. Metformin 1500 mg oral daily. 6. Metoprolol 25 mg oral p.o. b.i.d. 7. Montelukast 10 mg p.o. daily every evening. 8. Sertraline 50 mg oral daily. 9. Simvastatin 20 mg oral daily. 10. Januvia 100 mg oral daily. ALLERGIES: The patient is documented to have multiple allergies including FEATHER, HORSE DANDER, any HORSE OR EQUINE-CONTAINING PRODUCTS, PEANUT, PEANUT OIL, and PENICILLIN, all of which cause difficulty breathing and wheezing. FAMILY HISTORY: Noncontributory at his age of 79, but there is a history of mother dying of liver cancer and father having abdominal aortic aneurysm. SOCIAL HISTORY: He ambulates with a cane at baseline, has had a smoking history of 3 to 4 years in his 20s, but he quit right away. Denied any alcohol or drug use. Lives with his , who is his healthcare proxy, and patient is otherwise full code. REVIEW OF SYSTEMS: A 14-point review of systems did not reveal any new information other than what was mentioned in the HPI. PHYSICAL EXAMINATION GENERAL: The patient is awake, alert, and oriented to place and person, but not to time, and clearly states that he is unable to recall the year. VITAL SIGNS: In the ER, BP was noted to be 158/113, heart rate 68, respiration rate 18, saturating 100% on room air, temperature was noted to be 98.3. HEAD AND NECK: Atraumatic, normocephalic. Bilateral pupils are reactive. Oral mucosa was dry. Neck was supple. No jugular venous distention. LUNGS: Clear to auscultation bilaterally. No wheezing, rhonchi or rales. HEART: S1 and S2. Irregularly irregular. ABDOMEN: Soft, nontender, nondistended. EXTREMITIES: The patient had severe tenderness on the left extremity with passive movement. So, I discussed the case with the ER physician to tap the left knee. Even after the left knee was tapped, he was still having severe pain and weakness on that same left lower extremity. SKIN: The patient had erythema and eczema on the entire belly and on the lower extremities. NEURO: The patient had left lower extremity motor strength to be 1/5, but it was also limited by pain. DIAGNOSTIC STUDIES/LAB DATA: CBC showed elevated white count of 15.5, hemoglobin of 12.8, hematocrit of 39, platelet count was noted to be 341. Comprehensive metabolic panel was unremarkable, except for elevated C-reactive protein of 18.53. Urinalysis was negative for leukocyte esterase or nitrite. Brain CT showed no acute intracranial abnormality, mild chronic ischemic changes , unchanged from prior. EKG showed sinus bradycardia without any ST elevation, with some premature atrial complexes. CT of the left lower extremity showed large effusion on his left knee, which was tapped by the ER physician. Official read by Radiology is still pending. IMPRESSION: This is a 79-year-old male with multiple medical problems, here due to left lower extremity weakness for the last 36 hours, with accompanying left knee pain and left knee swelling. ASSESSMENT: 1. Left lower extremity weakness: Rule out any stroke, although it could be just secondary to pain related weakness. Neurology was already consulted by the ER physician. We will follow Neurology recommendations and continue with some neuro checks and consider MRI of the brain versus any imaging of his back based on the Neuro recommendation, in the morning. We will keep the patient n.p.o. and consider doing a swallow evaluation in the morning. 2. Left knee swelling: Given his history of gout, it could be just another episode of gouty arthritis, but unable to rule out any sepsis, especially in light of his elevated white count and C-reactive protein. We will start the patient on broad-spectrum antibiotics with vancomycin and Azactam and titrate based on the final cultures and analysis result. 3. History of diabetes: We will check A1c. We will check fingersticks q.6 hours given his n.p.o. status. Once a swallow evaluation is completed in the morning we could consider advancing his diet and also adding any p.o. diet. 4. History of hypertension: Restart home medications. 5. History of hypothyroidism: Restart home medications. 6. History of asthma: Restart home medication. 7. History of depression: Restart home medication. 8. Chronic low-back pain with severe exacerbation: We will start the patient on ibuprofen p.r.n. 9. History of atrial fibrillation: We will monitor the patient on telemetry and continue his anticoagulation. 10. DVT prophylaxis: Patient is already on anticoagulation for Afib. 11. Code status: Full code. is the healthcare proxy. [id number]/CPS #: [id number] MTDD
[2019-08-10] MEDS: Aztreonam (*) 1 GM in NS 0.9% 50 ML* 50 ML IVPB SCH ×3 (02:34→15:57)
[2019-08-10] MEDS: Levothyroxine TAB* 150 MCG TAB PO SCH (05:07)
[2019-08-10] MEDS: Ibuprofen TAB* 600 MG PO PRN ×3 (05:07→21:18)
[2019-08-10] MEDS: Vancomycin(*) 1,000 MG in NS 0.9% 250 ML* 250 ML IVPB SCH ×3 (05:41→21:17)
[2019-08-10 06:21] LABS: Hematocrit 39 % (42-52); Hemoglobin 13.2 g/dL (14.0-18.0); Mean Corpuscular HGB Conc 34 g/dL (31-36); Mean Corpuscular Hemoglobin 30 pg (27-31); Mean Corpuscular Volume 90 fL (80-94); Mean Platelet Volume 7.9 fL (7.4-10.4); Platelet Count 346 10^3/uL (150-450); Red Blood Count 4.35 10^6 /uL (4.18-5.48); Red Cell Distribution Width 16 % (10-15); White Blood Count 14.4 10^3/uL (3.5-10.8)
[2019-08-10 06:29] LABS: BUN/Creatinine Ratio 21.1 (8-20); Calcium 9.1 mg/dL (8.6-10.3); EGFR African American 120.3 (>60); EGFR Non-African American 99.5 (>60); HDL Cholesterol 39.6 mg/dL; Potassium 3.7 mmol/L (3.5-5.0)
[2019-08-10 06:47] LABS: ABS Basophils 0.1 10^3/ul (0-0.2); ABS Eosinophils 0.3 10^3/ul (0-0.6); ABS Lymphocytes 0.5 10^3/ul (1.0-4.8); ABS Monocytes 2.5 10^3/ul (0-0.8); ABS Neutrophils 11.1 10^3/ul (1.5-7.7); Eosinophil % 1.9 %; Lymphocyte % 3.5 %
[2019-08-10] MEDS: Metoprolol Tartrate TAB* 25 MG PO SCH ×2 (07:53→17:17)
[2019-08-10] MEDS: Apixaban* 5 MG TAB PO SCH ×2 (07:53→21:18)
[2019-08-10] MEDS: Sertraline* 50 MG TAB PO SCH (07:54)
[2019-08-10] MEDS: metFORMIN* 500 MG TAB PO SCH ×2 (08:42→17:18)
[2019-08-10] MEDS: Calamine LOTION* 120 ML TOPICAL SCH ×4 (08:45→21:19)
[2019-08-10] MEDS ORDERED: Influenza VAC *QUAD* 2019-20* 0.5 ML SYRINGE IM ONE (09:00)
[2019-08-10] MEDS ORDERED: Colchicine* 0.6 MG TAB PO ONE (10:07)
--- NOTE | 2019-08-10 14:34 | PN ---
Subjective Date of Service: 08/10/19 Interval History: History revisited, Progressive left knee pain and left leg weakness for 1 month. Patient still felt significant left knee pain, unable to bend left knee. No fever, chills. Objective Active Medications: Albuterol (Ventolin Hfa Inhaler*) 1 puff INH Q6H PRN PRN Reason: SHORTNESS OF BREATH Apixaban (Eliquis*) 5 mg PO BID [facility] Last Admin: 08/10/19 07:53 Dose: 5 mg Atorvastatin Calcium (Lipitor*) 10 mg PO QPM [facility] Calamine (Calamine Lotion*) 1 applic TOPICAL QID [facility] Last Admin: 08/10/19 13:31 Dose: 1 applic Colchicine (Colcrys*) 0.6 mg PO DAILY [facility] Aztreonam 1 gm/ Sodium (Chloride) 50 mls @ 200 mls/hr IVPB 0000,0800,1600 [facility] Last Admin: 08/10/19 10:34 Dose: 200 mls/hr Vancomycin HCl 1,000 mg/ (Sodium Chloride) 250 mls @ 166.667 mls/hr IVPB Q8H [facility] Last Admin: 08/10/19 13:31 Dose: 166.667 mls/hr Ibuprofen (Motrin Tab*) 600 mg PO Q6H PRN PRN Reason: PAIN - MODERATE Last Admin: 08/10/19 05:07 Dose: 600 mg Levothyroxine Sodium (Synthroid Tab*) 150 mcg PO 0600 [facility] Last Admin: 08/10/19 05:07 Dose: 150 mcg Metformin HCl (Glucophage*) 750 mg PO BID WITH MEALS [facility] Last Admin: 08/10/19 08:42 Dose: 750 mg Metoprolol Tartrate (Lopressor Tab*) 25 mg PO BID WITH MEALS [facility] Last Admin: 08/10/19 07:53 Dose: 25 mg Montelukast Sodium (Singulair Tab*) 10 mg PO QPM [facility] Pharmacy Consult (Vancomycin Per Pharmacy*) 1 note FOLLOW UP .VANC PER PHARMACY [facility]; Protocol Pharmacy Profile Note (Vancomycin Trough Check) 1 note FOLLOW UP 0600 ONE Stop: 08/11/19 06:01 Sertraline HCl (Zoloft*) 50 mg PO DAILY [facility] Last Admin: 08/10/19 07:54 Dose: 50 mg Vital Signs - 8 hr 08/10/19 08/10/19 08/10/19 07:00 08:00 11:00 Temperature 99.4 F 98.8 F Pulse Rate 73 58 Respiratory 20 20 20 Rate Blood Pressure 152/74 122/60 (mmHg) O2 Sat by Pulse 100 100 Oximetry Oxygen Devices in Use Now: None Exam: Exam: Appearance: comfortable, not in acute distress. Eyes: No Scleral Icterus Ears/Nose/Mouth/Throat: NL Teeth, Lips, Gums Neck: NL Appearance and Movements; NL JVP Respiratory: Symmetrical Chest Expansion and Respiratory Effort Cardiovascular: RRR, no murmur Abdominal: no tenderness , mild left cva tenderness Lymphatic: No Cervical Adenopathy Extremities: left knee ROM decreased due to pain left knee joint swelling, fluctuating with significant joint effusion, Neurological: cranial nerve intact muscle strength: 5 over left hip and left foot, unable to assess left knee due to significant pain sensation: intact Result Diagrams: 08/10/19 05:32 08/10/19 05:32 Assess/Plan/Problems-Billing Assessment: 79 years of male with history of DM, recurrent MSSA bacteremia, osteomyelitis of toe, gout, presented with progressive left leg weakness and left knee pain, found to have purulent left knee effusion, concerning for septic arthritis or inflammatory arthritis. - Patient Problems (1) Knee pain, left Current Visit: Yes Status: Acute Code(s): M25.562 - PAIN IN LEFT KNEE SNOMED Code(s): 96255694 Comment: - left knee pain with purulent joint fluid and WBC 99722 but neg gram stain, concerning for septic arthritis, inflammatory arthritis including gout still possible - a/w fluid crystal results and fluid c/s - continue iv aztreonam and vancomycin - consult orthopedic today for joint washout - start colchicine to treat empirically for gout as well (2) DVT prophylaxis Current Visit: No Status: Acute Priority: Medium Code(s): JYR0999 - SNOMED Code(s): 126318248 Comment: on eliquis for his paf (3) PAF (paroxysmal atrial fibrillation) Current Visit: No Status: Acute Code(s): I48.0 - PAROXYSMAL ATRIAL FIBRILLATION SNOMED Code(s): 537231467 Comment: rate controlled continue eliquis (4) DM type 2 (diabetes mellitus, type 2) Current Visit: No Status: Chronic Priority: Medium Comment: - continue metformin - continue glucose monitoring AC (5) Full code status Current Visit: No Status: Acute Code(s): Z78.9 - OTHER SPECIFIED HEALTH STATUS SNOMED Code(s): 025605937 Status and Disposition: Inpatient Medicine. Attestation Documenting Resident: Reena Fan Supervising Physician: Agapito Quesada Attending/Supervising Physician Comment: Agree with plan as outlined in Dr. Fan's note from today unless indicated here. Left knee with effusion but less pain today. No pain with passive range of movement. Continue with abx. Ortho consulting, plan to monitor and wait for cultures. Crystals sent and pending. Attestation: This service has been performed in part by a resident under the direction of a teaching physician.I, Agapito Quesada, performed the service, or was physically present during the critical, or llanos portions of the service, furnished by the resident. I participated in the management of the patient.
[2019-08-10] MEDS: Montelukast Sodium TAB* 10 MG PO SCH (17:17)
[2019-08-10] MEDS: Atorvastatin* 10 MG TAB PO SCH (17:18)
[2019-08-10] MEDS: oxyCODONE TAB* 5 MG TAB PO PRN (21:17)
--- NOTE | 2019-08-10 21:24 | CONS ---
CONSULTATION REPORT: DATE OF CONSULT: 08/10/19 HISTORY OF PRESENT ILLNESS: Norbert is an alert 79-year-old gentleman with diabetes, sleep apnea, pre vious osteomyelitis of the right forefoot, which required toe amputation and whole body eczema. He h ad 24 hours of swelling and pain in his left knee with some difficulty bearing weight. He has been a dmitted through the emergency room yesterday and had his knee tapped and has now been on some antibio tics and observation on the medical service. He has been feeling better today after having been star yesika on some antibiotics and after the knee was tapped. He has had a minor increase in his white count from 15.5 and now 14.4. The fluid that was sent from the knee has had no growth thus far and negati ve Gram stain as well. He does have a history of gout in the past. PHYSICAL EXAM: On examination, Mr. Pierce is sitting up in bed, in no acute distress. He smiles when he tells me that his knee feels much better than it did yesterday. There is still some puffiness at the left knee, but it is slightly warmer than the right. He is able to extend it to about -10 degre es and flex to about 90. His neurocirculatory status is intact in the foot and he has 5/5 ankle rang e of motion. DIAGNOSTIC STUDIES/LAB DATA: His fluid that was sent for analysis showed white count of 15,000, nega tive Gram stain. Unfortunately, crystals have been sent, but would not be available or read out unti l after the weekend. ASSESSMENT AND PLAN: For the history of gout, he has been started on colchicine and empirical antibi otics of vancomycin and aztreonam. Given no growth so far, negative Gram stain, I would observe his course over the next 24 hours to see if there is increasing range of motion and decreasing pain brandyn g forward. We will follow with the medical team. [id number]/[facility] #: [id number]
[2019-08-11] MEDS: Aztreonam (*) 1 GM in NS 0.9% 50 ML* 50 ML IVPB SCH ×3 (01:05→16:59)
[2019-08-11] MEDS: Ibuprofen TAB* 600 MG PO PRN (03:30)
[2019-08-11] MEDS: oxyCODONE TAB* 5 MG TAB PO PRN ×2 (03:30→20:51)
[2019-08-11] MEDS: Levothyroxine TAB* 150 MCG TAB PO SCH (05:59)
[2019-08-11] MEDS ORDERED: Vancomycin Trough Check NOTE FOLLOW UP ONE (06:00)
[2019-08-11] MEDS: Vancomycin(*) 1,000 MG in NS 0.9% 250 ML* 250 ML IVPB SCH ×3 (06:40→22:21)
[2019-08-11] MEDS: Sertraline* 50 MG TAB PO SCH (09:46)
[2019-08-11] MEDS: Colchicine* 0.6 MG TAB PO SCH (09:46)
[2019-08-11] MEDS: metFORMIN* 500 MG TAB PO SCH ×2 (09:46→16:59)
[2019-08-11] MEDS: Metoprolol Tartrate TAB* 25 MG PO SCH ×2 (09:47→16:59)
[2019-08-11] MEDS: Apixaban* 5 MG TAB PO SCH ×2 (09:47→20:40)
--- NOTE | 2019-08-11 10:08 | PN ---
Subjective Date of Service: 08/11/19 Interval History: Seen with at bedside. Reports he is "a little confused" which is not unusual especially when he is in the hospital She has concerns that he has early dementia. He forgets where he is and might confuse events He is reporting no pain in his left knee today He cannot comment on any left leg weakness because he has not tried to walk No CP, SOB, N/V, LH Crystals still pending WBC slightly improved Objective Active Medications: Albuterol (Ventolin Hfa Inhaler*) 1 puff INH Q6H PRN PRN Reason: SHORTNESS OF BREATH Apixaban (Eliquis*) 5 mg PO BID [facility] Last Admin: 08/11/19 09:47 Dose: 5 mg Atorvastatin Calcium (Lipitor*) 10 mg PO QPM [facility] Last Admin: 08/10/19 17:18 Dose: 10 mg Calamine (Calamine Lotion*) 1 applic TOPICAL QID [facility] Last Admin: 08/10/19 21:19 Dose: 1 applic Colchicine (Colcrys*) 0.6 mg PO DAILY [facility] Last Admin: 08/11/19 09:46 Dose: 0.6 mg Aztreonam 1 gm/ Sodium (Chloride) 50 mls @ 200 mls/hr IVPB 0000,0800,1600 [facility] Last Admin: 08/11/19 09:45 Dose: 200 mls/hr Vancomycin HCl 1,000 mg/ (Sodium Chloride) 250 mls @ 166.667 mls/hr IVPB Q8H [facility] Last Admin: 08/11/19 06:40 Dose: 166.667 mls/hr Ibuprofen (Motrin Tab*) 600 mg PO Q6H PRN PRN Reason: PAIN - MODERATE Last Admin: 08/11/19 03:30 Dose: 600 mg Levothyroxine Sodium (Synthroid Tab*) 150 mcg PO 0600 [facility] Last Admin: 08/11/19 05:59 Dose: 150 mcg Metformin HCl (Glucophage*) 750 mg PO BID WITH MEALS [facility] Last Admin: 08/11/19 09:46 Dose: 750 mg Metoprolol Tartrate (Lopressor Tab*) 25 mg PO BID WITH MEALS [facility] Last Admin: 08/11/19 09:47 Dose: 25 mg Montelukast Sodium (Singulair Tab*) 10 mg PO QPM [facility] Last Admin: 08/10/19 17:17 Dose: 10 mg Oxycodone HCl (Roxycodone Tab*) 5 mg PO Q6H PRN PRN Reason: PAIN - SEVERE Last Admin: 08/11/19 03:30 Dose: 5 mg Pharmacy Consult (Vancomycin Per Pharmacy*) 1 note FOLLOW UP .VANC PER PHARMACY [facility]; Protocol Pharmacy Profile Note (Vancomycin Trough Check) 1 note FOLLOW UP 0600 ONE Stop: 08/14/19 06:01 Sertraline HCl (Zoloft*) 50 mg PO DAILY [facility] Last Admin: 08/11/19 09:46 Dose: 50 mg Vital Signs - 8 hr 08/11/19 08/11/19 08/11/19 03:00 03:30 05:30 Temperature 97.2 F Pulse Rate 69 Respiratory 18 18 16 Rate Blood Pressure 120/59 (mmHg) O2 Sat by Pulse 100 Oximetry 08/11/19 07:00 Temperature 98.1 F Pulse Rate 66 Respiratory 16 Rate Blood Pressure 149/76 (mmHg) O2 Sat by Pulse 99 Oximetry Oxygen Devices in Use Now: None Appearance: sitting on edge of bed, NAD Eyes: No Scleral Icterus, PERRLA Ears/Nose/Mouth/Throat: NL Teeth, Lips, Gums, Clear Oropharnyx Neck: NL Appearance and Movements; NL JVP, Trachea Midline Respiratory: Symmetrical Chest Expansion and Respiratory Effort, Clear to Auscultation Cardiovascular: RRR Abdominal: NL Sounds; No Tenderness; No Distention, No Hepatosplenomegaly Extremities: - - left knee with large effusion mostly located suprapatellar but component of infrapatellar also Neurological: - - AO2 2 to self and hospital, could not name year but guessed 2016 with prompting, strength 5/5 thorughout except left leg extension at the knee, cn 2-12 intact Result Diagrams: 08/10/19 05:32 08/10/19 05:32 Microbiology and Other Data: Microbiology 08/09/19 23:11 Gram Stain - Final Joint Fluid(Synovial) Body Fluid Culture - Preliminary No Growth Day 1 Skin and Soft Tissue MRSA/MSSA (PCR - Final Mrsa Negative S.aureus Negative Assess/Plan/Problems-Billing Assessment: 79 years of male with history of DM2, recurrent MSSA bacteremia, osteomyelitis of toe, gout that has mostly affected his toes presented with progressive left leg weakness and left knee pain, found to have left knee effusion - Patient Problems (1) Knee pain, left Comment: - left knee pain with effusion notable for WBC 82873 but neg gram stain - dx likely septic arthritis v inflammatory arthritis v crystal arthropathy - improved rapidly on abx and colchicine as well as fluid removal. Negative gram stain and improved pain argue for gout especially with h/o gout although never had gout in knee before. - fluid crystals are pending likely to return Monday-Monday which is the labs best guess - continue iv aztreonam and vancomycin until fluid culture negative/final or crystals return - no plans for orthopedic surgery to perform washout - c/w colchicine - PT/OT (2) Weakness Comment: On presentation concern for LLE weakness that pt described as difficulty walking up stairs. Now that pain is resolved exam notable for no weakness in his left LE (3) PAF (paroxysmal atrial fibrillation) Comment: rate controlled on home metoprolol BID continue eliquis (4) DM type 2 (diabetes mellitus, type 2) Comment: - continue metformin - stop FSG (5) Full code status (6) DVT prophylaxis Comment: on eliquis for his paf Status and Disposition: Inpatient Medicine for IV abx pending final culture and/or crystal results
--- NOTE | 2019-08-11 10:25 | PN ---
PROGRESS NOTE: DATE OF SERVICE: 08/11/19 SUMMARY: Norbert is sitting up in bed, eating his breakfast with a smile on his face. He has been in hospital few days now and getting some broad-spectrum antibiotics for his knee. He also has been on gap treatment. He feels much better and he is making steady progress every day. He bends the knee to 90 and straightens out without any pain. He still has this significant erythematous rash diffusely over both lower extremities, but he has had that for years now. He does not have any new laboratory yet today, but he remains afebrile 98.1, other vital signs stable as well. No growth thus far on the aspirate from his knee, gram-stain was negative. Crystals will be pending tomorrow. My plan for him from an orthopedic standpoint would be continued observation, monitoring the growth on culture as well as the crystal analysis. The aspirate could be very much consistent with a crystal and arthropathy at this date. [id number]/[facility]PS #: [id number] [facility]
[2019-08-11] MEDS: Calamine LOTION* 120 ML TOPICAL SCH ×4 (11:56→20:40)
[2019-08-11] MEDS: Montelukast Sodium TAB* 10 MG PO SCH (16:59)
[2019-08-11] MEDS: Atorvastatin* 10 MG TAB PO SCH (16:59)
[2019-08-12] MEDS: Aztreonam (*) 1 GM in NS 0.9% 50 ML* 50 ML IVPB SCH ×3 (00:19→18:17)
[2019-08-12] MEDS: Ibuprofen TAB* 600 MG PO PRN (00:57)
[2019-08-12] MEDS: Vancomycin(*) 1,000 MG in NS 0.9% 250 ML* 250 ML IVPB SCH ×3 (05:16→21:32)
[2019-08-12] MEDS: Levothyroxine TAB* 150 MCG TAB PO SCH (05:20)
--- NOTE | 2019-08-12 07:12 | PN ---
Subjective Date of Service: 08/12/19 Interval History: HD#4 79 years of male with history of DM2, recurrent MSSA bacteremia, osteomyelitis of toe, gout that has mostly affected his toes presented with progressive left leg weakness and left knee pain, found to have left knee effusion Overnight: removed iv line; because of itchiness Vitals stable His pain and redness are decreasing today; Feels improved; Can move his left knee Complains if constipation WBC normalizing. Uric Acid 6.8 Objective Active Medications: Albuterol (Ventolin Hfa Inhaler*) 1 puff INH Q6H PRN PRN Reason: SHORTNESS OF BREATH Apixaban (Eliquis*) 5 mg PO BID [facility] Last Admin: 08/11/19 20:40 Dose: 5 mg Atorvastatin Calcium (Lipitor*) 10 mg PO QPM [facility] Last Admin: 08/11/19 16:59 Dose: 10 mg Calamine (Calamine Lotion*) 1 applic TOPICAL QID [facility] Last Admin: 08/11/19 20:40 Dose: 1 applic Colchicine (Colcrys*) 0.6 mg PO DAILY [facility] Last Admin: 08/11/19 09:46 Dose: 0.6 mg Aztreonam 1 gm/ Sodium (Chloride) 50 mls @ 200 mls/hr IVPB 0000,0800,1600 [facility] Last Admin: 08/12/19 00:19 Dose: 200 mls/hr Vancomycin HCl 1,000 mg/ (Sodium Chloride) 250 mls @ 166.667 mls/hr IVPB Q8H [facility] Last Admin: 08/12/19 05:16 Dose: 166.667 mls/hr Ibuprofen (Motrin Tab*) 600 mg PO Q6H PRN PRN Reason: PAIN - MODERATE Last Admin: 08/12/19 00:57 Dose: 600 mg Levothyroxine Sodium (Synthroid Tab*) 150 mcg PO 0600 [facility] Last Admin: 08/12/19 05:20 Dose: 150 mcg Metformin HCl (Glucophage*) 750 mg PO BID WITH MEALS [facility] Last Admin: 08/11/19 16:59 Dose: 750 mg Metoprolol Tartrate (Lopressor Tab*) 25 mg PO BID WITH MEALS [facility] Last Admin: 08/11/19 16:59 Dose: 25 mg Montelukast Sodium (Singulair Tab*) 10 mg PO QPM [facility] Last Admin: 08/11/19 16:59 Dose: 10 mg Oxycodone HCl (Roxycodone Tab*) 5 mg PO Q6H PRN PRN Reason: PAIN - SEVERE Last Admin: 08/11/19 20:51 Dose: 5 mg Pharmacy Consult (Vancomycin Per Pharmacy*) 1 note FOLLOW UP .VANC PER PHARMACY KEE; Protocol Pharmacy Profile Note (Vancomycin Trough Check) 1 note FOLLOW UP 0600 ONE Stop: 08/14/19 06:01 Sertraline HCl (Zoloft*) 50 mg PO DAILY [facility] Last Admin: 08/11/19 09:46 Dose: 50 mg Vital Signs - 8 hr 08/12/19 04:23 Temperature 98.0 F Pulse Rate 73 Respiratory 20 Rate Blood Pressure 139/59 (mmHg) O2 Sat by Pulse 100 Oximetry Oxygen Devices in Use Now: None Exam: Patient is lying on a bed with no acute distress HEENT: Normocephalic and atraumatic Lungs: Clear with no added sound Heart: S1/S2 heard with no murmur, rub Abdomen: SOft, nondistended and nontender. NOrmal BS heard Extremities: Redness and swelling on left knee. Decreased RoM Neuro: alert, orineted and conscious Result Diagrams: 08/12/19 07:47 08/12/19 07:47 Microbiology and Other Data: Microbiology 08/09/19 23:11 Gram Stain - Final Joint Fluid(Synovial) Body Fluid Culture - Preliminary No Growth Day 1 Skin and Soft Tissue MRSA/MSSA (PCR - Final Mrsa Negative S.aureus Negative Assess/Plan/Problems-Billing Assessment: 79 years of male with history of DM2, recurrent MSSA bacteremia, osteomyelitis of toe, gout that has mostly affected his toes presented with progressive left leg weakness and left knee pain, found to have left knee effusion. Septic vs Gout. On vanco and aztreonam(day 3) - Patient Problems (1) Knee pain, left Current Visit: Yes Status: Acute Code(s): M25.562 - PAIN IN LEFT KNEE SNOMED Code(s): 92770052 Comment: - septic vs gout -awaiting crystal results -Improving; able to move his left knee -ON iv vanco and aztreonam(day 3) ON colchicine; has hx of crystal arthropathy PT/OT; needs homecare (2) PAF (paroxysmal atrial fibrillation) Current Visit: Yes Status: Acute Code(s): I48.0 - PAROXYSMAL ATRIAL FIBRILLATION SNOMED Code(s): 909063620 Comment: rate controlled on home metoprolol BID continue eliquis (3) DM type 2 (diabetes mellitus, type 2) Current Visit: Yes Status: Chronic Priority: Medium Comment: - continue metformin (4) DVT prophylaxis Current Visit: Yes Status: Acute Priority: Medium Code(s): WNO5188 - SNOMED Code(s): 813455444 Comment: on eliquis for his paf (5) Full code status Current Visit: Yes Status: Acute Code(s): Z78.9 - OTHER SPECIFIED HEALTH STATUS SNOMED Code(s): 164594316 Status and Disposition: Inpatient Medicine for IV abx; awaiting crystals results. Attending: Pauline Fried Attestation Documenting Resident: Yuly Fuentes Supervising Physician: Pauline Fried Attending/Supervising Physician Comment: Agree with resident note with following brief addendum: HD 4 on 08/12 79M NIDDM2, hx of osteomyelitis of toe (cb MSSA bacteremia), gout, Afib on AC, hypothyroidism, depression, presented with progressive left leg weakness and left knee pain, found to have left knee effusion, sp arthrocentesis on day of admission Overnight no acute events VSS, mild HTN Labs BMP 08/12 normal #Knee effusion: WBC elevated, though gram stain and cx NGTD, ddx septic vs gout , has hx of crystal arthropathy -Cuyrrently on Day 4 of Vanc and Aztrenoam -Crystal ID likely Tu/Wed on Colchicine for Gout flare -Pain control with Oxy #Weakness: Improved s/p arthrocentesis #Hypothyroid: Home meds #Afib: On Eliquis and rate control #Depression: Sertraline #NIDDM: Home meds, holding Januvia #DVT: Therapeutically AC #Code: Full #Dispo: If clniically well consider d/c 08/13 Attestation: This service has been performed in part by a resident under the direction of a teaching physician.I, Pauline Fried, performed the service, or was physically present during the critical, or llanos portions of the service, furnished by the resident. I participated in the management of the patient.
[2019-08-12] MEDS: Metoprolol Tartrate TAB* 25 MG PO SCH ×2 (08:06→18:17)
[2019-08-12] MEDS: Colchicine* 0.6 MG TAB PO SCH (08:07)
[2019-08-12] MEDS: Sertraline* 50 MG TAB PO SCH (08:07)
[2019-08-12] MEDS: metFORMIN* 500 MG TAB PO SCH ×2 (08:08→18:17)
[2019-08-12] MEDS: Apixaban* 5 MG TAB PO SCH ×2 (08:08→21:32)
[2019-08-12] MEDS: Calamine LOTION* 120 ML TOPICAL SCH ×4 (08:09→21:32)
--- NOTE | 2019-08-12 08:14 | PN ---
Hospitalist Progress Note Date of Service: 08/12/19 HD 4 on 08/12 79M NIDDM2, hx of osteomyelitis of toe (cb MSSA bacteremia), gout, Afib on AC, hypothyroidism, depression, presented with progressive left leg weakness and left knee pain, found to have left knee effusion, sp arthrocentesis on day of admission Overnight no acute events VSS, mild HTN Labs BMP 08/12 normal #Knee effusion: WBC elevated, though gram stain and cx NGTD, ddx septic vs gout , has hx of crystal arthropathy -Cuyrrently on Day 4 of Vanc and Aztrenoam -Crystal ID likely /Mon on Colchicine for Gout flare -Pain control with Oxy #Weakness: Improved s/p arthrocentesis #Hypothyroid: Home meds #Afib: On Eliquis and rate control #Depression: Sertraline #NIDDM: Home meds, holding Januvia #DVT: Therapeutically AC #Code: Full #Dispo: If clniically well consider d/c
[2019-08-12 08:18] LABS: BUN/Creatinine Ratio 24.4 (8-20); EGFR African American 116.8 (>60); EGFR Non-African American 96.5 (>60); Magnesium 1.8 mg/dL (1.9-2.7); Potassium 4.1 mmol/L (3.5-5.0)
[2019-08-12 08:28] LABS: Hematocrit 38 % (42-52); Hemoglobin 12.6 g/dL (14.0-18.0); Mean Corpuscular HGB Conc 33 g/dL (31-36); Mean Corpuscular Hemoglobin 30 pg (27-31); Mean Corpuscular Volume 91 fL (80-94); Mean Platelet Volume 7.6 fL (7.4-10.4); Platelet Count 362 10^3/uL (150-450); Red Cell Distribution Width 16 % (10-15); White Blood Count 12.7 10^3/uL (3.5-10.8)
[2019-08-12 09:00] LABS: ABS Lymphocytes 0.7 10^3/ul (1.0-4.8); ABS Monocytes 1.6 10^3/ul (0-0.8); ABS Neutrophils 7.4 10^3/ul (1.5-7.7); Eosinophil % 23.7 %; Lymphocyte % 5.5 %
--- NOTE | 2019-08-12 14:09 | PN ---
PROGRESS NOTE: DATE OF SERVICE: 08/12/19 INTERVAL HISTORY: Norbert was seen on the [address] [place] [address]. He is sitting up in the bed today, cheerful, having no significant pain at all. He is at rest, flexing the knee to about 100 degrees and extends nicely to -10. The effusion has diminished probably at least 70% to 80%. There is no pain with palpation of the knee. No warmth. The patient appears to be responding extremely well to the joint therapy of the gout medication and the antibiotics. Given the rapid improvement, I am leaning more towards a crystalline arthropathy as far as the underlying problem, but it would be nice to get identification on the Gram stain in the next day or two. At this point, I do not see a role for surgical intervention. [id number]/[facility] #: [id number] CHAZ
[2019-08-12] MEDS: Senna TAB 8.6 mg* TAB PO SCH (15:03)
[2019-08-12] MEDS ORDERED: Magnesium Sulfate 2 GM IV* 2 GM/50 ML BAG IVPB ONE (18:00)
[2019-08-12] MEDS: Atorvastatin* 10 MG TAB PO SCH (18:17)
[2019-08-12] MEDS: Montelukast Sodium TAB* 10 MG PO SCH (18:17)
[2019-08-12] MEDS: Naphazoline/Pheniramine OPTH* 5 ML BTL BOTH EYES SCH (21:32)
[2019-08-13] MEDS: Aztreonam (*) 1 GM in NS 0.9% 50 ML* 50 ML IVPB SCH ×3 (00:02→15:02)
[2019-08-13 04:56] LABS: Fluid Type, Protein, Total SYNOVIAL
[2019-08-13 05:09] LABS: Fluid Type, Glucose SYNOVIAL
[2019-08-13 05:14] LABS: Lactate Dehydrogenase, BF 938 U/L
[2019-08-13] MEDS ORDERED: Vancomycin Trough Check NOTE FOLLOW UP ONE (05:30)
[2019-08-13] MEDS: Levothyroxine TAB* 150 MCG TAB PO SCH (06:01)
--- NOTE | 2019-08-13 08:04 | PN ---
Subjective Date of Service: 08/13/19 Interval History: HD#5 on 08/13 79 years of male with history of DM2, Afib on AC, recurrent MSSA bacteremia, osteomyelitis of toe, gout that has mostly affected his toes presented with progressive left leg weakness and left knee pain, found to have left knee effusion; septic vs inflammatory Overnight: Had chest pain; NOrmal Trop; EKG shows some premature atrial complex Vitals stable No complaint at present. No chest pain or palpitation or light headedness. had bowel movement today. COnfused at times; more during night times; According to his he always has confusion when he is in hospital. Objective Active Medications: Albuterol (Ventolin Hfa Inhaler*) 1 puff INH Q6H PRN PRN Reason: SHORTNESS OF BREATH Apixaban (Eliquis*) 5 mg PO BID [facility] Last Admin: 08/12/19 21:32 Dose: 5 mg Atorvastatin Calcium (Lipitor*) 10 mg PO QPM [facility] Last Admin: 08/12/19 18:17 Dose: 10 mg Calamine (Calamine Lotion*) 1 applic TOPICAL QID [facility] Last Admin: 08/12/19 21:32 Dose: 1 applic Colchicine (Colcrys*) 0.6 mg PO DAILY [facility] Last Admin: 08/12/19 08:07 Dose: 0.6 mg Aztreonam 1 gm/ Sodium (Chloride) 50 mls @ 200 mls/hr IVPB 0000,0800,1600 [facility] Last Admin: 08/13/19 00:02 Dose: 200 mls/hr Vancomycin HCl 1,000 mg/ (Sodium Chloride) 250 mls @ 166.667 mls/hr IVPB Q8H [facility] Last Admin: 08/12/19 21:32 Dose: 166.667 mls/hr Ibuprofen (Motrin Tab*) 600 mg PO Q6H PRN PRN Reason: PAIN - MODERATE Last Admin: 08/12/19 00:57 Dose: 600 mg Levothyroxine Sodium (Synthroid Tab*) 150 mcg PO 0600 [facility] Last Admin: 08/13/19 06:01 Dose: 150 mcg Metformin HCl (Glucophage*) 750 mg PO BID WITH MEALS [facility] Last Admin: 08/12/19 18:17 Dose: 750 mg Metoprolol Tartrate (Lopressor Tab*) 25 mg PO BID WITH MEALS [facility] Last Admin: 08/12/19 18:17 Dose: 25 mg Montelukast Sodium (Singulair Tab*) 10 mg PO QPM [facility] Last Admin: 08/12/19 18:17 Dose: 10 mg Naphazoline HCl/Pheniramine Maleate (Naphcon-A*) 1 drop BOTH EYES QID [facility] Last Admin: 08/12/19 21:32 Dose: 1 drop Oxycodone HCl (Roxycodone Tab*) 5 mg PO Q6H PRN PRN Reason: PAIN - SEVERE Last Admin: 08/11/19 20:51 Dose: 5 mg Pharmacy Consult (Vancomycin Per Pharmacy*) 1 note FOLLOW UP .VANC PER PHARMACY [facility]; Protocol Senna (Senokot 8.6 Mg Tab*) 1 tab PO DAILY [facility] Last Admin: 08/12/19 15:03 Dose: 1 tab Sertraline HCl (Zoloft*) 50 mg PO DAILY [facility] Last Admin: 08/12/19 08:07 Dose: 50 mg Vital Signs - 8 hr 08/13/19 08/13/19 03:40 07:42 Temperature 97.8 F Pulse Rate 72 Respiratory 18 16 Rate Blood Pressure 150/67 (mmHg) O2 Sat by Pulse 100 Oximetry Oxygen Devices in Use Now: None Exam: Patient is lying on a bed with no acute distress HEENT: Normocephalic and atraumatic Lungs: Clear with no added sound Heart: S1/S2 heard with no murmur, rub Abdomen: SOft, nondistended and nontender. NOrmal BS heard Extremities: Redness and swelling on left knee. Decreased RoM Neuro: alert, conscious. oriented to self and person. Moving all his extremity equally. Result Diagrams: 08/12/19 07:47 08/13/19 09:16 Microbiology and Other Data: Microbiology 08/09/19 23:11 Gram Stain - Final Joint Fluid(Synovial) Body Fluid Culture - Preliminary No Growth Day 1 Skin and Soft Tissue MRSA/MSSA (PCR - Final Mrsa Negative S.aureus Negative Assess/Plan/Problems-Billing Assessment: 79 years of male with history of DM2, recurrent MSSA bacteremia, osteomyelitis of toe, gout that has mostly affected his toes presented with progressive left leg weakness and left knee pain, found to have left knee effusion. Septic vs cellulitis vs Gout. On vanco and aztreonam(day 4) - Patient Problems (1) Knee pain, left Status: Acute Code(s): M25.562 - PAIN IN LEFT KNEE SNOMED Code(s): 13907367 Comment: - septic vs gout vs cellulitis -awaiting crystal results -Improving; able to move his left knee -ON iv vanco and aztreonam(day 4) ON colchicine; has hx of crystal arthropathy PT/OT; needs homecare can be discharge today (2) PAF (paroxysmal atrial fibrillation) Status: Acute Code(s): I48.0 - PAROXYSMAL ATRIAL FIBRILLATION SNOMED Code(s) : 616439807 Comment: rate controlled on home metoprolol BID continue eliquis (3) DM type 2 (diabetes mellitus, type 2) Status: Chronic Priority: Medium Comment: - continue metformin (4) DVT prophylaxis Status: Acute Priority: Medium Code(s): XJD3461 - SNOMED Code(s): 429705581 Comment: on eliquis for his paf (5) Full code status Status: Acute Code(s): Z78.9 - OTHER SPECIFIED HEALTH STATUS SNOMED Code(s) : 167338107 Status and Disposition: Inpatient Medicine; awaiting crystals results. D/c today will follow up with primary care for his crystal results Attending: Pauline Fried Attestation Documenting Resident: Yuly Fuentes Supervising Physician: Pauline Fried Attending/Supervising Physician Comment: Agree with resident note, attending addendum 79M with history of DM2, Afib on AC, recurrent MSSA bacteremia, osteomyelitis of toe, gout that has mostly affected his toes presented with progressive left leg weakness and left knee pain, found to have left knee effusion; septic vs inflammatory -Stable for discharge today for with tx as gout flare and overlying SSTI of knee Attestation: This service has been performed in part by a resident under the direction of a teaching physician.I, Pauline Fried, performed the service, or was physically present during the critical, or llanos portions of the service, furnished by the resident. I participated in the management of the patient.
[2019-08-13 08:10] LABS: CO2 Carbon Dioxide 19 mmol/L (22-32); Calcium 8.8 mg/dL (8.6-10.3); Chloride 107 mmol/L (101-111); Magnesium 2.3 mg/dL (1.9-2.7); Sodium 133 mmol/L (135-145)
[2019-08-13 08:11] LABS: Troponin I 0.01 ng/mL (<0.04)
[2019-08-13 08:14] LABS: Vancomycin Trough 15.7 mcg/mL
[2019-08-13 08:20] LABS: Anion Gap 7 mmol/L (2-11); BUN/Creatinine Ratio 25.7 (8-20); Blood Urea Nitrogen 18 mg/dL (6-24); EGFR African American 132.3 (>60); EGFR Non-African American 109.4 (>60); Glucose 97 mg/dL (70-100)
[2019-08-13] MEDS: Vancomycin(*) 1,000 MG in NS 0.9% 250 ML* 250 ML IVPB SCH ×2 (08:24→12:24)
[2019-08-13] MEDS: Senna TAB 8.6 mg* TAB PO SCH (08:25)
[2019-08-13] MEDS: Apixaban* 5 MG TAB PO SCH (08:25)
[2019-08-13] MEDS: Colchicine* 0.6 MG TAB PO SCH (08:25)
[2019-08-13] MEDS: metFORMIN* 500 MG TAB PO SCH ×2 (08:25→15:14)
[2019-08-13] MEDS: Metoprolol Tartrate TAB* 25 MG PO SCH (08:25)
[2019-08-13] MEDS: Sertraline* 50 MG TAB PO SCH (08:25)
[2019-08-13] MEDS: Naphazoline/Pheniramine OPTH* 5 ML BTL BOTH EYES SCH ×3 (08:27→15:15)
[2019-08-13] MEDS: Calamine LOTION* 120 ML TOPICAL SCH ×3 (08:27→15:14)
[2019-08-13 12:12] VITALS: BP 139/63
--- NOTE | 2019-08-13 22:06 | DS ---
CC: JAGRUTI Blackwell * DISCHARGE SUMMARY: DATE OF ADMISSION: 08/09/19 DATE OF DISCHARGE: 08/13/19 PRIMARY CARE PROVIDER: JAGRUTI Blackwell. DISPOSITION AT THE TIME OF DISCHARGE: To home and stable. PRIMARY DIAGNOSIS: Left knee cellulitis, possible gout flare. SECONDARY DIAGNOSES: 1. Type 2 diabetes. 2. Atrial fibrillation, on anticoagulation. 3. 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 4. History of osteomyelitis of toe. 5. History of gout. 6. Mild cognitive impairment. 7. Hypertension. 8. Hypothyroidism. 9. History of depression. 10. Benign prostatic hypertrophy. 11. Obesity. 12. Chronic back pain. 13. Obstructive sleep apnea, on BiPAP q.h.s. MEDICATIONS AT THE TIME OF DISCHARGE: 1. Colchicine 0.6 mg q. day for an additional 7 days status post discharge. 2. Visine drops 1 both eyes 4 times daily p.r.n. 3. Bactrim 800/160 one tab p.o. b.i.d. for an additional 4 days status post discharge. 4. Ibuprofen p.r.n. status post discharge 600 mg q.6 hours only for severe pain. 5. Albuterol 1 puff inhaled q.6 hours p.r.n. 6. Apixaban 5 mg p.o. b.i.d. 7. Levothyroxine 150 mcg p.o. daily. 8. Metformin 750 mg p.o. b.i.d. 9. Metoprolol tartrate 25 mg p.o. b.i.d. 10. Montelukast 10 mg p.o. q.p.m. 11. Sertraline 50 mg p.o. daily. 12. Simvastatin 20 mg p.o. q.p.m. 13. Furosemide 20 mg p.o. daily. 14. Sitagliptin 100 mg p.o. daily. Medication changes on this hospitalization include the addition of the Bactrim for 4 days status post discharge, colchicine 7 days status post discharge, p.r.n. ibuprofen to use infrequently in the setting of likely gout flare. HISTORY OF PRESENT ILLNESS AND HOSPITAL COURSE: A 79-year-old male with above past medical history who presented to the emergency room on 08/09/19 evening after he complained of some left lower extremity weakness. The patient said he was in his usual state of health up until yesterday morning where he found that he was limited in terms of his ability to walk. He felt he could not stand up and go anywhere. He said that when he was trying to bear weight on his left leg , he had knee pain, and thus, he decided to come to the emergency room for further evaluation. He had no other associated signs or symptoms. No altered mental status. No urinary incontinence or stool incontinence. No chest pain, shortness of breath, nausea, vomiting, GI, or complaints. He is a poor historian secondary to his cognitive impairment. In the emergency room, he was found to have a very large left knee with effusion and Orthopedics was called to perform arthrocentesis which was done on 08/09/19, which yielded 15 mL of cloudy fluid with 15,000 white blood cells consistent with inflammatory arthropathy, but not concerning for septic joint. He was admitted to the medical service, placed on antibiotics as well as colchicine and his hospital course by problem is as follows: 1. Left knee effusion causing left leg weakness and inability to ambulate. The patient had immediate relief after his arthrocentesis. His joint was not consistent with septic joint, did not require washout. Orthopedics followed and requested antibiotics and colchicine be started. He had rapid improvement. He had overlying skin redness consistent with possible cellulitis of the left leg and this could have also been early gout flare. Crystal identification by the lab was not done at time of dictation. Given his rapid improvement with treatment of both cellulitis and was reasonable to treat him for both on colchicine and Bactrim and complete his treatment status post discharge. He is able to ambulate safely on his own at his baseline and his feels that he is safe to return to his current level of care while living on the first floor only until PT can help challenge him to steps. 2. Dementia/mild cognitive impairment. The patient had some moments of confusion during this hospitalization, but had no behavioral issues. His feels that this is consistent with his baseline. 3. History of diabetes. His home medications were continued. 4. History of hypertension. His home medications were continued. 5. History of hypothyroidism. His home medications were continued. 6. History of asthma. Home medications were continued. 7. History of depression. Home medications were continued. 8. Chronic low back pain. Thought to have an exacerbation. The patient was started on ibuprofen p.r.n. along with his colchicine, which we counseled should be done infrequently for up to 3 to 4 days after discharge. 9. He has a history of AFib and he was continued on his home anticoagulation. On day of discharge, the patient is ambulating, tolerating diet. He did have mild constipation that resolved with bowel regimen. feels that he is at his baseline and knee is much less swollen, less red, and less hot to touch. He can follow up with primary care to determine if he needs to start a uric acid lowering agent in the future, which is discussed in items to follow up on status post discharge. LABS AND STUDIES DONE DURING THIS HOSPITALIZATION: Labs done on 08/13/19 included a BNP which was unremarkable. Last CBC on 08/12/19 showed mild leukocytosis 12.7, which is down from 15.5 on admission. As noted, an arthrocentesis was done on 08/09/19 of synovial fluid of 15 mL which showed cloudy fluid that did not meet septic joint criteria, but consistent with inflammatory arthritis with total cell count of 100 and white blood cells 15, 500 and red blood cells 10,000. Imaging included lower extremity CT on 08/09/19, no acute fractures or dislocations, mild left hip and moderate tricompartmental left knee primary osteoarthritis and associated left knee synovial osteochondromatosis less likely as reported. Brain CT on 08/09/19 shows no acute intracranial abnormality, mild chronic small vessel changes unchanged from prior. An EKG is done on 08/13/19, shows sinus bradycardia with APCs, no other changes. CONSULTANTS DURING THIS HOSPITALIZATION: Included Ortho. ITEMS TO FOLLOW UP ON STATUS POST DISCHARGE: 1. Possible gout flare/left knee cellulitis. The patient came in with mild to moderate cellulitis and possible gout flare with large effusion, not meeting septic joint criteria. He had arthrocentesis with significant relief. Ortho felt that this actually was most likely a gout flare, although the patient has never gout in his knee. Colchicine was given. His uric acid was drawn and is 6.8, and depending on how frequently his gout flares are, primary care can decide whether they want to start a uric acid lowering agent at the discretion of the patient and his family. For now, we will just treat for acute flare and leave decisions about allopurinol or other medications up to family and primary care. 2. Leukocytosis. This was improving and likely reactive. Can be followed up by primary care if they wish, although no clear indication. TIME SPENT: 35 minutes was spent on the planning of this discharge with over half of that was spent directly at the bedside with the patient providing direct patient care. Plan of care was discussed with the patient and his who agree with return to home, have no further questions. They have home care nursing in place as well as PT. This discharge summary is of number of complex events that happened during the course of a 5-day hospitalization. If there are any questions about the care of this patient during this hospitalization, please do not hesitate to reach out or contact us directly. [id number]/[facility] #: [id number] CHAZ
== END 2019-08-13 15:40 | disposition home or self-care (01) | DRG 565 ==
LOC: ED 16:00 → MEDTELE 23:17
PROVIDERS: ADMIT Internal Medicine; ATTEND Internal Medicine
PROC: 0S9D3ZZ Drainage of Left Knee Joint, Percutaneous Approach (ICD-10-PCS; principal; 2019-08-09)
DX: M25.462 Effusion, left knee (principal); L03.116 Cellulitis of left lower limb; F03.90 Unspecified dementia, unspecified severity, without behavioral disturbance, psychotic disturbance, mood disturbance, and anxiety; M10.9 Gout, unspecified; E11.9 Type 2 diabetes mellitus without complications; I48.0 Paroxysmal atrial fibrillation; I10 Essential (primary) hypertension; E03.9 Hypothyroidism, unspecified; F32.9 Major depressive disorder, single episode, unspecified; N40.0 Benign prostatic hyperplasia without lower urinary tract symptoms; E66.01 Morbid (severe) obesity due to excess calories; J45.909 Unspecified asthma, uncomplicated; M54.9 Dorsalgia, unspecified; G47.33 Obstructive sleep apnea (adult) (pediatric); L30.9 Dermatitis, unspecified; M19.90 Unspecified osteoarthritis, unspecified site; Z68.32 Body mass index [BMI] 32.0-32.9, adult; Z99.89 Dependence on other enabling machines and devices; Z79.01 Long term (current) use of anticoagulants; Z79.84 Long term (current) use of oral hypoglycemic drugs; Z79.51 Long term (current) use of inhaled steroids; Z79.899 Other long term (current) drug therapy; Z91.010 Allergy to peanuts; Z88.0 Allergy status to penicillin; Z88.8 Allergy status to other drugs, medicaments and biological substances; Z91.048 Other nonmedicinal substance allergy status; Z80.0 Family history of malignant neoplasm of digestive organs; Z87.891 Personal history of nicotine dependence
CPT/HCPCS: 36415; 70450; 80048; 80053; 80061; 80202; 81003; 82945; 83036; 83605; 83615; 83735; 84157; 84443; 84484; 84550; 85025; 86140; 87070; 87205; 87640; 87641; 89051; 89060; 90686; 93005; 96365; 96375; 99285; A9270-GY; G8978-GP-CJ; G8979-GP-CI; G8987-GO-CK; G8988-GO-CI; J1200; J3370; J3475; Q9967

== ENCOUNTER 2022-07-31 16:44 | Observation (INO) ==
[2022-07-31] MEDS ORDERED: Lactated Ringers 1000 ml BAG 1,000 ML IV ONE (16:55)
[2022-07-31 17:19] LABS: ABS Basophils 0.1 10^3/ul (0-0.2); ABS Eosinophils 0.2 10^3/ul (0-0.6); ABS Lymphocytes 0.3 10^3/ul (1.0-4.8); ABS Neutrophils 6.1 10^3/ul (1.5-7.7); Eosinophil % 2.9 %; Hematocrit 43 % (42-52); Hemoglobin 14.1 g/dL (14.0-18.0); Lymphocyte % 3.6 %; Mean Corpuscular HGB Conc 33 g/dL (31-36); Mean Corpuscular Hemoglobin 30 pg (27-31); Mean Corpuscular Volume 91 fL (80-94); Mean Platelet Volume 7.4 fL (7.4-10.4); Platelet Count 263 10^3/uL (150-450); Red Blood Count 4.73 10^6 /uL (4.18-5.48); Red Cell Distribution Width 16 % (10-15); White Blood Count 7.7 10^3/uL (3.5-10.8)
[2022-07-31 17:53] LABS: Albumin 4.2 g/dL (3.2-5.2); Albumin/Globulin Ratio 1.4 (1-3); C Reactive Protein 6.91 mg/L (<8.01); Calcium 9.3 mg/dL (8.6-10.3); Globulin 3.1 g/dL (2-4); Magnesium 1.9 mg/dL (1.9-2.7); Total Bilirubin 0.5 mg/dL (0.2-1.0); Total Protein 7.3 g/dL (6.4-8.9); eGFR CKD-EPI 71.8 (>60)
[2022-07-31 18:28] LABS: Potassium 4.5 mmol/L (3.5-5.0)
[2022-07-31 18:33] LABS: Urine Appearance Cloudy; Urine Bilirubin Negative (Negative); Urine Blood 2+ (Negative); Urine Color Yellow; Urine Glucose Negative (Negative); Urine Ketones Negative (Negative); Urine Nitrite Positive (Negative); Urine Protein 1+(30 mg/dL) (Negative); Urine Specific Gravity 1.015 (1.002-1.030); Urine Urobilinogen Negative (Negative)
[2022-07-31 18:36] LABS: Urine Bacteria 1+ (Absent); Urine Red Blood Cell 3+(>10/hpf) (Absent); Urine Squamous Epithelial Cell Present (Absent); Urine White Blood Cell 3+(>20/hpf) (Absent)
[2022-07-31] MEDS ORDERED: cefTRIAXone 1 gm/50 mL D5W 1 GM/50 ML BAG IV ONE (18:41)
[2022-07-31 18:50] LABS: High Sensitivity Troponin 1 Hr 6 pg/mL (<20)
[2022-07-31 21:05] LABS: Urine Appearance Turbid; Urine Bilirubin Negative (Negative); Urine Blood 3+ (Negative); Urine Color Amber; Urine Glucose Negative (Negative); Urine Ketones Negative (Negative); Urine Nitrite Positive (Negative); Urine Protein 2+(100 mg/dL) (Negative); Urine Specific Gravity 1.019 (1.002-1.030); Urine Urobilinogen Negative (Negative)
[2022-07-31 21:08] LABS: Urine Bacteria Absent (Absent); Urine Red Blood Cell 3+(>10/hpf) (Absent); Urine White Blood Cell 3+(>20/hpf) (Absent)
[2022-07-31] MEDS ORDERED: Albuterol HFA INHALER 8 gm MDI INH PRN (21:34)
[2022-07-31] MEDS ORDERED: Dextrose 50% Syringe 50 ml 25 GM/50 ML SYRINGE IV PUSH PRN (21:36)
[2022-07-31] MEDS ORDERED: Remdesivir 100 mg Vial 200 MG in NS 0.9% 250 ml 210 ML IV ONE (22:18)
[2022-08-01 01:38] LABS: INR 1.44 (0.89-1.11)
[2022-08-01 05:06] LABS: Hematocrit 39 % (42-52); Hemoglobin 12.9 g/dL (14.0-18.0); Mean Corpuscular HGB Conc 33 g/dL (31-36); Mean Corpuscular Hemoglobin 30 pg (27-31); Mean Corpuscular Volume 90 fL (80-94); Mean Platelet Volume 7.1 fL (7.4-10.4); Platelet Count 229 10^3/uL (150-450); Red Blood Count 4.36 10^6 /uL (4.18-5.48); Red Cell Distribution Width 16 % (10-15); White Blood Count 4.4 10^3/uL (3.5-10.8)
[2022-08-01 05:10] LABS: INR 1.71 (0.89-1.11)
[2022-08-01 05:31] LABS: ABS Eosinophils 0.1 10^3/ul (0-0.6); ABS Lymphocytes 0.7 10^3/ul (1.0-4.8); ABS Monocytes 1.2 10^3/ul (0-0.8); ABS Neutrophils 2.5 10^3/ul (1.5-7.7); Anisocytosis 1+; Eosinophil % 1.2 %; Nucleated Red Blood Cells % 0.1
[2022-08-01 05:35] LABS: Albumin 3.7 g/dL (3.2-5.2); Albumin/Globulin Ratio 1.3 (1-3); Calcium 8.6 mg/dL (8.6-10.3); Globulin 2.8 g/dL (2-4); Potassium 3.8 mmol/L (3.5-5.0); Total Bilirubin 0.4 mg/dL (0.2-1.0); Total Protein 6.5 g/dL (6.4-8.9)
[2022-08-01 05:50] LABS: TSH Ultra Thyroid Stim Horm 1.08 mcIU/mL (0.34-5.60)
[2022-08-01] MEDS ORDERED: Metformin ER 500 mg TAB (NF) PO SCH (14:00)
[2022-08-01] MEDS: CMC: SitaGLIPtin 100 mg TAB (NF) PO SCH (17:33)
[2022-08-01] MEDS ORDERED: cefTRIAXone 1 gm/50 mL D5W 1 GM/50 ML BAG IV SCH ×2 (20:00)
[2022-08-01] MEDS ORDERED: Remdesivir 100 mg Vial 100 MG in NS 0.9% 250 ml 230 ML IV SCH (21:00)
[2022-08-02 06:25] LABS: Hematocrit 42 % (42-52); Hemoglobin 13.8 g/dL (14.0-18.0); Mean Corpuscular HGB Conc 33 g/dL (31-36); Mean Corpuscular Hemoglobin 30 pg (27-31); Mean Corpuscular Volume 90 fL (80-94); Mean Platelet Volume 7.3 fL (7.4-10.4); Platelet Count 217 10^3/uL (150-450); Red Blood Count 4.66 10^6 /uL (4.18-5.48); Red Cell Distribution Width 16 % (10-15); White Blood Count 4.5 10^3/uL (3.5-10.8)
[2022-08-02 06:32] LABS: INR 1.58 (0.89-1.11)
[2022-08-02 06:51] LABS: Calcium 8.9 mg/dL (8.6-10.3); Magnesium 1.8 mg/dL (1.9-2.7); Potassium 4.2 mmol/L (3.5-5.0); eGFR CKD-EPI 81.9 (>60)
[2022-08-02 06:53] LABS: ABS Eosinophils 0.1 10^3/ul (0-0.6); ABS Lymphocytes 0.9 10^3/ul (1.0-4.8); ABS Monocytes 1.2 10^3/ul (0-0.8); ABS Neutrophils 2.3 10^3/ul (1.5-7.7); Eosinophil % 1.7 %; Lymphocyte % 20.6 %; Nucleated Red Blood Cells % 0.1
[2022-08-02] MEDS ORDERED: Magnesium Sulfate IV 1GM/100ML 1 GM/100 ML BAG IV ONE (07:49)
[2022-08-02] MEDS: CMC: SitaGLIPtin 100 mg TAB (NF) PO SCH (10:58)
[2022-08-02 16:14] VITALS: BP 139/75
== END 2022-08-02 18:00 | disposition home or self-care (01) ==
LOC: EDHOLD 16:44 → ED 16:44 → SUATTDRO 20:15 → MED 08-01 17:14
PROVIDERS: ADMIT Internal Medicine; ATTEND Hospitalist

== ENCOUNTER 2023-05-02 08:00 | Inpatient (IN) ==
[~2023-05-02 08:00] MED LIST changes: -NS 0.9% 1000 ML* 1,000 ML IV SCH; +NS 0.9% 1000 ml BAG 1,000 ML IV ONE; -methylPREDNISolone 125 MG* 2 ML VIAL IV ONE
[2023-05-02] MEDS ORDERED: fentaNYL 100 mcg/2 ml 50 MCG/ML VIAL IV SLOW PU ONE (08:30)
[2023-05-02] MEDS ORDERED: Midazolam 10 mg/10 ml VIAL 1 mg/ml 10 ml VIAL (10 mg) IV SLOW PU ONE (08:30)
[2023-05-02 08:51] LABS: Hematocrit 40.9 % (38-53); Hemoglobin 13.8 g/dL (13.2-16.3); Mean Corpuscular Hemoglobin 31.1 pg (27-33); Mean Corpuscular Hgb Conc 33.7 g/dL (31-36); Mean Corpuscular Volume 92.5 fL (80-97); Mean Platelet Volume 7.7 fL (7.5-11.2); Platelet Count 301 10^3/uL (150-450); Red Blood Count 4.42 10^6/uL (4.06-5.63); Red Cell Distribution Width 15.1 % (12-17); White Blood Count 10.2 10^3/uL (3.6-10.2)
[2023-05-02 09:01] LABS: INR 1.14 (0.88-1.18)
[2023-05-02] MEDS ORDERED: Midazolam 5 mg/5 ml VIAL 1 mg/ml 5 ml VIAL (5 mg) ONE (09:08)
[2023-05-02] MEDS ORDERED: Heparin 2 UNITS/ML 1000 mls 2,000 ML IV ONE (09:09)
[2023-05-02] MEDS ORDERED: nitroGLYCERIN DRIP 25,000 MCG/250 ML BTL ONE (09:09)
[2023-05-02] MEDS ORDERED: VERAPAMIL 2.5 MG/ML 2 ML VIAL ** 5 mg/2 ml ONE (09:09)
[2023-05-02] MEDS ORDERED: Heparin 1,000 UNIT/ML 10 ml (10,000 UNITS) CATHLAB/DIALYSIS ONE (09:09)
[2023-05-02] MEDS ORDERED: Iohexol 350 (CONTRAST) 200 ML MDV IV ONE ×2 (09:09→10:30)
[2023-05-02] MEDS ORDERED: fentaNYL 100 mcg/2 ml 50 MCG/ML VIAL ONE (09:09)
[2023-05-02] MEDS ORDERED: Lidocaine 1% MPF 5 ML VIAL ONE (09:10)
[2023-05-02 09:21] LABS: Calcium 9.1 mg/dL (8.6-10.3); Potassium 4.2 mmol/L (3.5-5.0)
[2023-05-02 09:27] LABS: Creatinine, Serum 1.12 mg/dL (0.67-1.17); eGFR CKD-EPI 66.4 (>60)
[2023-05-02] MEDS ORDERED: Bivalirudin 250 MG VIAL ONE (10:23)
[2023-05-02] MEDS ORDERED: Iohexol 350 (CONTRAST) 100 ML PAK IV ONE (10:27)
[2023-05-02] MEDS ORDERED: NS 0.9% 1000 ml BAG 1,000 ML IV SCH (11:15)
[2023-05-03 05:26] LABS: ABS Eosinophils 0.6 10^3/uL (0.0-0.5); ABS Monocytes 1.1 10^3/uL (0.0-1.1); ABS Neutrophils 6.6 10^3/uL (1.5-7.6); ABS Nucleated RBC 0.01 10^3/ul; Eosinophil % 6.8 %; Hematocrit 38.7 % (38-53); Hemoglobin 13.2 g/dL (13.2-16.3); Lymphocyte % 10.4 %; Mean Corpuscular Hemoglobin 31.3 pg (27-33); Mean Corpuscular Hgb Conc 34.2 g/dL (31-36); Mean Corpuscular Volume 91.4 fL (80-97); Mean Platelet Volume 7.4 fL (7.5-11.2); Nucleated Red Blood Cells % 0.1 /100 WBC (0.0-0.4); Platelet Count 259 10^3/uL (150-450); Red Blood Count 4.23 10^6/uL (4.06-5.63); Red Cell Distribution Width 14.8 % (12-17); White Blood Count 9.4 10^3/uL (3.6-10.2)
[2023-05-03 05:41] LABS: Calcium 8.9 mg/dL (8.6-10.3); Creatinine, Serum 0.94 mg/dL (0.67-1.17); Potassium 3.9 mmol/L (3.5-5.0); eGFR CKD-EPI 81.9 (>60)
[2023-05-03 07:14] LABS: POC SO2 65 %
[2023-05-03 07:14] LABS: POC SO2 68 %
[2023-05-03 07:15] LABS: POC SO2 95 %
[2023-05-03 13:42] VITALS: BP 151/83
== END 2023-05-03 14:15 | disposition home or self-care (01) | DRG 247 ==
LOC: CHICATH 08:00 → ICU 11:17
PROVIDERS: ADMIT Specialist